=== PATIENT | female | born 1935 | race Caucasian/White ===

== ENCOUNTER 2019-01-31 14:47 | Inpatient (IN) ==
--- NOTE | 2019-01-31 15:14 | Diag Imaging Result Doc PS360 ---
EXAM: KNEE 1-2 VIEWS-RIGHT 01/31/2019 HISTORY: PAIN TECHNIQUE: Right knee two views portable COMMENT: There is joint space narrowing laterally with osteophyte formation. There is a small amount of fluid in the suprapatellar bursa. No evidence of acute fracture or dislocation is present. There is heterotopic ossification in the posterior calf. IMPRESSION: Osteoarthritis. No evidence of acute bony disease. Effusion. Electronically signed by Loyd Dallas 01/31/2019 3:12 PM
--- NOTE | 2019-01-31 16:48 | PROVIDER DOCUMENTATION ---
HPI-Musculoskeletal Pain/Inj - GENERAL Chief Complaint: Extremity Pain Stated Complaint: KNEE SWELLING Time Seen by Provider: 01/31/19 16:29 Source: patient - HX OF PRESENT ILLNESS-MUSKULOSKELTAL Nature of Presenting Problem: patient is a 83 yowf presenting to the ED today for right knee pain, swelling, and redness. she reports she fell on this knee 2 weeks ago, and it started swelling with the redness and warmth on Monday. she reports severe pain. she also reports chills. she denies any CP, SOB, dizziness, nausea, vomiting, diarrhea, fever. patient in no distress on assessment. Quality of Pain: reports: aching, throbbing Severity in ED: moderate Onset/Duration: 2 days ago Timing: still present, getting worse Modifying Factors: improves with: nothing. worse with: massage, movement, palpation Any recent injury?: Yes (fell on it 2 weeks ago ) Locality of Occurance: Home Similar Symptoms Previously?: No Recently seen or treated by another doctor?: No - LOWER EXTREMITY PAIN/INJURY Lower Extremities Pain: knee: right Context / Method of Injury: reports: fell (2 weeks ago) Associated Symptoms: reports: denies symptoms. denies: loss of bladder control, loss of bowel control, lower back pain, muscle spasms, numbness in legs/feet, sensory/motor loss, tingling in legs/feet, weakness in legs/feet Review of Systems - Adult - REVIEW OF SYSTEMS - ADULT Constitutional: reports: chills. denies: fever, night sweats Eyes: reports: no symptoms reported Ears, Nose, Mouth & Throat: reports: no symptoms reported Cardiovascular: reports: no symptoms reported. denies: chest pain, palpitations, syncope Respiratory: reports: no symptoms reported. denies: cough, shortness of breath, wheezing Gastrointestinal: reports: no symptoms reported. denies: abdominal pain, diarrhea, nausea, vomiting Genitourinary: reports: no symptoms reported Musculoskeletal: reports: joint pain (right knee) Integumentary: reports: no symptoms reported Neurological: reports: no symptoms reported. denies: dizziness/vertigo, headache/migraines Endocrine: reports: no symptoms reported Hematologic/Lymphatic: reports: no symptoms reported Allergic/Immunologic: reports: no symptoms reported All Other Systems: Reviewed and Negative Past History - Adult - PAST MEDICAL HISTORY-ADULT Review of Records: reports: Old Records Reviewed, Nursing Assessment Review, Medications Reviewed - SOCIAL HISTORY Smoking: denies Physical Exam-Injury Related - Physical Exam-Injury Related Initial Vital Signs Reviewed: Yes General Appearance: appears well, alert, no apparent distress Eyes: PERRL/EOMI Head, Ears, Nose, Mouth & Throat: normocephalic/atraumatic, moist mucous membranes, normal ENT inspection Neck: non-tender, full range of motion, supple Respiratory: chest non-tender, lungs clear, normal breath sounds, no pleuratic chest pain, no respiratory distress, no accessory muscle use Cardiovascular: normal peripheral pulses, regular rate, rhythm, no edema, no JVD Chest/Breast: deferred Peripheral Pulses: dorsalis-pedis (R): 2+, dorsalis-pedis (L): 2+ Abdominal Exam: normal bowel sounds, non tender, soft Female Genitalia/Pelvic Exam: deferred Rectal Exam: deferred Lymphatic: no adenopathy Back Exam: normal inspection, no CVA tenderness, no vertebral tenderness Extremity: normal range of motion, erythema (right knee), inflammation (right knee), joint effusion (right knee), swelling (right knee), tenderness (right knee) Integumentary: normal color, warm/dry Neurologic: grossly normal, no motor/sensory deficits Psych/Mental Status: normal mood/affect, normal thought content, normal thought process, oriented x 3 - Glascow Coma Score Best Eye Response ([place]): (4) open spontaneously Best Verbal Response ([place]): (5) oriented Best Motor Response ([place]): (6) obeys commands Progress - PLAN OF CARE/RESULTS Progress/Plan/Lab Results: Vital Signs - 8 hr 01/31/19 14:55 Temperature 98.6 F Pulse Rate 73 Respiratory Rate 18 Blood Pressure 162/63 O2 Sat by Pulse Oximetry 97 Laboratory Results - last 24 hr 01/31/19 01/31/19 01/31/19 17:25 17:25 17:25 WBC 12.14 H RBC 3.62 L Hgb 8.7 L Hct 29.4 L MCV 81.2 MCH 24.0 L MCHC 29.6 L RDW Std Deviation 17.4 H Plt Count 256 MPV 11.5 H Immature Gran % (Auto) 0.6 H Neut % (Auto) 56.6 Lymph % (Auto) 26.7 Whitfield % (Auto) 13.7 H Eos % (Auto) 2.1 Baso % (Auto) 0.3 Immature Gran # (Auto) 0.07 H Neut # (Auto) 6.88 H Lymph # (Auto) 3.24 Whitfield # (Auto) 1.66 H Eos # (Auto) 0.25 Baso # (Auto) 0.04 Sodium 141 Potassium 4.6 Chloride 101 Carbon Dioxide 29 Anion Gap 11 BUN 30 H Creatinine 1.4 H Estimated GFR/1.73 m2 36 BUN/Creatinine Ratio 21 Glucose 104 Calculated Osmolality 288 Uric Acid Calcium 9.1 Total Bilirubin 0.32 AST 12 ALT 11 Alkaline Phosphatase 52 Total Protein 5.7 L Albumin 3.8 Globulin 1.9 Albumin/Globulin Ratio 2.0 Plasma Lactate 1.2 01/31/19 17:25 WBC RBC Hgb Hct MCV MCH MCHC RDW Std Deviation Plt Count MPV Immature Gran % (Auto) Neut % (Auto) Lymph % (Auto) Whitfield % (Auto) Eos % (Auto) Baso % (Auto) Immature Gran # (Auto) Neut # (Auto) Lymph # (Auto) Whitfield # (Auto) Eos # (Auto) Baso # (Auto) Sodium Potassium Chloride Carbon Dioxide Anion Gap BUN Creatinine Estimated GFR/1.73 m2 BUN/Creatinine Ratio Glucose Calculated Osmolality Uric Acid 8.6 H Calcium Total Bilirubin AST ALT Alkaline Phosphatase Total Protein Albumin Globulin Albumin/Globulin Ratio Plasma Lactate Orders Category Date Time Status KNEE 1-2 VIEWS-RIGHT [RAD] Stat Exams 01/31/19 14:58 Completed BLOOD CULTURE [BLDCUL] Stat Lab 01/31/19 17:25 Ordered CBC WITH ELECTRONIC DIFF [HEME] Stat Lab 01/31/19 17:25 Completed COMPREHENSIVE METABOLIC PANEL [CHEM] Stat Lab 01/31/19 17:25 Completed LACTATE, PLASMA [CHEM] Stat Lab 01/31/19 17:25 Completed URIC ACID [CHEM] Stat Lab 01/31/19 17:25 Completed URINALYSIS W/POSS RFLX CULT [URINALYSIS] Stat Lab 01/31/19 16:55 Uncollected 0.9% Sodium Chloride Inj [Ns] 1,000 ml Med 01/31/19 16:57 Active IV 75 mls/hr Hydromorphone [Dilaudid] Med 01/31/19 18:43 Discontinued 0.5 mg IV NOW ONE Lidocaine 1% [Xylocaine 1%] Med 01/31/19 17:33 Discontinued 10 ml INJ NOW ONE Ondansetron [Zofran] Med 01/31/19 18:43 Discontinued 4 mg IV NOW ONE Piperacillin/Tazobactam [Zosyn] 3.375 gm Med 01/31/19 19:00 Discontinued 0.9% Sodium Chloride Inj [Ns] 50 ml IV NOW discussed plan of care with patient- she understands and agrees with plan of care and denies any questions at this time. discussed plan of care with Dr. Roque- he will assist in tapping right knee. 1830- Dr. Roque in to tap right knee. will call Dr. Patel. Result Diagrams: 01/31/19 17:25 01/31/19 17:25 - XRAY 1 XRAY: Right XRAY Study: Knee Impression: See EMR Report ( Signed EXAM: KNEE 1-2 VIEWS-RIGHT 01/31/2019 HISTORY: PAIN TECHNIQUE: Right knee two views portable COMMENT: There is joint space narrowing laterally with osteophyte formation. There is a small amount of fluid in the suprapatellar bursa. No evidence of acute fracture or dislocation is present. There is heterotopic ossification in the posterior calf. IMPRESSION: Osteoarthritis. No evidence of acute bony disease. Effusion. Electronically signed by Loyd Dallas 01/31/2019 3:12 PM 01/31/19 1512 Interpreting Physician: Loyd Dallas MD Dictated Date/Time: 01/31/19 1511 cc: Leonid Roque MD; Paola Crooks) - CONSULTS/PCP/HOSPITALIST Notification #1 *Consult/PCP/Hospitalist*: Dr. Patel Time Discussed: 18:40 Reason/Comments: admit for septic joint- will see patient tomorrow Consult Disposition: Admit #2 Consult: Dr. Canela Time Discussed: 19:30 Reason/Comments: admit for septic joint Consult Disposition: Will see in ED, Admit Procedures - ADDITIONAL PROCEDURES Additional Procedure: Injection of Bursa/Joint Time-Out Verification Completed?: Yes Site Prep: Betadine Anesthetic: 1%, Lidocaine/Xylocaine Volume of Anesthetic (ml's): 2 Description of Procedure (Other): Dr. Roque performed procedure to tap right knee. No aspirate obtained. unable to aspirate knee effusion. did under septic conditions, after cleaning thoroughly with Betadine. Departure - Departure Date of Disposition Decision: 01/31/19 Time of Disposition Decision: 18:42 DIAGNOSIS: Joint effusion Qualifiers: Effusion of joint location: knee Laterality: right Qualified Code(s): M25.461 - Effusion, right knee Disposition: ADMITTED INPATIENT 09 Certified Medical Emergency: Emergent Condition: Stable Referrals and Follow-Ups: Paola Crooks [Primary Care Provider] - - Critical Care Note This patient required my direct & personal management of CC.: No Attestation - Physician/ MAR Attestation Patient care was provided by Advanced Practice Provider:: Yes Advanced Practice Provider:: Delaney Brasher Advanced Practice Provider documentation review:: The Mid-level provider documentation, treatment plan and medical decision making was reviewed by the physician who agrees with all treatment and medical decision making by the MLP. The physician spent face to face time with patient:: Yes Advanced Practice Provider documentation review:: Supervising physician onsite and consulted in the evaluation and care of this patient. The physician did have a face to face encounter with the patient.
[2019-01-31] MEDS ORDERED: NS 1,000 ML IV ONE (16:57)
[2019-01-31] MEDS ORDERED: XYLOCAINE 1% INJ ONE (17:33)
[2019-01-31 17:45] LABS: BASO# 0.04 X1000 (0.0-0.2); BASO% 0.3 % (0.0-0.8); EOS# 0.25 X1000 (0.0-0.7); EOS% 2.1 % (0.0-10.0); HEMATOCRIT 29.4 % (37.0-47.0); HEMOGLOBIN 8.7 g/dL (12.0-16.0); IMM GRAN# 0.07 X1000 (0.0-0.04); IMM GRAN% 0.6 % (0.0-0.5); LYMPH# 3.24 X1000 (1.2-3.4); LYMPH% 26.7 % (20.5-51.1); MCHC 29.6 g/dL (33-37); MCV 81.2 FL (81-99); MONO# 1.66 X1000 (0.11-0.59); MONO% 13.7 % (1.7-9.3); MPV 11.5 FL (7.4-10.4); NEUT# 6.88 X1000 (1.4-6.5); NEUT% 56.6 % (42.2-75.2); PLT 256 X1000 (130-400); RBC 3.62 XMIL (4.2-5.4); RDW 17.4 % (11.5-14.5); WBC 12.14 X1000 (4.8-10.8)
[2019-01-31 18:23] LABS: ALBUMIN 3.8 g/dL (3.5-5.0); CALCIUM 9.1 mg/dL (8.8-10.2); CREATININE 1.4 mg/dL (0.5-0.9); POTASSIUM 4.6 mmol/L (3.5-5.1); TOTAL BILIRUBIN 0.32 mg/dL (0.20-1.00); TOTAL PROTEIN 5.7 g/dL (6.3-8.3)
[2019-01-31] MEDS ORDERED: DILAUDID IV ONE (18:43)
[2019-01-31] MEDS ORDERED: ZOFRAN IV ONE (18:43)
[2019-01-31] MEDS ORDERED: ZOSYN 3.375 GM in NS 50 ML IV ONE (19:00)
[2019-01-31] MEDS ORDERED: VANCOMYCIN 1 GM/NS 1 GM/250 ML IVPB IV ONE (20:13)
[2019-01-31 20:51] LABS: URINE SOURCE CATH
[2019-01-31 20:54] LABS: BILIRUBIN URINE NEGATIVE (NEGATIVE); BLOOD URINE NEGATIVE (NEGATIVE); COLOR YELLOW; GLUCOSE URINE NEGATIVE (NEGATIVE); KETONE URINE NEGATIVE (NEGATIVE); LEUKOCYTES URINE NEGATIVE (NEGATIVE); NITRITE URINE NEGATIVE (NEGATIVE); PH URINE 5.5; PROTEIN URINE 70 mg/dL (NEGATIVE); SP GRAVITY URINE 1.017; TURBIDITY URINE CLEAR (CLEAR); UROBILINOGEN URINE NORMAL (NORMAL)
[2019-01-31 20:56] LABS: UR EPITHELIAL CELLS <10 /HPF (<10); URINE BACTERIA NEGATIVE /HPF; URINE RBC <10 /HPF (<10); URINE WBC <10 /HPF (<10)
[2019-01-31] MEDS ORDERED: NORCO-7.5 PO PRN (20:56)
[2019-01-31] MEDS ORDERED: VANCOMYCIN IV PER PHARMACY MISC SCH (20:56)
[2019-01-31] MEDS ORDERED: TYLENOL PO PRN (20:56)
[2019-01-31] MEDS ORDERED: ZOFRAN IV PRN (20:56)
[2019-01-31] MEDS: SINGULAIR PO SCH (21:55)
[2019-01-31] MEDS: KLONOPIN PO SCH (21:55)
[2019-01-31] MEDS: LOVENOX SUBQ SCH (21:55)
[2019-01-31] MEDS: ROCEPHIN 2 GM in NS 50 ML IV SCH (21:55)
[2019-01-31] MEDS ORDERED: VANCOMYCIN 2,000 MG in NS 500 ML IV ONE (22:00)
--- NOTE | 2019-02-01 03:06 | HISTORY AND PHYSICAL ---
CHIEF COMPLAINT: Right knee swelling. HISTORY OF PRESENT ILLNESS: Patient is an 83-year-old very pleasant female who notes she fell approximately 2 weeks ago, started having pain almost immediately in her knee, but thought it would get better. Over the next 2 weeks began getting more red, swollen and irritated today. It was increased swelling, increased warmth. She was having difficulty walking. She is also having swelling in the lower extremity and therefore the family convinced her to come to the ER. REVIEW OF SYSTEMS: She denies any fevers, chills, cough, congestion. Denies any upper respiratory type symptoms. Denies any other joints or pains. Denies headaches, blurred vision. Denies any dysuria, urinary frequency, urgency, constipation, melena, hematochezia. Denies any skin rashes. Denies weight loss or weight gain. FAMILY HISTORY: Noncontributory. SOCIAL HISTORY: The patient lives at home. She is on oxygen. Does not smoke or drink. She lives alone. ALLERGIES: No known drug allergies. MEDICATIONS: Humira, albuterol, amlodipine/benazepril 10/40, clonazepam, Lexapro, Lasix 40. It appears as though she may be on losartan 100 as well, metoprolol 50, Singulair 10. PAST MEDICAL HISTORY: Significant for hypertension, depression, chronic anxiety, COPD. PHYSICAL EXAMINATION: VITAL SIGNS: Reviewed. Temperature 98 degrees, pulse 73, respiratory 18, BP 162/63, saturation 97% on room air. GENERAL: Patient is awake, alert, very pleasant. She is in no respiratory distress. HEENT: Normocephalic. NECK: Supple. CARDIOVASCULAR: Regular rate. No murmurs. CHEST: Clear and unlabored. ABDOMEN: Soft, obese, nondistended. EXTREMITIES: Moves all extremities although does have painful movement of right lower extremity with 1+ edema in her lower extremity. She does have good pulses. She has inflammation, erythema and swelling as well as joint effusion of the right knee with tenderness. NEUROLOGIC: She is awake, alert, oriented. She is in no respiratory distress. LABORATORIES: WBCs 12. Hemoglobin and hematocrit 8.7 and 29. CMP normal. ASSESSMENT: 1. Joint effusion right knee. 2. Probable septic joint, right knee. 3. Leukocytosis. 4. Gout. 5. Hypertension. 6. Chronic anxiety. 7. Chronic depression. PLAN: We will admit patient to hospital. IV antibiotics. We will follow. We will continue her home medications. We will consult Ortho for assistance. Further orders as needed. cc: Alex Canela MD
[2019-02-01 06:15] LABS: BASO# 0.01 X1000 (0.0-0.2); BASO% 0.1 % (0.0-0.8); EOS# 0.17 X1000 (0.0-0.7); EOS% 2.1 % (0.0-10.0); HEMATOCRIT 27.9 % (37.0-47.0); HEMOGLOBIN 8.1 g/dL (12.0-16.0); IMM GRAN# 0.04 X1000 (0.0-0.04); IMM GRAN% 0.5 % (0.0-0.5); LYMPH# 1.95 X1000 (1.2-3.4); LYMPH% 23.6 % (20.5-51.1); MCH 23.9 PG (27-31); MCV 82.3 FL (81-99); MONO# 1.07 X1000 (0.11-0.59); MONO% 12.9 % (1.7-9.3); MPV 11.5 FL (7.4-10.4); NEUT# 5.04 X1000 (1.4-6.5); NEUT% 60.8 % (42.2-75.2); PLT 246 X1000 (130-400); RBC 3.39 XMIL (4.2-5.4); RDW 17.4 % (11.5-14.5); WBC 8.28 X1000 (4.8-10.8)
[2019-02-01 06:42] LABS: CALCIUM 8.4 mg/dL (8.8-10.2); CREATININE 1.5 mg/dL (0.5-0.9); MAGNESIUM 1.9 mg/dL (1.5-2.7); POTASSIUM 3.9 mmol/L (3.5-5.1)
--- NOTE | 2019-02-01 07:49 | ORTHOPAEDICS CONSULTATION ---
DATE: 01/31/2019 CHIEF COMPLAINT: Right knee pain. CLINICAL HISTORY: Patient is a pleasant 83-year-old female who is approximately 2 weeks status post fall, landing on her right knee. She states that she has been doing relatively well on the knee until 2 days ago when she had developed redness and increased warmth 2 days ago. She reports that she has increased discomfort in the knee. Also has subjective chills. She denies any nausea, vomiting or dizziness. Given the patient's clinical findings, recommendation for admission to the hospital for IV antibiotics and further evaluation. Orthopedic consultation was requested. HOME MEDICATIONS: 1. Albuterol 2.5 mg inhaler q.4 hours p.r.n. 2. Symbicort 2 puffs inhaler p.o. daily. 3. Cefdinir 300 mg p.o. daily. 4. Lexapro 10 mg p.o. daily. 5. Lasix 20 mg p.o. daily. 6. Losartan/potassium 100 mg p.o. daily. 7. Metoprolol succinate 50 mg p.o. daily. 8. Prednisone 5 mg p.o. daily. 9. Potassium chloride 10 mg p.o. daily. 10. Amlodipine/benazepril 10/40 mg p.o. daily. 11. Clonazepam 0.25 mg p.o. at bedtime. 12. Singulair 10 mg p.o. daily. ALLERGIES: She has she has no known drug allergies. PHYSICAL EXAMINATION: The patient's right lower extremity has increased warmth along the anterior aspect of the knee along the prepatellar bursa. She has significant tenderness to palpation at this site. There is some firmness to the site and increased warmth. Remaining portion has some mild fullness. She has no obvious intra-articular effusion. She has good flexion and extension of the knee. She has no significant tenderness to palpation along the medial or lateral joint line. The calf is soft. IMAGING: X-rays were reviewed and revealed some degenerative arthritic changes. No evidence of acute abnormality. There appeared to be some fullness and fluid in the prepatellar bursa. IMPRESSION: Cellulitis of the right knee with prepatellar bursal infection. PLAN: At this point, given patient's findings, she has no clinical signs at this time of septic joint. She has been placed on IV antibiotics. We will monitor progress through the night to see how she responds through the night. All other questions are answered. cc: Byron Patel MD MTDD
[2019-02-01 10:09] LABS: URINE SOURCE CLEAN CATCH
[2019-02-01 10:17] LABS: BILIRUBIN URINE NEGATIVE (NEGATIVE); BLOOD URINE NEGATIVE (NEGATIVE); COLOR YELLOW; GLUCOSE URINE NEGATIVE (NEGATIVE); KETONE URINE NEGATIVE (NEGATIVE); LEUKOCYTES URINE SMALL (NEGATIVE); NITRITE URINE NEGATIVE (NEGATIVE); PH URINE 5.5; PROTEIN URINE 30 mg/dL (NEGATIVE); SP GRAVITY URINE 1.021; TURBIDITY URINE CLEAR (CLEAR); UR EPITHELIAL CELLS <10 /HPF (<10); URINE BACTERIA NEGATIVE /HPF; URINE RBC <10 /HPF (<10); URINE WBC <10 /HPF (<10); UROBILINOGEN URINE NORMAL (NORMAL)
[2019-02-01] MEDS: KLOR-CON PO SCH (10:18)
[2019-02-01] MEDS: LEXAPRO PO SCH (10:18)
[2019-02-01] MEDS: COZAAR PO SCH (10:19)
[2019-02-01] MEDS: LASIX PO SCH (10:19)
[2019-02-01] MEDS: PRILOSEC PO SCH (10:19)
[2019-02-01] MEDS: TOPROL XL PO SCH (10:19)
[2019-02-01] MEDS: PREDNISONE PO SCH (10:19)
[2019-02-01] MEDS: LOTREL 5/20 MG PO SCH (10:19)
[2019-02-01] MEDS: ALBUTEROL NEB INH PRN ×2 (11:43→19:41)
[2019-02-01] MEDS: SYMBICORT 160/4.5 MICROGM INHALER INH SCH (11:46)
[2019-02-01] MEDS: LOVENOX SUBQ SCH (23:04)
[2019-02-01] MEDS: SINGULAIR PO SCH (23:04)
[2019-02-01] MEDS: KLONOPIN PO SCH (23:04)
[2019-02-01] MEDS: ROCEPHIN 2 GM in NS 50 ML IV SCH (23:05)
--- NOTE | 2019-02-01 23:30 | ORTHOPAEDICS PROGRESS NOTE ---
DATE: 02/01/2019 SUBJECTIVE: The patient is a pleasant 83-year-old female who was admitted to the hospital yesterday with increased redness and warmth of her knee, consistent with cellulitis and suspicion for prepatellar bursal infection. The patient responded well through the night with IV antibiotics, and has less discomfort. OBJECTIVE: On physical exam, the patient's right lower extremity erythema is much improved. Still continues with tenderness to palpation anteriorly, likely due to her recent trauma from her fall 2 weeks ago. She has good range of motion of her knee. LABORATORY DATA: Her white count has improved to 8.8. She has decreased from 12.14 to 8.28 today. IMPRESSION: Right knee contusion with cellulitis. PLAN: At this point the patient seems to be responding well with IV antibiotics. We will continue. There are no signs or symptoms of a septic joint. The patient will be stable from an orthopedic standpoint, and we will be available if needed. cc: Byron Patel MD
--- NOTE | 2019-02-02 06:13 | Extremity Venous Study ---
PROCEDURE NAME: Venous U/S Right Leg - 01/31/2019 STUDY: Right lower extremity venous duplex, and color flow imaging study using the GE Vivid E9 Ultrasound System with a 9 L-D transducer. REFERRING PHYSICIAN: Dr. Canela. IDENTIFYING DATA: An 83-year-old female. SUPERVISOR DRAWING: Yvonne Enriquez RVT. INDICATIONS: Pain and edema right lower extremity. Rule out deep venous thrombosis. FINDINGS: Right common femoral vein and its branches, deep and superficial femoral veins were satisfactorily imaged. They had flow through them and were compressible. Right popliteal vein and the deep veins below the right knee were all compressible and had flow through them. The superficial veins of the right lower extremity were compressible throughout their length. INTERPRETATION: No evidence of acute deep or superficial venous thrombosis right lower extremity. cc: MD Victor M Rubio CRNP
[2019-02-02] MEDS: ALBUTEROL NEB INH PRN ×2 (07:21→19:27)
[2019-02-02] MEDS: SYMBICORT 160/4.5 MICROGM INHALER INH SCH (07:23)
[2019-02-02] MEDS: LEXAPRO PO SCH (09:06)
[2019-02-02] MEDS: TOPROL XL PO SCH (09:06)
[2019-02-02] MEDS: PRILOSEC PO SCH (09:06)
[2019-02-02] MEDS: KLOR-CON PO SCH (09:06)
[2019-02-02] MEDS: PREDNISONE PO SCH (09:06)
[2019-02-02] MEDS: LOTREL 5/20 MG PO SCH (09:07)
[2019-02-02] MEDS: LASIX PO SCH (09:07)
[2019-02-02] MEDS: COZAAR PO SCH (09:07)
--- NOTE | 2019-02-02 10:10 | PROGRESS NOTE ---
DATE: 02/02/2019 Ms. Quintero says she feels much better. Her right knee is much less tender and it appears less swollen as well. OBJECTIVE: Vital Signs: Temp, T-max was 97.5 degrees, pulse 80, respirations 18, blood pressure 122/50. HEENT: Pupils are equal and round. Lungs: Are clear in all lung warren. Cardiovascular: Regular rhythm and rate without murmur or S3. Abdomen: Is soft. Skin: Is warm and dry. Extremities: Right knee still with some warmth anterior knee but decreased swelling and decreased pain to bending the knee. ASSESSMENT AND PLAN: 1. Right knee contusion with cellulitis. This appears to be responding well to antibiotics. She had one of her blood cultures 1/2 grew out coagulase-negative Staphylococcus, so we will wait on ID. Clinically, she is doing much better. 2. Leukocytosis. 3. Gout. 4. Hypertension. 5. Anxiety. 6. Depression. Note she had a history of gout and this very well could be consistent with what is going on in the knee as well. I will check uric acid level. Actually, she had 1 drawn. It was 8.6. Electrolytes from yesterday: Sodium 141, potassium 4.39, chloride 104, BUN 28, creatinine 1.5. She is on vancomycin 1750 mg IV q.48 hours, getting ceftriaxone 2 g q.12 q.24 hours. I am going to put her on allopurinol 300 mg a day and start her on some colchicine twice a day. cc: Sudeep Villarreal MD
[2019-02-02] MEDS: COLBENEMID PO SCH ×2 (11:58→20:54)
[2019-02-02] MEDS: ZYLOPRIM PO SCH (11:58)
[2019-02-02] MEDS: KLONOPIN PO SCH (20:45)
[2019-02-02] MEDS: LOVENOX SUBQ SCH ×2 (20:45→22:28)
[2019-02-02] MEDS: SINGULAIR PO SCH (20:45)
[2019-02-02] MEDS: ROCEPHIN 2 GM in NS 50 ML IV SCH (20:48)
[2019-02-02] MEDS ORDERED: VANCOMYCIN 1,750 MG in NS 250 ML IV SCH (22:00)
[2019-02-03 06:28] LABS: BASO# 0.02 X1000 (0.0-0.2); BASO% 0.2 % (0.0-0.8); EOS# 0.46 X1000 (0.0-0.7); EOS% 5.2 % (0.0-10.0); HEMATOCRIT 28.6 % (37.0-47.0); HEMOGLOBIN 8.3 g/dL (12.0-16.0); IMM GRAN% 1.1 % (0.0-0.5); LYMPH# 1.91 X1000 (1.2-3.4); LYMPH% 21.5 % (20.5-51.1); MCV 82.7 FL (81-99); MONO# 0.94 X1000 (0.11-0.59); MONO% 10.6 % (1.7-9.3); MPV 11.4 FL (7.4-10.4); NEUT# 5.45 X1000 (1.4-6.5); NEUT% 61.4 % (42.2-75.2); PLT 331 X1000 (130-400); RBC 3.46 XMIL (4.2-5.4); RDW 17.5 % (11.5-14.5); WBC 8.88 X1000 (4.8-10.8)
[2019-02-03 06:47] LABS: ALB/GLOB RATIO 1.2; ALBUMIN 3.3 g/dL (3.5-5.0); CALCIUM 8.4 mg/dL (8.8-10.2); CREATININE 1.6 mg/dL (0.5-0.9); MAGNESIUM 2.2 mg/dL (1.5-2.7); POTASSIUM 4.8 mmol/L (3.5-5.1); TOTAL BILIRUBIN 0.21 mg/dL (0.20-1.00)
[2019-02-03] MEDS: SYMBICORT 160/4.5 MICROGM INHALER INH SCH (07:37)
[2019-02-03] MEDS ORDERED: LASIX IV ONE (07:59)
--- NOTE | 2019-02-03 08:10 | PROGRESS NOTE ---
DATE: 02/03/2019 SUBJECTIVE: She her knee feels much better. She says she is having no more trouble breathing this morning. She was sleeping when I came in. Had nasal cannula on. Easy to arouse. She did have some end expiratory wheezes appreciated. PHYSICAL EXAMINATION: Vital Signs: Temperature 97.9 degrees, pulse 74, respirations 18, blood pressure 141/67. HEENT: Pupils are equal round. Lungs: Clear in all lung warren but there is end expiratory wheezing and really no prolonged expiratory phase. Cardiovascular: Regular rhythm and rate without murmur or S3. Abdomen: Soft. Skin: Warm and dry. LABORATORY DATA: White count reviewed from yesterday 8880, hematocrit is 28, hemoglobin 8.3, platelet count 331,000. Sodium 141, potassium 4.8, chloride 105, BUN 26, creatinine 1.6. Yesterday, creatinine was 1.5. ASSESSMENT AND PLAN: 1. Right knee contusion with cellulitis. I suspect underlying acute gouty arthritis as well. I put her on colchicine and she is started on allopurinol. Her knee feels much better. We will continue her present antibiotics. 2. A bit of wheezing. She does have albuterol ordered. I am going to put her on a steroid inhaler. I will probably give her 1 dose of Lasix today 40 mg IV. She already takes Lasix 20 mg in the morning. Continue present regimen. She may be able to be discharged tomorrow. cc: Sudeep Villarreal MD
[2019-02-03] MEDS: ALBUTEROL NEB INH PRN ×4 (08:44→23:33)
[2019-02-03] MEDS: ADVAIR 250/50 DISKUS INH SCH ×2 (08:44→19:27)
[2019-02-03] MEDS: ZYLOPRIM PO SCH (09:47)
[2019-02-03] MEDS: KLOR-CON PO SCH (09:47)
[2019-02-03] MEDS: LEXAPRO PO SCH (09:47)
[2019-02-03] MEDS: PREDNISONE PO SCH (09:47)
[2019-02-03] MEDS: COZAAR PO SCH (09:47)
[2019-02-03] MEDS: LOTREL 5/20 MG PO SCH (09:47)
[2019-02-03] MEDS: COLBENEMID PO SCH ×2 (09:47→21:52)
[2019-02-03] MEDS: LASIX PO SCH (09:48)
[2019-02-03] MEDS: TOPROL XL PO SCH (09:48)
[2019-02-03] MEDS: PRILOSEC PO SCH (09:48)
[2019-02-03] MEDS: KLONOPIN PO SCH (21:51)
[2019-02-03] MEDS: LOVENOX SUBQ SCH (21:52)
[2019-02-03] MEDS: SINGULAIR PO SCH (21:52)
[2019-02-03] MEDS: ROCEPHIN 2 GM in NS 50 ML IV SCH (23:30)
[2019-02-04] MEDS ORDERED: LASIX IV ONE (08:09)
[2019-02-04] MEDS: SYMBICORT 160/4.5 MICROGM INHALER INH SCH (08:10)
[2019-02-04] MEDS: ALBUTEROL NEB INH PRN (08:10)
[2019-02-04] MEDS: LASIX PO SCH (08:12)
[2019-02-04] MEDS: LOVENOX SUBQ SCH ×2 (08:30→23:25)
[2019-02-04] MEDS: LEXAPRO PO SCH (08:31)
[2019-02-04] MEDS: PREDNISONE PO SCH (08:32)
[2019-02-04] MEDS: ZYLOPRIM PO SCH (08:32)
[2019-02-04] MEDS: TOPROL XL PO SCH (08:32)
[2019-02-04] MEDS: KLOR-CON PO SCH (08:32)
[2019-02-04] MEDS: PRILOSEC PO SCH (08:33)
[2019-02-04] MEDS: COLBENEMID PO SCH ×2 (08:33→23:25)
[2019-02-04] MEDS: LOTREL 5/20 MG PO SCH (08:33)
[2019-02-04] MEDS: COZAAR PO SCH (08:33)
[2019-02-04] MEDS ORDERED: NS 1,000 ML IV SCH (11:45)
--- NOTE | 2019-02-04 12:01 | Diag Imaging Result Doc PS360 ---
EXAM: CHEST-PORTABLE 02/04/2019 HISTORY: sob TECHNIQUE: AP portable at 1147 COMMENT: There is cardiomegaly. The pulmonary vascularity is increased and there is increased interstitial opacity in both bases. There are bilateral pleural effusions. There is atelectasis versus pneumonia in the left lower lobe. There are no previous studies. IMPRESSION: Cardiomegaly. Left pleural effusion greater than right pleural effusion. Mild interstitial pulmonary edema. Atelectasis versus pneumonia left lower lobe. Electronically signed by Loyd Dallas 02/04/2019 11:58 AM
--- NOTE | 2019-02-04 12:01 | PROGRESS NOTE ---
DATE: 02/04/2019 SUBJECTIVE: She is complaining of some shortness of breath this morning. Her right knee is better, but she reports that she has had shortness of breath at home like this as well. Apparently, she spent 2 weeks in [place]. She received some blood, and they treated her for pneumonia. Her primary care doctor is Dr. Komal Acosta. OBJECTIVE: Temperature 97.4 degrees, pulse 72, respirations 24 and blood pressure 145/92.HEENT: Pupils are equal and round. Lungs: Clear in all lung warren. Cardiovascular: Regular rhythm and rate without murmur or S3. Abdomen: Soft. Skin: Warm and dry. Extremities: Right knee with diminished swelling and no tenderness right now. Urine output by report looks like over 2 L. LABORATORY DATA: White count from yesterday 8880, down from 12,000 on admission, hematocrit 28, hemoglobin 8.3, and platelet count 331,000. Chemistries from yesterday show creatinine was 1.6. She came in with creatinine of 1.4. CURRENT ORDERS: She is on amlodipine and benazepril. She has a 5-10 combination. I think she is taking 2 tablets daily, Klonopin 0.25 mg at bedtime. I got her on colchicine 1 twice a day, Lexapro 10 mg a day, metoprolol 50 mg daily, Prilosec 40 mg a day, prednisone 5 mg a day, ceftriaxone 2 g IV q.24 hours, and vancomycin 1750 mg q.48 hours. I gave her 1 dose of Lasix yesterday and 1 dose today. We will repeat her chest x-ray now. I am going to get noninvasive venous studies of her legs. I went ahead and put her on high-dose Lovenox, and we will see if we can get a CT angiogram. Right now, I do want to do with her creatinine of 1.6 so we may need to get a V/Q scan instead. cc: Sudeep Villarreal MD
--- NOTE | 2019-02-04 14:50 | Diag Imaging Result Doc PS360 ---
EXAM: LUNG SCAN / VQ INDICATION: sob TECHNIQUE: 40.4 mCi of aerosolized technetium 99 DTPA was administered for the ventilation portion of the scan. 5.1 mCi of IV technetium 99 MAA was administered for the perfusion portion of the scan. COMPARISON: None. FINDINGS: No matched or unmatched perfusion defects are identified. The ventilation portion of the scan is unremarkable as well. IMPRESSION: Negative VQ scan. Electronically signed by Sohail Smith 02/04/2019 2:47 PM
[2019-02-04] MEDS: ADVAIR 250/50 DISKUS INH SCH (17:01)
[2019-02-04] MEDS: KLONOPIN PO SCH (23:25)
[2019-02-04] MEDS: SINGULAIR PO SCH (23:25)
[2019-02-05] MEDS: ALBUTEROL NEB INH PRN ×4 (04:35→19:33)
[2019-02-05 05:43] LABS: ALLEN TEST YES; BE 3.6 mmoll (-3.0-3.0); BLOOD TYPE ARTERIAL; HCO3-(ACT) 27.7 mmoll (20.0-26.0); METHB 0.5 % (0.0-1.5); MODALITY CANNULA; O2(CT) 10.7 mL/dL (15.0-23.0); O2HB 92.3 % (95.0-99.0); PCO2(98.6) 44 mmHg (35-45); PO2(98.6) 61 mmHg (60-100); SAMPLE BLOOD; SAO2 93.8 % (95.0-100.0); THB 8.2 g/dL (11.5-17.4); pH(98.6) 7.42 (7.35-7.45)
--- NOTE | 2019-02-05 07:12 | Diag Imaging Result Doc PS360 ---
EXAM: CHEST-PORTABLE 02/05/2019 HISTORY: pulmonary edema TECHNIQUE: AP portable at 0543 COMMENT: There is bibasilar atelectasis versus pneumonia and some opacity and volume loss in the inferior portion of the right upper lobe. The lower lobe opacity on the left has improved since 02/04/2019. The right upper lobe opacity is slightly worse. There continues to be cardiomegaly. There is increased pulmonary vascularity. The possibility of mild pulmonary edema cannot be excluded. IMPRESSION: Improved atelectasis versus pneumonia left lower lobe. Cardiomegaly and mild pulmonary edema. Electronically signed by Loyd Dallas 02/05/2019 7:10 AM
[2019-02-05 07:24] LABS: BASO# 0.06 X1000 (0.0-0.2); BASO% 0.7 % (0.0-0.8); EOS% 5.7 % (0.0-10.0); HEMATOCRIT 27.1 % (37.0-47.0); HEMOGLOBIN 7.9 g/dL (12.0-16.0); IMM GRAN# 0.19 X1000 (0.0-0.04); IMM GRAN% 2.2 % (0.0-0.5); LYMPH# 1.84 X1000 (1.2-3.4); LYMPH% 21.1 % (20.5-51.1); MCH 24.1 PG (27-31); MCHC 29.2 g/dL (33-37); MCV 82.6 FL (81-99); MONO# 1.03 X1000 (0.11-0.59); MONO% 11.8 % (1.7-9.3); NEUT% 58.5 % (42.2-75.2); PLT 355 X1000 (130-400); RBC 3.28 XMIL (4.2-5.4); RDW 17.8 % (11.5-14.5); WBC 8.72 X1000 (4.8-10.8)
[2019-02-05 07:46] LABS: ALB/GLOB RATIO 1.3; ALBUMIN 3.2 g/dL (3.5-5.0); CALCIUM 9.1 mg/dL (8.8-10.2); CREATININE 1.5 mg/dL (0.5-0.9); POTASSIUM 4.2 mmol/L (3.5-5.1); TOTAL BILIRUBIN 0.26 mg/dL (0.20-1.00); TOTAL PROTEIN 5.6 g/dL (6.3-8.3)
[2019-02-05] MEDS: SYMBICORT 160/4.5 MICROGM INHALER INH SCH (08:09)
[2019-02-05] MEDS: LASIX PO SCH (10:02)
[2019-02-05] MEDS: KLOR-CON PO SCH (10:04)
[2019-02-05] MEDS: TOPROL XL PO SCH (10:04)
[2019-02-05] MEDS: PREDNISONE PO SCH (10:04)
[2019-02-05] MEDS: PRILOSEC PO SCH (10:04)
[2019-02-05] MEDS: ZYLOPRIM PO SCH (10:04)
[2019-02-05] MEDS: COLBENEMID PO SCH ×2 (10:04→22:31)
[2019-02-05] MEDS: COZAAR PO SCH (10:04)
[2019-02-05] MEDS: LEXAPRO PO SCH (10:05)
[2019-02-05] MEDS: LOVENOX SUBQ SCH ×2 (10:05→22:34)
[2019-02-05] MEDS ORDERED: LASIX IV ONE (10:26)
[2019-02-05] MEDS: MAXIPIME 1 GM in NS 50 ML IV SCH (11:03)
[2019-02-05 11:06] LABS: IRON SATURATION 7 %; TIBC 291 ug/dL; TOTAL IRON 19 ug/dL (49-151); UNBOUND IRON 272 ug/dL (112-346)
[2019-02-05 11:19] LABS: FERRITIN 63 ng/mL (13-150)
[2019-02-05] MEDS ORDERED: VITAMIN D PO SCH (12:15)
--- NOTE | 2019-02-05 12:56 | Diag Imaging Result Doc PS360 ---
EXAM: CT THORAX W/O CONTRAST 02/05/2019 HISTORY: pneumonia TECHNIQUE: This exam was performed using automated exposure control, adjustment of mA or kV according to patient size, and/or use of iterative reconstruction technique. COMMENT: There are no previous studies available for comparison. There are bilateral pleural effusions. There are some nonspecific aorticopulmonary window and right paratracheal nodes. One of the latter measures up to 16 mm. There are calcifications in the aorta and coronary arteries. There is no evidence of acute bony abnormality. There are patchy groundglass opacities in the left upper lobe posteriorly and in the left lower lobe. There is compressive atelectasis in both lung bases. IMPRESSION: Bilateral pleural effusions. Bibasilar atelectasis. Left upper and lower lobe bronchopneumonia. Electronically signed by Loyd Dallas 02/05/2019 12:54 PM
[2019-02-05] MEDS: VENOFER 200 MG in NS 150 ML IV SCH (16:24)
[2019-02-05] MEDS: ZYVOX 600 MG/D5W 600 MG/300 ML IVPB IV SCH (18:24)
--- NOTE | 2019-02-05 19:05 | PROGRESS NOTE ---
DATE: 02/05/2019 SUBJECTIVE: The patient states that she still feels short of breath. OBJECTIVE: Vital Signs: Temperature 97.9 degrees, blood pressure 149/75, heart rate 88, respirations 22, O2 saturation is 96% on 3 L nasal cannula. General: This is a morbidly obese female, lying in bed in no acute distress. Heart: S1, S2 normal. Regular rate and rhythm. Lungs: Coarse breath sounds bilaterally. Diminished breath sounds at the bases. Abdomen: Positive bowel sounds. Soft, obese, nontender, nondistended. Extremities: Edema 1+ bilaterally. Neurologic: The patient is alert and oriented x3. LABORATORY DATA: White blood cell count 8.7, hemoglobin 7.9, hematocrit 27, platelets 355,000. Sodium 144, potassium 4.2, chloride 105, CO2 of 27, BUN 27, creatinine 1.5, glucose 97. ASSESSMENT AND PLAN: 1. Acute on chronic hypoxemic respiratory failure. The patient has bilateral pleural effusions and left-sided pneumonia. We will start the patient on antibiotics. We will also check a sputum culture. Initial blood cultures were noted to be negative. 2. Left lobe pneumonia. We will start the patient on cefepime and Zyvox, and check a sputum Gram stain and culture. 3. Bilateral pleural effusions. We will continue with diuretic therapy and monitor for improvement. 4. Morbid obesity. Aware. 5. Gout. Continue on allopurinol. 6. Chronic obstructive pulmonary disease. Continue on Symbicort and bronchodilator therapy. 7. Vitamin D deficiency. We will start the patient on vitamin D replacement. 8. Iron deficiency anemia. We will start the patient on Venofer infusions. 9. Anxiety disorder. Continue on Klonopin. 10. Right knee cellulitis. We will start the patient on antibiotic therapy. 11. Acute kidney injury on CKD. Improved. cc: Vesta Johnson MD MTDAdiel
[2019-02-05] MEDS: KLONOPIN PO SCH (22:31)
[2019-02-05] MEDS: SINGULAIR PO SCH (22:32)
[2019-02-06] MEDS: MAXIPIME 1 GM in NS 50 ML IV SCH ×2 (01:22→12:02)
[2019-02-06] MEDS: ZYVOX 600 MG/D5W 600 MG/300 ML IVPB IV SCH ×2 (04:52→16:17)
[2019-02-06 06:48] LABS: BASO# 0.11 X1000 (0.0-0.2); BASO% 1.1 % (0.0-0.8); EOS# 0.45 X1000 (0.0-0.7); EOS% 4.6 % (0.0-10.0); HEMATOCRIT 29.5 % (37.0-47.0); HEMOGLOBIN 8.6 g/dL (12.0-16.0); IMM GRAN# 0.51 X1000 (0.0-0.04); IMM GRAN% 5.2 % (0.0-0.5); LYMPH# 2.81 X1000 (1.2-3.4); LYMPH% 28.7 % (20.5-51.1); MCH 23.9 PG (27-31); MCHC 29.2 g/dL (33-37); MCV 81.9 FL (81-99); MONO# 1.06 X1000 (0.11-0.59); MONO% 10.8 % (1.7-9.3); MPV 10.8 FL (7.4-10.4); NEUT# 4.84 X1000 (1.4-6.5); NEUT% 49.6 % (42.2-75.2); PLT 430 X1000 (130-400); RDW 17.9 % (11.5-14.5); WBC 9.78 X1000 (4.8-10.8)
[2019-02-06 07:25] LABS: CALCIUM 8.9 mg/dL (8.8-10.2); CREATININE 1.3 mg/dL (0.5-0.9); POTASSIUM 3.3 mmol/L (3.5-5.1)
[2019-02-06] MEDS ORDERED: POTASSIUM CHLORIDE 20% LIQUID PO ONE (07:29)
[2019-02-06] MEDS: SYMBICORT 160/4.5 MICROGM INHALER INH SCH (07:45)
[2019-02-06] MEDS: ALBUTEROL NEB INH PRN ×2 (07:45→12:34)
[2019-02-06] MEDS: PREDNISONE PO SCH (09:30)
[2019-02-06] MEDS: KLOR-CON PO SCH (09:30)
[2019-02-06] MEDS: COLBENEMID PO SCH ×2 (09:30→21:25)
[2019-02-06] MEDS: ZYLOPRIM PO SCH (09:30)
[2019-02-06] MEDS: TOPROL XL PO SCH (09:30)
[2019-02-06] MEDS: LOVENOX SUBQ SCH (09:31)
[2019-02-06] MEDS: COZAAR PO SCH (09:31)
[2019-02-06] MEDS: PRILOSEC PO SCH (09:31)
[2019-02-06] MEDS: VENOFER 200 MG in NS 150 ML IV SCH (09:32)
[2019-02-06] MEDS ORDERED: LASIX IV ONE (09:47)
--- NOTE | 2019-02-06 18:50 | PROGRESS NOTE ---
DATE: 02/06/2019 SUBJECTIVE: The patient is resting comfortably in bed. She complains of shortness of breath and diarrhea. OBJECTIVE: Vital Signs: Temperature 98.2 degrees, blood pressure 146/60, heart rate 66, respirations 22, O2 saturation 95% on 3 L nasal cannula. Urine output 600, intake 1.1 L. General: This is a morbidly obese female lying in bed, in no acute distress. Heart: S1, S2 normal, bradycardic. Lungs: Coarse breath sounds bilaterally. Abdomen: Positive bowel sounds. Soft, nontender, nondistended. Extremities: Trace pedal edema. Neurologic: The patient is alert and oriented x3. LABORATORY DATA: White blood cell count 9.7, hemoglobin 8.6, hematocrit 29, platelets 430,000. Sodium 142, potassium 3.3, chloride 103, CO2 is 26, BUN 24, creatinine 1.3, glucose 111. ASSESSMENT AND PLAN: 1. Acute on chronic hypoxemic respiratory failure. Continue to treat the underlying pneumonia. 2. Left lobe pneumonia. Continue on cefepime and Zyvox. 3. Bilateral pleural effusions. Continue with diuretic therapy. 4. Morbid obesity. Aware. 5. Diarrhea. We will check the stool for Clostridium difficile and add lactobacillus. 6. Gout. Continue on allopurinol. 7. Vitamin D deficiency. Continue on vitamin D replacement. 8. Iron-deficiency anemia. Continue with iron supplementation. 9. Anxiety disorder. Continue on Klonopin. 10. Right knee cellulitis. Continue with antibiotic therapy. 11. Acute kidney injury on CKD. Improved. 12. Deep vein thrombosis prophylaxis. Continue on Lovenox. cc: MD KAYDEN Castro
[2019-02-06] MEDS: KLONOPIN PO SCH (21:25)
[2019-02-06] MEDS: CULTURELLE PO SCH (21:25)
[2019-02-06] MEDS: SINGULAIR PO SCH (21:26)
[2019-02-07] MEDS: MAXIPIME 1 GM in NS 50 ML IV SCH ×2 (01:38→13:25)
[2019-02-07] MEDS: ZYVOX 600 MG/D5W 600 MG/300 ML IVPB IV SCH ×2 (05:06→16:37)
[2019-02-07 07:33] LABS: HEMOGLOBIN 8.1 g/dL (12.0-16.0); MCH 24.6 PG (27-31); MCHC 28.9 g/dL (33-37); MCV 85.1 FL (81-99); MPV 10.3 FL (7.4-10.4); RBC 3.29 XMIL (4.2-5.4); RDW 17.9 % (11.5-14.5); WBC 8.19 X1000 (4.8-10.8)
[2019-02-07 07:43] LABS: MAGNESIUM 1.9 mg/dL (1.5-2.7); PHOSPHORUS 2.7 mg/dL (2.7-4.5)
[2019-02-07] MEDS: ALBUTEROL NEB INH PRN ×4 (07:43→23:21)
[2019-02-07] MEDS: SYMBICORT 160/4.5 MICROGM INHALER INH SCH (07:43)
[2019-02-07 07:50] LABS: CALCIUM 9.4 mg/dL (8.8-10.2); CREATININE 1.3 mg/dL (0.5-0.9)
[2019-02-07] MEDS: VENOFER 200 MG in NS 150 ML IV SCH (08:05)
[2019-02-07] MEDS: TOPROL XL PO SCH (08:06)
[2019-02-07] MEDS: COLBENEMID PO SCH ×2 (08:06→21:20)
[2019-02-07] MEDS: KLOR-CON PO SCH (08:06)
[2019-02-07] MEDS: LOVENOX SUBQ SCH (08:07)
[2019-02-07] MEDS: PRILOSEC PO SCH (08:07)
[2019-02-07] MEDS: CULTURELLE PO SCH ×2 (08:07→21:20)
[2019-02-07] MEDS: COZAAR PO SCH (08:07)
[2019-02-07] MEDS: PREDNISONE PO SCH (08:07)
[2019-02-07] MEDS: ZYLOPRIM PO SCH (08:07)
[2019-02-07] MEDS ORDERED: LASIX IV ONE (11:17)
[2019-02-07] MEDS ORDERED: IMODIUM PO ONE (15:09)
--- NOTE | 2019-02-07 16:35 | PROGRESS NOTE ---
DATE: 02/07/2019 SUBJECTIVE: The patient states that she did not sleep well last night. She states that she has been having liquid stools. OBJECTIVE: Vital Signs: Temperature 98.1 degrees, blood pressure 143/78, heart rate 62, respirations 20, O2 saturation 94% on 2 L nasal cannula. Intake 1 L; output 1.3 L. General: This is a chronically ill-appearing, elderly female lying in bed in no acute distress. Heart: S1, S2 normal. Regular rate and rhythm. Lungs: Coarse breath sounds bilaterally. Abdomen: Positive bowel sounds. Soft, nontender, nondistended. Extremities: No edema. No cyanosis. No calf tenderness. Neurologic: The patient is alert and oriented x3. LABS: White blood cell count 8, hemoglobin 8.1, hematocrit 28, platelets 388. Sodium 144, potassium 4, chloride 106, CO2 27. BUN 19, creatinine 1.3, glucose 110. ASSESSMENT AND PLAN: 1. Acute on chronic hypoxemic respiratory failure. 2. Left lower lobe pneumonia. Continue on cefepime, Zyvox and bronchodilator therapy. 3. Bilateral pleural effusions. Continue with diuretic therapy. Will repeat a chest x-ray tomorrow. 4. Morbid obesity. Aware. 5. Chronic kidney disease stage III. Stable. 6. Diarrhea. The stool for Clostridium difficile was negative. Will give the patient a dose of Imodium. 7. Vitamin D deficiency. Continue vitamin D replacement. 8. History of gout. Continue on allopurinol. 9. Anxiety disorder. Continue on Klonopin. 10. Iron deficiency anemia. The patient received 3 days of Venofer. We will continue to monitor the hemoglobin and hematocrit closely. 11. Deep vein thrombosis prophylaxis. Continue on Lovenox. 12. Continue with physical therapy. cc: Vesta Johnson MD
[2019-02-07] MEDS: SINGULAIR PO SCH (21:20)
[2019-02-07] MEDS: KLONOPIN PO SCH (21:20)
[2019-02-08] MEDS: ZYVOX 600 MG/D5W 600 MG/300 ML IVPB IV SCH ×2 (04:11→15:03)
[2019-02-08 07:22] LABS: HEMATOCRIT 26.9 % (37.0-47.0); HEMOGLOBIN 7.8 g/dL (12.0-16.0); MCH 24.8 PG (27-31); MCV 85.7 FL (81-99); MPV 10.5 FL (7.4-10.4); RBC 3.14 XMIL (4.2-5.4); RDW 17.9 % (11.5-14.5); WBC 7.55 X1000 (4.8-10.8)
[2019-02-08 07:31] LABS: CALCIUM 9.2 mg/dL (8.8-10.2); CREATININE 1.5 mg/dL (0.5-0.9); POTASSIUM 3.5 mmol/L (3.5-5.1)
[2019-02-08] MEDS: SYMBICORT 160/4.5 MICROGM INHALER INH SCH (08:08)
--- NOTE | 2019-02-08 08:09 | Diag Imaging Result Doc PS360 ---
EXAM: CHEST-2 VIEWS 02/08/2019 HISTORY: pneumonia TECHNIQUE: PA and lateral chest COMMENT: There are bilateral pleural effusions more so on the left than the right. This is worse than on 02/05/2019. There is apparent bibasilar atelectasis. IMPRESSION: Worsened pleural effusions. Electronically signed by Loyd Dallas 02/08/2019 8:06 AM
[2019-02-08] MEDS: ZYLOPRIM PO SCH (09:26)
[2019-02-08] MEDS: PRILOSEC PO SCH (09:26)
[2019-02-08] MEDS: COZAAR PO SCH (09:26)
[2019-02-08] MEDS: KLOR-CON PO SCH (09:26)
[2019-02-08] MEDS: PREDNISONE PO SCH (09:26)
[2019-02-08] MEDS: TOPROL XL PO SCH (09:26)
[2019-02-08] MEDS: CULTURELLE PO SCH ×2 (09:26→22:13)
[2019-02-08] MEDS: COLBENEMID PO SCH ×2 (09:26→22:27)
[2019-02-08] MEDS: LOVENOX SUBQ SCH (09:26)
[2019-02-08] MEDS ORDERED: LASIX IV ONE (11:15)
--- NOTE | 2019-02-08 12:07 | PROGRESS NOTE ---
DATE: 02/08/2019 SUBJECTIVE: Patient reports still short of breath. She did not sleep well last night. Denies any fever or chills. OBJECTIVE: Vital Signs: Temperature 98.5 degrees, heart rate 62, respiratory 14, blood pressure 149/50, O2 saturation 95% 3 L nasal cannula. General Examination: This is a chronically ill appearing and obese 83-year-old female lying in bed, in no acute distress. Cardiovascular: S1, S2 heard. No murmurs, gallops, or rubs. Regular rate and rhythm. Respiratory Exam: Coarse breath sounds noted in both pulmonary warren, mostly noted in both bases. Patient is not using any accessory muscles or having work of breathing. Abdomen: Soft, nontender to palpation. Nondistended. Bowel sounds present. No organomegaly. Extremities: No clubbing, cyanosis, or edema. Peripheral pulses present in both legs. Neurological: Patient is alert and oriented x3. Moves all 4 extremities. LABORATORY DATA: White cell count 7.55, hemoglobin 7.8, hematocrit 26.9, platelets 362,000. Normal BMP except creatinine 1.5. ASSESSMENT AND PLAN: 1. Acute on chronic hypoxemic respiratory failure. Patient is feeling short of breath. Hypoxemic respiratory failure secondary to left lower lobe pneumonia. The patient, even though she is on 3 L of oxygen by nasal cannula at home, she feels short of breath. She has left lower lobe pneumonia. She is receiving Zyvox and cefepime and also DuoNeb. The x-ray from today shows worsened pleural effusion, so in that regard, I decided to give to her 60 mg of Lasix IV. We will continue with current management. The patient is not developing any fever or there is no elevated white cell count. In any case, I prefer to consult Pulmonary and Infectious Disease and we will go from there. 2. Morbid obesity, aware. 3. Chronic kidney disease stage 2. Creatinine around baseline. 4. Diarrhea. Clostridium difficile workup was negative, so she is receiving Imodium. 5. Vitamin D deficiency. We will continue replenishing vitamin D. 6. History of gout. The patient is on allopurinol. 7. Anxiety disorder. Patient currently is on Klonopin. Will continue with same management. 8. Iron-deficiency anemia. Even though the patient has received 3 days of Venofer, her hemoglobin is still low in the range of 7.8. At this point, we will continue to monitor CBC daily. 9. Deep vein thrombosis prophylaxis, on Lovenox. 10. Physical deconditioning. We will continue with PT. cc: Tay Hwang MD
[2019-02-08] MEDS: MAXIPIME 1 GM in NS 50 ML IV SCH ×3 (14:14)
--- NOTE | 2019-02-08 19:27 | PULMONOLOGY CONSULTATION ---
DATE: 02/08/2019 REQUESTING PHYSICIAN: Tay Hwang MD REASON FOR CONSULTATION: Bronchopneumonia, bilateral pleural effusions. HISTORY OF PRESENT ILLNESS: Ms. Quintero is an 83-year-old white female with a greater than 40- pack-year history of tobacco, COPD and chronic hypoxemic respiratory failure, on continuous oxygen for the last several months but on chronic nocturnal oxygen for the last several years, who is chronically immunosuppressed while taking Humira for psoriasis. The patient injured her right knee which subsequently developed progressive swelling and pain, along with increasing lower extremity edema. She reported one chill and some sweats prior to coming to the emergency room. Her white blood count was elevated at 12.14. She was evaluated by Orthopedics, and attempt at aspiration of the right knee was negative. Her leukocytosis has resolved. The patient's family reports she does have snoring at night. She does have periods of witnessed apnea. She has been improving but has not yet returned to her baseline. PAST MEDICAL HISTORY: 1. Chronic obstructive pulmonary disease. 2. Psoriasis. 3. Hypoxemic respiratory failure. 4. Obesity. 5. Hypertension. 6. Anxiety/depression. 7. History of gout. SOCIAL HISTORY: The patient smoked from her late teens to early 20s until mid 60s. No alcohol use. FAMILY HISTORY: Noncontributory to current presentation. PHYSICAL EXAMINATION: Physical exam reveals an obese white female who is conversant and without increased work of breathing. Blood pressure 106/53, heart rate 69, respiratory rate 20, oxygen saturation 99% on nasal cannula. Maximum temperature during this hospital was 100.6 degrees on 02/01/2019, but she has been afebrile for the last 24 hours. HEENT: Pupils are equal and reactive. Oropharynx is clear. Neck is supple. Chest reveals diminished breath sounds in both lung bases with bilateral crackles. Cardiac exam: S1, S2. Abdomen is obese and soft. Extremities reveal some tenderness with erythema just lateral to the kneecap. The left leg is without edema or erythema. DIAGNOSTIC DATA: CT scan of the thorax revealed small bilateral pleural effusions, with minimal parenchymal infiltrates in the left upper and lower lobes. Chest x-ray today reveals bilateral effusions. IMPRESSION: An 83-year-old with: 1. Chronic obstructive pulmonary disease. 2. Hypoxemic respiratory failure. 3. Small effusions. 4. Minimal pneumonia/infiltrates on chest x-ray. 5. Witnessed obstructive sleep apnea events. 6. Chronic immunosuppression associated with Humira. 7. Cellulitis of the right knee. No fluid could be identified to suggest abscess. RECOMMENDATIONS: 1. Continue bronchial hygiene as you are doing. 2. Encourage ambulation. 3. Continue antibiotics. The patient is at risk for immunocompromised infections due to her immunocompromised state associated with continuous Humira use. 4. Recommend an outpatient sleep evaluation. cc: Edmond Norman MD
--- NOTE | 2019-02-08 19:57 | INFECTIOUS DISEASE CONSULT REP ---
DATE: 02/08/2019 CONCLUSION: The patient has cellulitis of her right leg, which occurred when she fell on her knee. She also has, as seen on CT scan, a left upper lobe pneumonia. RECOMMENDATIONS: I agree with treating the patient with Zyvox and cefepime. I have increased the dose of cefepime to 2 g IV every 12 hours. DISCUSSION: The patient tells me she fell on her knee and her leg became red. The patient tells me that now the erythema is much less than it was when she came in the hospital. She is not complaining of cough, but she did have increased shortness of breath. The patient's CBC shows a white count [place] 7550, hemoglobin 7.8, platelet count 362,000. Creatinine is 1.5, GFR is 33. Procalcitonin is 0.15, which translates into being unlikely to have pneumonia. Chest x-ray shows worsening pleural effusion. CT scan of the chest shows a left upper lobe pneumonia. PAST MEDICAL HISTORY/REVIEW OF SYSTEMS: Eyes and ears: She has decreased hearing and vision. Neck: No stiffness. Respiratory: See present illness. Cardiac: No chest pain or palpitations. Gastrointestinal: She does not have any nausea, vomiting, or diarrhea. Genitourinary: No dysuria or flank pain. Neurologic: No seizures. No loss of motor or sensory function. OBSTETRIC/GYNECOLOGIC HISTORY: She is a 10, para 10, AB 0. She has had a hysterectomy and bilateral salpingo-oophorectomy. She delivered one of her children by section. PREVIOUS HOSPITALIZATIONS/OPERATIONS: The patient has had 9 labor and deliveries and 1 section. She has had a hysterectomy and bilateral salpingo-oophorectomy. She has been in the hospital for anemia. MEDICAL DISEASES: Positive for borderline diabetes mellitus, congestive heart failure, chronic obstructive pulmonary disease. INFECTIOUS DISEASE HISTORY: Positive for pneumonia and UTI. FAMILY HISTORY: Positive for diabetes mellitus, stroke, myocardial infarction, and cancer. SOCIAL HISTORY: [place] She lives [place]. She is a . She stopped smoking cigarettes years ago. She does not drink alcoholic beverages or abuse drugs. ALLERGIES: Her chart lists no known drug allergies. HOME MEDICATIONS: Include Humira, albuterol, Symbicort, cefdinir, clonazepam, Lexapro, Lasix, losartan, metoprolol, Singulair, and prednisone. PHYSICAL EXAMINATION: Vital Signs: Temperature is 99 degrees, pulse 93, respirations 24, blood pressure 159/83. Patient weighs 164 pounds. General: This is an obese, elderly female. She is in no acute distress. Head/eyes/ears/nose/throat: She can hear my spoken words and see near objects. There are no white patches in her mouth. Neck: No meningismus. Lungs: Clear to auscultation. Cardiovascular: Heart rate is irregular. Abdomen: Soft and nontender. Neurologic: The patient is alert. She can move her extremities. There is no tremor. Her sensation is intact to touch. Her memory as regarding her medical history, seems intact. Extremities: The right leg shows some erythema around the right knee area. There is no definite fluid in the knee that I can palpate. The prepatellar bursa is not swollen or tender. Integument: No rash. Thank you for the consult. cc: Harsha Blake MD
[2019-02-08] MEDS: SINGULAIR PO SCH (22:13)
[2019-02-08] MEDS: KLONOPIN PO SCH (22:14)
[2019-02-08] MEDS: MAXIPIME 2 GM in NS 100 ML IV SCH (23:34)
[2019-02-09] MEDS: ZYVOX 600 MG/D5W 600 MG/300 ML IVPB IV SCH ×2 (04:12→15:12)
[2019-02-09 06:23] LABS: HEMATOCRIT 28.1 % (37.0-47.0); HEMOGLOBIN 8.3 g/dL (12.0-16.0); MCH 25.1 PG (27-31); MCHC 29.5 g/dL (33-37); MCV 84.9 FL (81-99); MPV 10.8 FL (7.4-10.4); RBC 3.31 XMIL (4.2-5.4); RDW 18.7 % (11.5-14.5); WBC 7.71 X1000 (4.8-10.8)
[2019-02-09] MEDS: SYMBICORT 160/4.5 MICROGM INHALER INH SCH (08:02)
[2019-02-09] MEDS: PREDNISONE PO SCH (08:48)
[2019-02-09] MEDS: LOVENOX SUBQ SCH (08:48)
[2019-02-09] MEDS: PRILOSEC PO SCH (08:50)
[2019-02-09] MEDS: COLBENEMID PO SCH ×2 (08:51→20:48)
[2019-02-09] MEDS: ZYLOPRIM PO SCH (08:51)
[2019-02-09] MEDS: KLOR-CON PO SCH (08:55)
[2019-02-09] MEDS: CULTURELLE PO SCH ×2 (08:58→20:47)
[2019-02-09] MEDS: ALBUTEROL NEB INH PRN ×3 (09:04→19:36)
[2019-02-09] MEDS: TOPROL XL PO SCH (09:16)
[2019-02-09] MEDS: COZAAR PO SCH (09:21)
[2019-02-09 10:03] LABS: BASO# 0.09 X1000 (0.0-0.2); BASO% 1.1 % (0.0-0.8); EOS# 0.48 X1000 (0.0-0.7); EOS% 5.7 % (0.0-10.0); HEMATOCRIT 31.1 % (37.0-47.0); HEMOGLOBIN 8.9 g/dL (12.0-16.0); IMM GRAN# 0.17 X1000 (0.0-0.04); LYMPH# 3.72 X1000 (1.2-3.4); LYMPH% 43.8 % (20.5-51.1); MCH 24.3 PG (27-31); MCHC 28.6 g/dL (33-37); MONO# 0.79 X1000 (0.11-0.59); MONO% 9.3 % (1.7-9.3); MPV 10.1 FL (7.4-10.4); NEUT# 3.24 X1000 (1.4-6.5); NEUT% 38.1 % (42.2-75.2); PLT 416 X1000 (130-400); RBC 3.66 XMIL (4.2-5.4); RDW 18.4 % (11.5-14.5); WBC 8.49 X1000 (4.8-10.8)
[2019-02-09 10:35] LABS: CALCIUM 9.6 mg/dL (8.8-10.2); CREATININE 1.6 mg/dL (0.5-0.9); POTASSIUM 3.9 mmol/L (3.5-5.1)
--- NOTE | 2019-02-09 12:00 | PROGRESS NOTE ---
DATE: 02/09/2019 SUBJECTIVE: I was called for event from the nurse that this patient was not feeling well and she was very short of breath. I came to her room and patient reports that she is more short of breath than yesterday. She was not able to sleep in a flat position but she denies any chest pain or fever. OBJECTIVE: Vital signs: Temperature 97.6 degrees, heart rate 61, respiratory rate 18, blood pressure 115/59, O2 saturation 95% on 3 L nasal cannula. General: This is a chronically ill appearing and obese 83-year-old female, lying in bed, in no acute distress. Cardiovascular: S1, S2 heard. No murmurs, gallops, or rubs. Regular rate and rhythm. Respiratory: Coarse breath sounds noted in both pulmonary warren, mostly noted in both bases. Actually, the same in comparing with yesterday. Patient is not using any accessory muscles or having work of breathing. Abdomen: Soft, nontender to palpation. Nondistended. Bowel sounds present. No organomegaly. Extremities: No clubbing, cyanosis, or edema. Peripheral pulses present in both legs. Neurological: The patient is alert and oriented x3. Moves 4 extremities. LABORATORY DATA: White cell count 8.49, hemoglobin 8.9, hematocrit 31.1 platelets 416,000. There is no BMP yet. ASSESSMENT AND PLAN: 1. Acute on chronic hypoxemic respiratory failure secondary to left lower lobe pneumonia. The patient continues to feel short of breath, actually is getting worse this morning. The patient has been evaluated by Infectious Disease doctor, in this case they decided to continue with Zyvox and cefepime, that the doses have increased to 2 every 12 hours. Regarding that change and being on DuoNeb every 4 hours as scheduled, the patient continues to complain or shortness of breath. So another concern from me is pulmonary embolism so in that regard, we are going to order a CT angiogram of the chest to rule out that condition. In the meantime, we will continue with current management. In this case, breathing treatments and intravenous steroids as well. 2. Chronic kidney disease stage 2. Creatinine around baseline. We will continue to monitor. 3. Diarrhea, resolved. 4. Vitamin D deficiency. We will continue with replenish vitamin D. 5. History of gout. We will continue with allopurinol. 6. Anxiety disorder. We will continue with Klonopin. 7. Iron deficiency anemia. The patient is going to receive Venofer and today the hemoglobin is 8.9. We will continue to monitor. 8. Deep vein thrombosis prophylaxis. On Lovenox. 9. Physical deconditioning. We will continue with physical therapy. DISPOSITION: Because this patient is getting more short of breath, I prefer to transfer her to [facility], do a CT angiogram of the chest and we will go from there. cc: Tay Hwang MD
[2019-02-09 12:43] LABS: HEMOGLOBIN A1C 5.8 % (4.8-6.0)
--- NOTE | 2019-02-09 13:05 | Diag Imaging Result Doc PS360 ---
EXAM: CT ANGIOGRM PULMONARY ARTERIES 02/09/2019 HISTORY: sob TECHNIQUE: This exam was performed using automated exposure control, adjustment of mA or kV according to patient size, and/or use of iterative reconstruction technique. COMMENT: 3-D MIPS were performed. There is no evidence of filling defects in the pulmonary arteries. There are bilateral pleural effusions. There is a hiatal hernia. There is some calcification in the left anterior descending coronary artery. The thoracic aorta is partially calcified and there is noncalcific atheromatous change. There is no evidence of dissection or aneurysm. There is compressive atelectasis in both lower lobes. There are old fractures of the third and fourth right anterior ribs, otherwise there is no evidence of acute bony abnormality. Compared to 02/05/2019, the pleural effusions and basilar atelectasis were present previously. Patchy groundglass opacities which were present previously in the lingula and left lower lobe have apparently resolved. IMPRESSION: No evidence of pulmonary emboli. Bilateral pleural effusions and atelectasis. Improved pneumonia in the left lower lobe and lingula. Electronically signed by Loyd Dallas 02/09/2019 1:03 PM
--- NOTE | 2019-02-09 13:39 | EKG Report ---
Test Performed on : 02/09/2019 1:02:00 PM Test Reason : Confirm Rhythm Blood Pressure : / mmHG Vent. Rate : 050 BPM Atrial Rate : 047 BPM P-R Int : 000 ms QRS Dur : 070 ms QT Int : 418 ms P-R-T Axes : 000 -01 200 degrees QTc Int : 381 ms Atrial fibrillation. with slow ventricular response. Moderate voltage criteria for LVH, may be normal variant ST & T wave abnormality, consider lateral ischemia Abnormal ECG No previous ECGs available Confirmed by Andrew Pimentel MD ([id number]) on 02/10/2019 9:33:12 PM
[2019-02-09] MEDS: MAXIPIME 2 GM in NS 100 ML IV SCH (15:12)
--- NOTE | 2019-02-09 17:39 | PULMONOLOGY PROGRESS NOTE ---
DATE: 02/09/2019 SUBJECTIVE: The patient reports some increased shortness of breath earlier today but this is apparently resolved. An EKG was performed which revealed atrial fibrillation with a slow ventricular response. She is being transferred to the [facility] and a CT pulmonary angiogram has been ordered by Dr. Butts. OBJECTIVE: Vital Signs: The patient has been afebrile for the last 24 hours, heart rate 67, respiratory rate 16, oxygen saturation 96% on nasal cannula. HEENT: Pupils are equal and reactive. Oropharynx is clear. Neck: Supple. Chest: Reveals prolonged expiratory phase with crackles in the lung bases. Cardiac: S1-S2. Abdomen: Obese and soft. Extremities: Reveal trace edema. LABORATORIES: CT angiogram is pending. White blood count 8.49, hemoglobin 8.9, platelet count 416,000. Sodium 141, potassium 3.9, chloride 100, bicarbonate 29, BUN 18, creatinine 1.6. IMPRESSION: An 83-year-old with 1. Chronic obstructive pulmonary disease. 2. Chronic hypoxemic respiratory failure. 3. Bilateral effusion. 4. Family witnessed obstructive sleep apnea events. 5. Chronic immunosuppression associated with Humira. 6. Cellulitis of the right knee. 7. New onset atrial fibrillation. 8. Increasing shortness of breath. The patient had negative V/Q scan earlier this admission. DISCUSSION: 83-year-old with problems outlined above. The patient does have some increased shortness of breath today. I suspect that this is multifactorial and due to atrial fibrillation with loss of atrial kick, COPD, and pleural effusions. PLAN: 1. Continue bronchial hygiene. 2. Will consider additional attempts at diuresis pending improvement in cardiac rate and output. 3. Continue current antibiotics. 4. Recommend outpatient sleep evaluation. 5. Follow up CT scan of the thorax after it has been completed. cc: Edmond Norman MD
[2019-02-09] MEDS: SINGULAIR PO SCH (20:47)
[2019-02-09] MEDS: KLONOPIN PO SCH (20:47)
[2019-02-10] MEDS: MAXIPIME 2 GM in NS 100 ML IV SCH ×2 (02:28→14:04)
[2019-02-10] MEDS: ZYVOX 600 MG/D5W 600 MG/300 ML IVPB IV SCH ×2 (02:28→14:04)
[2019-02-10 05:45] LABS: BASO# 0.07 X1000 (0.0-0.2); BASO% 0.9 % (0.0-0.8); EOS# 0.34 X1000 (0.0-0.7); EOS% 4.6 % (0.0-10.0); HEMATOCRIT 27.8 % (37.0-47.0); HEMOGLOBIN 8.1 g/dL (12.0-16.0); IMM GRAN# 0.12 X1000 (0.0-0.04); IMM GRAN% 1.6 % (0.0-0.5); LYMPH# 2.74 X1000 (1.2-3.4); LYMPH% 37.1 % (20.5-51.1); MCH 24.5 PG (27-31); MCHC 29.1 g/dL (33-37); MONO# 0.83 X1000 (0.11-0.59); MONO% 11.2 % (1.7-9.3); MPV 10.5 FL (7.4-10.4); NEUT# 3.28 X1000 (1.4-6.5); NEUT% 44.6 % (42.2-75.2); PLT 347 X1000 (130-400); RBC 3.31 XMIL (4.2-5.4); RDW 18.7 % (11.5-14.5); WBC 7.38 X1000 (4.8-10.8)
[2019-02-10 06:07] LABS: CREATININE 1.7 mg/dL (0.5-0.9); POTASSIUM 3.9 mmol/L (3.5-5.1)
[2019-02-10] MEDS: SYMBICORT 160/4.5 MICROGM INHALER INH SCH (08:12)
[2019-02-10] MEDS: ALBUTEROL NEB INH PRN ×4 (08:12→19:41)
--- NOTE | 2019-02-10 08:12 | PROGRESS NOTE ---
DATE: 02/10/2019 SUBJECTIVE: The patient reports feeling and breathing much better. Denies any chest pain or fever. OBJECTIVE: Vital Signs: Temperature 97.3 degrees, heart rate 93, respiratory rate 17, blood pressure 143/79, O2 saturation 94% on 3 L nasal cannula. General Examination: This is a chronically ill-appearing and obese, 83-year-old, female lying in bed, in no acute distress. Cardiovascular Examination: S1 and S2 heard. No murmurs, gallops, or rubs. Regular rate and rhythm. Respiratory Examination: Minimal coarse breath sounds noted in both pulmonary warren, mostly noted in bases. I do not hear any wheezing today. The patient is not using any accessory muscles or having work of breathing. Decreased breath sounds globally with minimal crackles noted in both pulmonary bases. I do not hear any wheezing. Patient is not using any accessory muscles or having work of breathing. Abdomen: Soft. A little bit distended but nontender to palpation. Bowel sounds present. No organomegaly. Extremities: No clubbing, cyanosis. Mild edema noted in both lower extremities. Peripheral pulses present in both legs. Neurological Examination: The patient is alert and oriented x3. Moves 4 extremities. Laboratory Data: White cell count 7.38, hemoglobin 8.1, hematocrit 27.8, platelets 347,000. BMP remarkable for creatinine of 1.6. ASSESSMENT AND PLAN: 1. Acute on chronic hypoxemic respiratory failure secondary to left lower lobe pneumonia. The patient reports feeling better today. She continues to require 2 L of oxygen by nasal cannula, that is the same that she used at home for her chronic obstructive pulmonary disease. Currently, she is receiving Zyvox. Today is day #5 of treatment. On cefepime, today is day #2 of this medication at 2 g intravenous every [address] Blake is also following this patient. She continues to receive DuoNeb every 4 hours as scheduled. We have ordered a CT angiogram of the chest for possible pulmonary embolism, considering her worsening shortness of breath, but it did not show any clot. It reveals bilateral pleural effusion, atelectasis. Considering that her renal function is elevated and bilateral pleural effusions are not big, and also the fact that this patient is feeling better, I do not think we need to use any Lasix at this time. Pulmonary is following this patient. We will follow recommendations. 2. Chronic kidney disease stage 2. Creatinine is a little bit elevated in comparing with baseline that is usually 1.4 to 1.5. We will continue to monitor. BMP daily. 3. Diarrhea, resolved. 4. Vitamin D deficiency. We will continue with repletion of vitamin D. 5. History of gout. The patient has been on colchicine and probenecid. Considering her renal function and the fact that she is not complaining of any pain, we will stop those medication now. 6. Anxiety disorder. We will continue with Klonopin. We are going to be cautious with this medication, considering that it can cause some respiratory depression. 7. Iron deficiency anemia. The patient here received Venofer three days. Hemoglobin is 8.1 today. We will continue to monitor. 8. Physical deconditioning. We will continue with physical therapy. 9. Disposition. At this point, we will continue to monitor here in the [facility] unit. We will follow recommendations from pulmonary and infectious disease. cc: Tay Hwang MD
--- NOTE | 2019-02-10 08:32 | INFECTIOUS DISEASE PROGRESS NO ---
DATE: 02/10/2019 PRESENT ILLNESS: The patient was admitted the hospital with cellulitis of her leg. This has improved quite a bit. She also was found on a CT scan to have a left upper lobe pneumonia. MEDICATIONS: The patient is on day 3 of a combination of Zyvox and cefepime. PHYSICAL EXAMINATION: Vital Signs: The patient's temperature is 97.7 degrees, pulse 93, respirations 17, blood pressure 143/79. General: This is an obese, elderly female. She seemed to be slightly dyspneic at rest. Head, Eyes, Ears, Nose, and Throat: She can hear my spoken words and see near objects. There is no drainage coming from her nose or ears. Neck: No meningismus. Lungs: There were bibasilar rales. Cardiovascular: Heart rate is regular. Abdomen: Soft and nontender. Neurologic: The patient is awake. She sitting in her bed. She is able to walk to the bathroom. LAB AND X-RAY: CBC today shows a white count of 7380, hemoglobin 8.1, and platelet count 347,000. The creatinine is 1.7. GFR is 29. The patient's pulmonary angiogram shows no evidence of pulmonary emboli. There are bilateral pleural effusions and atelectasis. There is improvement in the pneumonia in the left lower lobe and lingula. ASSESSMENT AND PLAN: The patient's cellulitis is almost completely cleared up. The patient still appears to have pneumonia. My plan would be to continue the current antibiotics. Also, a chest x- ray will be repeated. The patient has cellulitis of right leg which has healed and pneumonia in the left chest. My plan would be to continue the current antibiotics. COMORBIDITIES: The patient is elderly. She has borderline diabetes. She has congestive heart failure and chronic obstructive pulmonary disease. cc: Harsha Blake MD
[2019-02-10] MEDS: COZAAR PO SCH (08:40)
[2019-02-10] MEDS: CULTURELLE PO SCH ×2 (08:40→20:38)
[2019-02-10] MEDS: ZYLOPRIM PO SCH (08:40)
[2019-02-10] MEDS: LOVENOX SUBQ SCH (08:41)
[2019-02-10] MEDS: PRILOSEC PO SCH (08:41)
[2019-02-10] MEDS: KLOR-CON PO SCH (08:41)
[2019-02-10] MEDS: PREDNISONE PO SCH (08:41)
--- NOTE | 2019-02-10 15:26 | PULMONOLOGY PROGRESS NOTE ---
DATE: 02/10/2019 SUBJECTIVE: The patient is awake, alert, and conversant. She reports her breathing has improved. She is without specific complaints. OBJECTIVE: BP 122/53, heart rate 62, respiratory rate 17, oxygen saturation 98% on 3.5 L of nasal cannula. The patient has been afebrile for the last 24 hours.HEENT: Pupils are equal and reactive. Oropharynx appears clear. Neck: Supple. Chest: Reveals decreased breath sounds in the lung bases. Cardiac: S1, S2 with a regular rhythm. Abdomen: Obese and soft. Extremities: Reveal decreasing erythema over the right knee. LABORATORIES: Sodium 144, potassium 3.9, chloride 107, bicarbonate 28, BUN 20, creatinine 1.7. White blood count 7.38, hemoglobin 8.1, platelet count 347,000. IMPRESSION: An 83-year-old with 1. Chronic obstructive pulmonary disease. 2. Chronic hypoxemic respiratory failure. 3. Bilateral effusions. 4. Chronic immunosuppression associated with Humira use for psoriasis. 5. Cellulitis of the right knee, which continues to improve. 6. Atrial fibrillation. 7. Mild worsening of creatinine, possibly related to contrast use and chronic kidney disease. PLAN: 1. Continue current bronchial hygiene. 2. Continue oxygen for hypoxemic respiratory failure. 3. Antibiotics per Infectious Disease. 4. Recommend outpatient sleep evaluation. cc: Edmond Norman MD
[2019-02-10] MEDS: KLONOPIN PO SCH (20:37)
[2019-02-10] MEDS: SINGULAIR PO SCH (20:38)
[2019-02-11] MEDS: MAXIPIME 2 GM in NS 100 ML IV SCH ×2 (02:16→14:22)
[2019-02-11] MEDS: ZYVOX 600 MG/D5W 600 MG/300 ML IVPB IV SCH ×2 (02:16→14:22)
[2019-02-11 05:56] LABS: CREATININE 1.6 mg/dL (0.5-0.9); POTASSIUM 3.5 mmol/L (3.5-5.1)
--- NOTE | 2019-02-11 06:09 | Diag Imaging Result Doc PS360 ---
EXAM: CHEST-PORTABLE HISTORY: abnormal exam TECHNIQUE: Single view COMPARISON: 02/08/2019 FINDINGS: The heart remains enlarged. There is pulmonary edema and small pleural effusions. Atelectasis is found in the left base. IMPRESSION: Persistent cardiomegaly with pulmonary edema and pleural effusions consistent with congestive failure. Electronically signed by Jay Laura 02/11/2019 6:07 AM
[2019-02-11 06:21] LABS: BASO# 0.06 X1000 (0.0-0.2); BASO% 0.9 % (0.0-0.8); EOS# 0.31 X1000 (0.0-0.7); EOS% 4.6 % (0.0-10.0); HEMATOCRIT 27.2 % (37.0-47.0); HEMOGLOBIN 7.9 g/dL (12.0-16.0); IMM GRAN# 0.06 X1000 (0.0-0.04); IMM GRAN% 0.9 % (0.0-0.5); LYMPH# 2.39 X1000 (1.2-3.4); LYMPH% 35.7 % (20.5-51.1); MCH 24.7 PG (27-31); MONO# 0.62 X1000 (0.11-0.59); MONO% 9.3 % (1.7-9.3); MPV 10.6 FL (7.4-10.4); NEUT# 3.26 X1000 (1.4-6.5); NEUT% 48.6 % (42.2-75.2); PLT 298 X1000 (130-400); RDW 18.7 % (11.5-14.5)
--- NOTE | 2019-02-11 07:28 | INFECTIOUS DISEASE PROGRESS NO ---
DATE: 02/11/2019 PRESENT ILLNESS: The patient has cellulitis of her leg, and also left upper lobe pneumonia. MEDICATIONS: This is day 6 of treatment with Zyvox and cefepime. PHYSICAL EXAMINATION: Vital Signs: Temperature is 98.2 degrees, pulse 67, respirations 18, blood pressure 127/62. General: This is an obese, ill-appearing, elderly female. She is in no acute distress. HEENT: She can hear my spoken words and see near objects. I did not notice any white coating of her tongue. Neck: No pain with movement of the neck. Lungs: Clear to auscultation. Cardiovascular: Heart rate is regular. Abdomen: Soft and nontender. Neurologic: The patient is alert. She can move her extremities. She does not get up on her own. She has to call the nurses, and with their help, she can walk to the bathroom. Extremities: The patient has edema, but no erythema in either leg. IMAGING AND LABORATORY DATA: Chest x-ray shows pulmonary edema, atelectasis, and pleural effusions. The patient's creatinine is 1.6. GFR is 31. CBC shows a white count of 6700, hemoglobin 7.9, and platelet count 298,000. ASSESSMENT AND PLAN: The patient's cellulitis has cleared, and her pneumonia is much better. I have discussed with Dr. Butts, and since the patient lives in a trailer and is the only one living there, she may require going to rehabilitation. In any event, when the patient is discharged, I will give her oral antibiotics to complete treatment for her pneumonia. As mentioned above, the cellulitis has cleared. COMORBIDITIES: The patient is elderly. She has borderline diabetes. She also has congestive heart failure and chronic obstructive pulmonary disease. cc: Harsha Blake MD
[2019-02-11] MEDS: SYMBICORT 160/4.5 MICROGM INHALER INH SCH (08:10)
[2019-02-11] MEDS: PRILOSEC PO SCH (08:47)
[2019-02-11] MEDS: COZAAR PO SCH (08:47)
[2019-02-11] MEDS: LOVENOX SUBQ SCH (08:48)
[2019-02-11] MEDS: PREDNISONE PO SCH (08:48)
[2019-02-11] MEDS: KLOR-CON PO SCH (08:48)
[2019-02-11] MEDS: CULTURELLE PO SCH (08:48)
[2019-02-11] MEDS: ZYLOPRIM PO SCH (08:48)
--- NOTE | 2019-02-11 09:19 | PROGRESS NOTE ---
DATE: 02/11/2019 SUBJECTIVE: The patient continues to report feeling better. Denies any fever or chills. OBJECTIVE: Vital Signs: Temperature 97.4 degrees, heart rate 70, respiratory rate 18, blood pressure 103/57, O2 saturation 94% on 3 L nasal cannula. General: This is a chronically ill- appearing and obese, 83-year-old, female, lying in bed in no acute distress. Cardiovascular: S1, S2 heard. No murmurs, gallops, or rubs. Regular rate and rhythm. Respiratory: Minimal coarse breath sounds noted in both pulmonary warren, mostly noted in bases. The patient is not using any accessory muscles or having work of breathing. Abdomen: Soft, a little bit distended, but nontender to palpation. Bowel sounds present. No organomegaly. Extremities: No clubbing, cyanosis. Mild edema noted in both lower extremities, but better in comparing with previous days. Peripheral pulses present in both legs. Neurological: The patient is alert and oriented x3. Moves all 4 extremities. LABORATORY DATA: White cell count 6.7, hemoglobin 7.9, hematocrit 27.2, platelets 298,000. BMP normal, except creatinine 1.6. ASSESSMENT AND PLAN: 1. Acute on chronic hypoxemic respiratory failure secondary to left lower lobe pneumonia. Clinically, this patient continues to improve. For the last 2 days, she is reporting breathing better. Denies any fever or chills. Continues to require between 2 and 3 liters of oxygen by nasal cannula that is basically what she used at home. Currently, she is receiving Zyvox, day #6 of treatment, and cefepime, day #3 of treatment with 2 grams intravenously every 12 hours, but she was receiving 1 gram every 12 hours before. In any case, I have talked with Dr. Blake about her, and he thinks that pneumonia is almost resolved, as well as the knee infection, so I think at this point, she can be discharged on oral antibiotics. 2. Chronic kidney disease stage 2. Creatinine is still around baseline. Will continue to monitor BMP while she is here. 3. Diarrhea, resolved. 4. History of gout. We have stopped colchicine and probenecid because of renal function. She is not complaining of any pain at this point. Will continue with the same management. 5. Anxiety disorder. Will continue with Klonopin. 6. Iron-deficiency anemia. Hemoglobin is a little bit low today. If she reaches 7 or below, she may need to have 1 unit of blood transfused. 7. Physical deconditioning. At this point, the patient is doing better. We have consulted Physical Therapy and Occupational Therapy to see if this patient truly needs to go to rehab or if she can go home with home health. The patient agreed to go to rehab if needed. 8. Disposition. I think at this point, the patient is stable and she can be moved out of the CIC unit today. cc: Tay Hwang MD
[2019-02-11] MEDS: ALBUTEROL NEB INH PRN (10:59)
[2019-02-11 13:24] VITALS: BP 123/66
--- NOTE | 2019-02-12 14:34 | DISCHARGE SUMMARY ---
ADMISSION DATE: 01/31/2019 DISCHARGE DATE: 02/11/2019 ADMISSION DIAGNOSES: 1. Joint effusion, right knee. 2. Probable septic joint, right knee. 3. Leukocytosis. 4. Gout. 5. Hypertension. 6. Chronic anxiety. 7. Chronic depression. DISCHARGE DIAGNOSES: 1. Acute on chronic hypoxemic respiratory failure secondary to left lower lobe pneumonia. 2. Chronic kidney disease stage 2. 3. Diarrhea, resolved. 4. History of gout. 5. Anxiety disorder. 6. Iron deficiency anemia. 7. Physical deconditioning. 8. Right knee contusion with cellulitis and suspicion of prepatellar bursal infection but no clinical signs of septic joint, which resolved with antibiotics intravenously. CONSULTATIONS: 1. Byron Patel MD, for the right knee. 2. Harsha Blake MD, for the pneumonia. 3. Edmond Norman MD, for the respiratory failure. SURGERIES AND PROCEDURES: None. HOSPITAL COURSE: Santa Quintero is an 83-year-old female who presented to [facility] with complaints of right knee pain and swelling after a fall and difficulty walking. There was swelling. She had some leukocytosis with it. Orthopedic surgery was consulted, who diagnosed her right knee as a right knee contusion with cellulitis and suspicion of prepatellar bursal infection. She was initiated on antibiotics on admission. This improved the right knee. I guess at some point she was having diarrhea. C. difficile studies were sent and negative. At some point, she also developed pneumonia. By the , she was having trouble breathing. She was started on steroids, nebulizers, Lasix. A chest x-ray was performed. It showed some pneumonia of the left lower lobe in addition to pulmonary edema. She had a V/Q scan performed. It was negative. A CT showed left upper and lower lobe bronchopneumonia. She was changed to cefepime and Zyvox on the . At some point, she had iron deficiency anemia. Received 3 days of Venofer. She received Lasix for the pleural effusions. Pulmonary was consulted on the . She was seen by Dr. Norman and recommended her to have more ambulation and to continue her on the antibiotics due to her immunocompromised state secondary to continuous use of Humira, and for an outpatient sleep evaluation. Dr. Blake saw her on the . The only change he made was increasing the dose of the cefepime and he also continued with the Zyvox. Pulmonary arteriogram on the showed improving of the pneumonia. There was no PE. An EKG on the also showed atrial fibrillation with a slow ventricular response. She was discharged home with home health. She was breathing better. She went home with her 2 L of oxygen. She went home with oral antibiotics. DISCHARGE VITAL SIGNS: Temperature 99.0 degrees, heart rate 69, respiratory rate 18, blood pressure 123/66, O2 saturation 96% on 3 L nasal cannula. DISCHARGE LAB DATA: White blood cells 6000, hemoglobin 7, hematocrit 27, platelet count 298,000. Sodium 142, potassium 3.5, BUN is 18, creatinine is 1.6, glucose 116, calcium 9.0. PERTINENT IMAGING: On 01/31/2019, x-ray of the right knee, osteoarthritis and effusion. Lower extremity venous ultrasound of the right lower extremity, no DVT. On the 05 of February, chest x- ray, improved atelectasis versus pneumonia of the left lower lobe. Cardiomegaly and pulmonary edema. On the , V/Q scan, no pulmonary emboli. On the , chest x-ray, improved atelectasis and pneumonia. Still with cardiomegaly and pulmonary edema. On the , chest CT, bilateral pleural effusions, bibasilar atelectasis, left upper and lower lobe bronchopneumonia. On the , chest x-ray, worsening pleural effusions. On the , pulmonary arteriogram, no pulmonary emboli and it also showed improved pneumonia in the left lower lobe and lingula. It still showed bilateral pleural effusions and atelectasis. Then on the , had another chest x-ray, persistent cardiomegaly, pulmonary edema, pleural effusions consistent with congestive heart failure. EKG on the , atrial fibrillation with a slow ventricular response. Rate is 50. QTc was 381. DISCHARGE MEDICATIONS: 1. Singulair 10 mg p.o. nightly. 2. Albuterol inhaled every 4 hours p.r.n. 3. Clonazepam 0.25 mg p.o. nightly. 4. Humira. 5. Potassium chloride 10 mEq p.o. daily. 6. Lasix 20 mg p.o. daily. 7. Lexapro 10 mg p.o. daily. 8. Losartan potassium 100 mg p.o. daily. 9. Metoprolol succinate 50 mg p.o. daily. 10. Prednisone 5 mg p.o. daily. 11. Symbicort 160/4.5 two puffs inhaled daily. 12. Ceftin 500 mg p.o. every 12 hours. 13. Doxycycline 100 mg p.o. every 12 hours. 14. [place] 7.5 one tablet p.o. every 6 hours p.r.n. DISCHARGE ACTIVITY: As tolerated. DISCHARGE DIET: Regular. PHYSICIAN FOLLOWUP: Dr. Paola Crooks, Dr. Harsha Blake, Dr. Patricia Patel. DISCHARGE INSTRUCTIONS: Notify MD for fever of 101 or above, chest pain, shortness of breath, pain or swelling in your legs. You will need to follow with Dr. Blake in 1 week. [address] while taking pain medication. If your condition changes, contact physician and/or return to the emergency department. Changes may include, but are not limited to, shortness of breath, increased fatigue, excessive bleeding, unexplained weight loss or gain, unimaginable pain, signs or symptoms of infection. DISCHARGE DISPOSITION: Home with home health. Dictated by CLARICE Luu for Tay Hwang MD Addendum: Patient seen and examined by myself. Agree with CLARICE note. It reflects my assessment and plan. Patient is being discharged in stable condition. Will be seen by primary care doctor and Dr. Blake in 2 weeks. cc: CLARICE Luu MD [facility]
== END 2019-02-11 16:33 | disposition home health service (06) | DRG 602 ==
LOC: ED 14:47 → 4N 20:40 → SUATTDRO 20:40 → 3S 02-09 12:35 → 3N 02-11 14:39
PROVIDERS: ATTEND Internal Medicine

== ENCOUNTER 2019-02-16 19:42 | Inpatient (IN) ==
[2019-02-16] MEDS ORDERED: NS 1,000 ML IV PRN (19:58)
--- NOTE | 2019-02-16 20:35 | Diag Imaging Result Doc PS360 ---
EXAM: CT HEAD W/O CONTRAST HISTORY: stroke like symptoms TECHNIQUE: CT head without contrast COMPARISON: None. FINDINGS: No parenchymal hemorrhage. No epidural or subdural hematoma. No subarachnoid hemorrhage. Mild microvascular ischemic changes. No mass identified on this noncontrasted exam. No hydrocephalus. No sinus opacification. IMPRESSION: No hemorrhage. Mild microvascular ischemic changes. This exam was performed using automated exposure control, adjustment of mA or kV according to patient size, and/or use of iterative reconstruction technique. Electronically signed by Jay Laura 02/16/2019 8:32 PM
--- NOTE | 2019-02-16 20:39 | Diag Imaging Result Doc PS360 ---
EXAM: CHEST-PORTABLE HISTORY: stroke like symptoms TECHNIQUE: Portable chest COMPARISON: 02/11/2019 FINDINGS: The lungs are well expanded except for basilar atelectasis. The heart is mildly enlarged. The vessels are mildly distended. There are no infiltrates. Small effusions.. IMPRESSION: No significant interval change. Electronically signed by Jay Laura 02/16/2019 8:37 PM
[2019-02-16 20:46] LABS: BASO# 0.17 X1000 (0.0-0.2); BASO% 1.8 % (0.0-0.8); EOS# 0.38 X1000 (0.0-0.7); HEMATOCRIT 30.6 % (37.0-47.0); IMM GRAN# 0.27 X1000 (0.0-0.04); IMM GRAN% 2.8 % (0.0-0.5); LYMPH# 2.78 X1000 (1.2-3.4); LYMPH% 28.9 % (20.5-51.1); MCH 25.1 PG (27-31); MCHC 29.4 g/dL (33-37); MCV 85.2 FL (81-99); MONO% 12.5 % (1.7-9.3); MPV 10.7 FL (7.4-10.4); NEUT# 4.81 X1000 (1.4-6.5); PLT 277 X1000 (130-400); RBC 3.59 XMIL (4.2-5.4); RDW 19.6 % (11.5-14.5); WBC 9.61 X1000 (4.8-10.8)
[2019-02-16 20:53] LABS: INR 1.06; PROTIME 13.9 Seconds (11.0-16.0); PTT 25.4 Seconds (22.3-41.8)
[2019-02-16 21:03] LABS: ALB/GLOB RATIO 1.7; ALBUMIN 3.6 g/dL (3.5-5.0); CALCIUM 8.7 mg/dL (8.8-10.2); CREATININE 1.4 mg/dL (0.5-0.9); POTASSIUM 4.8 mmol/L (3.5-5.1); TOTAL BILIRUBIN 0.21 mg/dL (0.20-1.00); TOTAL PROTEIN 5.7 g/dL (6.3-8.3)
--- NOTE | 2019-02-16 21:48 | EKG Report ---
Test Performed on : 02/16/2019 7:55:57 PM Test Reason : AMS Blood Pressure : / mmHG Vent. Rate : 053 BPM Atrial Rate : 258 BPM P-R Int : 000 ms QRS Dur : 060 ms QT Int : 434 ms P-R-T Axes : 000 -03 203 degrees QTc Int : 407 ms Atrial fibrillation. with slow ventricular response. Moderate voltage criteria for LVH, may be normal variant Nonspecific ST and T wave abnormality Abnormal ECG When compared with ECG of 09-FEB-2019 13:02, No significant change was found Unconfirmed Result
[2019-02-16 21:59] LABS: BILIRUBIN URINE NEGATIVE (NEGATIVE); BLOOD URINE SMALL (NEGATIVE); COLOR YELLOW; GLUCOSE URINE NEGATIVE (NEGATIVE); KETONE URINE NEGATIVE (NEGATIVE); LEUKOCYTES URINE NEGATIVE (NEGATIVE); NITRITE URINE NEGATIVE (NEGATIVE); PROTEIN URINE 300 mg/dL (NEGATIVE); SP GRAVITY URINE 1.015; TURBIDITY URINE CLEAR (CLEAR); URINE SOURCE CLEAN CATCH; UROBILINOGEN URINE NORMAL (NORMAL)
[2019-02-16 22:00] LABS: UR EPITHELIAL CELLS <10 /HPF (<10); URINE BACTERIA NEGATIVE /HPF; URINE RBC <10 /HPF (<10); URINE WBC <10 /HPF (<10)
[2019-02-16 22:14] LABS: UR AMPHETAMINES QUAL NONE DETECTED (NONE DETECT); UR BARBITUATES QUAL NONE DETECTED (NONE DETECT); UR BENZODIAZEPIN QUAL NONE DETECTED (NONE DETECT); UR CANNABINOIDS QUAL NONE DETECTED (NONE DETECT); UR COCAINE QUAL NONE DETECTED (NONE DETECT); UR METHADONE QUAL NONE DETECTED (NONE DETECT); UR OPIATES QUAL NONE DETECTED (NONE DETECT); UR OXYCODONE QUAL NONE DETECTED (NONE DETECT); UR PCP QUAL NONE DETECTED (NONE DETECT)
--- NOTE | 2019-02-16 22:51 | PROVIDER DOCUMENTATION ---
This chart was entered by Leonie Johnson Scribe, acting as scribe for Ken Razo MD. HPI-Neurological Disorder - General Chief Complaint: Altered Mental Status Stated Complaint: ams Time Seen by Provider: 02/16/19 19:45 Source: patient Allergies/Adverse Reactions: Patient Allergies Allergy/AdvReac Type Severity Reaction Status Date / Time No Known Allergies Allergy Verified 01/31/19 18:42 Home Medications: Home Medication List Medication Instructions Recorded Confirmed Last Taken Type Adalimumab [Humira Pen] 1 dose SUBQ DIRECTED 01/31/19 02/16/19 Unknown History Albuterol [Albuterol Neb] 2.5 mg INH Q4HR PRN 01/31/19 02/16/19 Unknown History Budesonide/Formoterol Fumarate 2 puff INH DAILY 01/31/19 02/16/19 Unknown History [Symbicort 160-4.5 Mcg Inhaler] Clonazepam 0.25 mg PO HS 01/31/19 02/16/19 Unknown History Escitalopram Oxalate [Lexapro] 10 mg PO DAILY 01/31/19 02/16/19 Unknown History Furosemide [Lasix] 20 mg PO DAILY 01/31/19 02/16/19 Unknown History Losartan Potassium 100 mg PO DAILY 01/31/19 02/16/19 Unknown History Metoprolol Succinate 50 mg PO DAILY 01/31/19 02/16/19 Unknown History Montelukast [Singulair] 10 mg PO QHS 01/31/19 02/16/19 Unknown History Potassium Chloride [Klor-Con M10] 10 meq PO DAILY 01/31/19 02/16/19 Unknown History Prednisone 5 mg PO DAILY 01/31/19 02/16/19 Unknown History CefUROXIME [Ceftin] 500 mg PO Q12HR #28 tab 02/11/19 02/16/19 Unknown Rx Doxycycline 100 mg PO Q12H #14 tab 02/11/19 02/16/19 Unknown Rx Hydrocodone/APAP 7.5 mg/325 mg 1 tab PO Q6H PRN #15 tab 02/11/19 02/16/19 Unknown Rx [[place]-7.5] - History of Present Illness-Neuro Nature of Presenting Problem: Pt is 83/F presenting to ED after an episode of R sided facial drooping and what family described as "talking out of her head". SX started about 1 hr ago and lasted about 30 minutes. Pt arrived to ED via EMS. Hx of CHF and COPD. Pt denies any weaknesses or speech deficits. Onset/Duration: reports: 1 hour ago Timing: reports: gone now Context: reports: impaired speech, facial droop Any recent trauma/injury?: reports: none Cognitive Baseline: alert, oriented x3 Gait Baseline: walks without assistance Associated Symptoms: reports: denies symptoms Review of Systems - Adult - REVIEW OF SYSTEMS - ADULT Constitutional: reports: no symptoms reported. denies: chills, fever Eyes: reports: no symptoms reported Ears, Nose, Mouth & Throat: reports: no symptoms reported Cardiovascular: reports: no symptoms reported. denies: chest pain Respiratory: reports: no symptoms reported Gastrointestinal: reports: no symptoms reported. denies: abdominal pain, nausea, vomiting Genitourinary: reports: no symptoms reported Musculoskeletal: reports: no symptoms reported Integumentary: reports: no symptoms reported Neurological: reports: no symptoms reported. denies: dizziness/vertigo, headach e/migraines Psychiatric: reports: no symptoms reported Endocrine: reports: no symptoms reported Hematologic/Lymphatic: reports: no symptoms reported Allergic/Immunologic: reports: no symptoms reported All Other Systems: Reviewed and Negative Past History - Adult - PAST MEDICAL HISTORY-ADULT Review of Records: reports: Old Records Reviewed, Nursing Assessment Review, Me dications Reviewed, Social history reviewed & non-contributory. - SOCIAL HISTORY Substance Use: none/never Alcohol Use Frequency: never Living Situation: family Physical Exam- Neurological - Physical Exam-Neuro Initial Vital Signs Reviewed: Yes General Appearance: appears well, alert, no apparent distress Progress - PLAN OF CARE/RESULTS Progress/Plan/Lab Results: Vital Signs - 8 hr 02/16/19 20:02 Temperature 97.9 F Pulse Rate 55 L Respiratory Rate 18 O2 Sat by Pulse Oximetry 96 Laboratory Results - last 24 hr 02/16/19 02/16/19 02/16/19 19:49 20:34 20:34 WBC 9.61 RBC 3.59 L Hgb 9.0 L Hct 30.6 L MCV 85.2 MCH 25.1 L MCHC 29.4 L RDW Std Deviation 19.6 H Plt Count 277 MPV 10.7 H Immature Gran % (Auto) 2.8 H Neut % (Auto) 50.0 Lymph % (Auto) 28.9 [place] % (Auto) 12.5 H Eos % (Auto) 4.0 Baso % (Auto) 1.8 H Immature Gran # (Auto) 0.27 H Neut # (Auto) 4.81 Lymph # (Auto) 2.78 [place] # (Auto) 1.20 H Eos # (Auto) 0.38 Baso # (Auto) 0.17 Segmented Neutrophils Not Reportable PT INR PTT (Actin FS) Sodium 141 Potassium 4.8 Chloride 105 Carbon Dioxide 29 Anion Gap 7 BUN 27 H Creatinine 1.4 H Estimated GFR/1.73 m2 36 BUN/Creatinine Ratio 19 Glucose 105 H POC Glucose 113 H Calculated Osmolality 287 Calcium 8.7 L Total Bilirubin 0.21 AST 15 ALT 22 Alkaline Phosphatase 51 Troponin T Total Protein 5.7 L Albumin 3.6 Globulin 2.1 Albumin/Globulin Ratio 1.7 Urine Source Urine Color Urine Turbidity Urine pH Ur Specific [place] Urine Protein Ur Glucose (Stick) Ur Ketones (Stick) Urine Blood Urine Nitrite Urine Bilirubin Urobilinogen Dipstick Urine Leukocytes Urine WBC (Auto) Urine RBC (Auto) U Epithel Cells (Auto) Urine Bacteria (Auto) Urine Opiates Screen Ur Oxycodone Screen Ur Methadone, Qual Ur Barbiturates Screen Ur Phencyclidine Scrn Ur Amphetamines Screen U Benzodiazepines Scrn Urine Cocaine Screen U Cannabinoids Screen 02/16/19 02/16/19 02/16/19 20:34 20:34 21:50 WBC RBC Hgb Hct MCV MCH MCHC RDW Std Deviation Plt Count MPV Immature Gran % (Auto) Neut % (Auto) Lymph % (Auto) [place] % (Auto) Eos % (Auto) Baso % (Auto) Immature Gran # (Auto) Neut # (Auto) Lymph # (Auto) [place] # (Auto) Eos # (Auto) Baso # (Auto) Segmented Neutrophils PT 13.9 INR 1.06 PTT (Actin FS) 25.4 Sodium Potassium Chloride Carbon Dioxide Anion Gap BUN Creatinine Estimated GFR/1.73 m2 BUN/Creatinine Ratio Glucose POC Glucose Calculated Osmolality Calcium Total Bilirubin AST ALT Alkaline Phosphatase Troponin T < 0.010 Total Protein Albumin Globulin Albumin/Globulin Ratio Urine Source CLEAN CATCH Urine Color YELLOW Urine Turbidity CLEAR Urine pH 6.0 Ur Specific [place] 1.015 Urine Protein 300 A Ur Glucose (Stick) NEGATIVE Ur Ketones (Stick) NEGATIVE Urine Blood SMALL A Urine Nitrite NEGATIVE Urine Bilirubin NEGATIVE Urobilinogen Dipstick NORMAL Urine Leukocytes NEGATIVE Urine WBC (Auto) <10 Urine RBC (Auto) <10 U Epithel Cells (Auto) <10 Urine Bacteria (Auto) NEGATIVE Urine Opiates Screen Ur Oxycodone Screen Ur Methadone, Qual Ur Barbiturates Screen Ur Phencyclidine Scrn Ur Amphetamines Screen U Benzodiazepines Scrn Urine Cocaine Screen U Cannabinoids Screen 02/16/19 21:50 WBC RBC Hgb Hct MCV MCH MCHC RDW Std Deviation Plt Count MPV Immature Gran % (Auto) Neut % (Auto) Lymph % (Auto) [place] % (Auto) Eos % (Auto) Baso % (Auto) Immature Gran # (Auto) Neut # (Auto) Lymph # (Auto) [place] # (Auto) Eos # (Auto) Baso # (Auto) Segmented Neutrophils PT INR PTT (Actin FS) Sodium Potassium Chloride Carbon Dioxide Anion Gap BUN Creatinine Estimated GFR/1.73 m2 BUN/Creatinine Ratio Glucose POC Glucose Calculated Osmolality Calcium Total Bilirubin AST ALT Alkaline Phosphatase Troponin T Total Protein Albumin Globulin Albumin/Globulin Ratio Urine Source Urine Color Urine Turbidity Urine pH Ur Specific [place] Urine Protein Ur Glucose (Stick) Ur Ketones (Stick) Urine Blood Urine Nitrite Urine Bilirubin Urobilinogen Dipstick Urine Leukocytes Urine WBC (Auto) Urine RBC (Auto) U Epithel Cells (Auto) Urine Bacteria (Auto) Urine Opiates Screen NONE DETECTED Ur Oxycodone Screen NONE DETECTED Ur Methadone, Qual NONE DETECTED Ur Barbiturates Screen NONE DETECTED Ur Phencyclidine Scrn NONE DETECTED Ur Amphetamines Screen NONE DETECTED U Benzodiazepines Scrn NONE DETECTED Urine Cocaine Screen NONE DETECTED U Cannabinoids Screen NONE DETECTED Orders Category Date Time Status Cardiac Monitoring DIRECTED Care 02/16/19 19:59 Active Finger Stick Blood Sugar (ED) DIRECTED Care 02/16/19 19:59 Active Saline Loc NOW Care 02/16/19 19:59 Active CHEST-PORTABLE [RAD] Stat Exams 02/16/19 19:[address] HEAD W/O CONTRAST [CT] Stat Exams 02/16/19 19:59 Completed CBC WITH ELECTRONIC DIFF [HEME] Stat Lab 02/16/19 20:34 Completed COMPREHENSIVE METABOLIC PANEL [CHEM] Stat Lab 02/16/19 20:34 Completed PROTIME WITH INR [COAG] Stat Lab 02/16/19 20:34 Completed PTT [COAG] Stat Lab 08/17/19 20:34 Completed TROPONIN T Stat Lab 02/16/19 20:34 Completed URINALYSIS W/POSS RFLX CULT [URINALYSIS] Stat Lab 02/16/19 21:50 Completed URINE DRUG SCREEN Stat Lab 02/16/19 21:50 Completed 0.9% Sodium Chloride Inj [Ns] 1,000 ml Med 02/16/19 19:58 Active IV 125 mls/hr EKG [EKG] Stat Ther 02/16/19 19:59 Draft Result Diagrams: 02/16/19 20:34 02/16/19 20:34 Departure - Departure Date of Disposition Decision: 02/16/19 Time of Disposition Decision: 22:50 DIAGNOSIS: TIA (transient ischemic attack) Disposition: ADMITTED INPATIENT 09 Certified Medical Emergency: Emergent Condition: Stable Referrals and Follow-Ups: Paola Crooks [Primary Care Provider] - - Critical Care Note This patient required my direct & personal management of CC.: No Attestation - Physician/ MAR Attestation Patient care was provided by Advanced Practice Provider:: No The physician spent face to face time with patient:: Yes Advanced Practice Provider documentation review:: Supervising physician onsite and consulted in the evaluation and care of this patient. The physician did have a face to face encounter with the patient. - NIH Stroke Scale Level of Consciousness: 0-Alert This chart was documented by the indicated scribe, (Leonie Johnson, Scribe) and accurately reflects the services I performed and decisions made by me, Ken Razo MD, as attested by the provider's signature.
--- NOTE | 2019-02-17 00:41 | HISTORY AND PHYSICAL ---
PRIMARY CARE PHYSICIAN: Dr. Paola Crooks. CHIEF COMPLAINT: Left facial droop, weakness, slurred speech x1 day. HISTORY OF PRESENTING ILLNESS: This is an 83-year-old elderly female with a history of hypertension, depression, COPD, who had presented to emergency department with 1-day history of having left facial droop, weakness, and slurred speech. The patient states that she did not feel well and subsequently had come to the emergency department. In the ED, the patient was evaluated, and it was suspected possibly she had a TIA. Subsequently, she will require admission for further evaluation and management. At the time of my examination, patient denied any headache, fever, chills, chest pain, shortness of breath, hemoptysis, melena, weight changes. Just states that she feels weak. PAST MEDICAL HISTORY: Includes hypertension, depression, COPD. PAST SURGICAL HISTORY: Hysterectomy. ALLERGIES: No known drug allergies. CURRENT MEDICATIONS: She does not recall and nursing staff will reconcile. SOCIAL HISTORY: She is a former smoker. No history of alcohol or illicit drug use. FAMILY HISTORY: Positive for coronary disease in Mother and Father. REVIEW OF SYSTEMS: Fourteen-point review of system as listed in HPI. Other systems negative. PHYSICAL EXAMINATION: GENERAL: Cooperative, friendly female. She is resting more comfortably now. VITAL SIGNS: Temperature 97.9 degrees, pulse is 55, respiration 18, blood pressure 140/80. HEENT: Atraumatic, normocephalic. Extraocular movements intact. PERRLA. NECK: No masses. CHEST: Clear to auscultation. CARDIOVASCULAR: Regular rate and rhythm. ABDOMEN: Soft. Positive bowel sounds. EXTREMITIES: No edema. NEUROLOGIC: She is awake, alert, oriented x3. Strength 5/5 all extremities. Speech is intact. GENITOURINARY: No bladder distention. SKIN: Warm. LABORATORIES AND STUDIES: WBC 9.61, hemoglobin 9.1, hematocrit 30.6, platelets 227,000. Sodium 141, potassium 4.8, chloride 105, CO2 29, BUN 27, creatinine 1.4. Glucose 105. UA is nitrite negative. Her toxicology screen is negative. Head CT shows no hemorrhage. Chest x-ray no significant interval change. ASSESSMENT: An 83-year-old female with a history of hypertension, depression, chronic obstructive pulmonary disease, who presented to the emergency department with a 1-day history of having left facial droop, weakness, and slurred speech. She was evaluated in the emergency department and it was suspected possibly she had a transient ischemic attack. Subsequently, she will require admission for further management. 1. Transient ischemic attack. We will need to rule out cerebrovascular accident. 2. Chronic obstructive pulmonary disease. 3. Depression. PLAN: 1. We will admit patient to medical floor with telemetry. 2. Continue with stroke workup. Neurology will be consulted. 3. We will check an MRI of the brain with and without. 4. Check a carotid duplex. 5. Continue with DuoNebs p.r.n. 6. Restart all home medications. 7. Put patient on DVT prophylaxis with SCDs. 8. We will continue to follow and reassess, make further recommendation based on patient's clinical course. cc: Bird Pruitt MD
[2019-02-17] MEDS ORDERED: NORCO-7.5 PO PRN (01:46)
[2019-02-17] MEDS: DUONEB (A & A) INH PRN (07:55)
[2019-02-17 08:10] LABS: BASO# 0.13 X1000 (0.0-0.2); BASO% 1.4 % (0.0-0.8); EOS# 0.42 X1000 (0.0-0.7); EOS% 4.6 % (0.0-10.0); HEMATOCRIT 30.1 % (37.0-47.0); HEMOGLOBIN 8.8 g/dL (12.0-16.0); IMM GRAN# 0.34 X1000 (0.0-0.04); IMM GRAN% 3.7 % (0.0-0.5); LYMPH# 2.93 X1000 (1.2-3.4); LYMPH% 32.1 % (20.5-51.1); MCH 25.2 PG (27-31); MCHC 29.2 g/dL (33-37); MCV 86.2 FL (81-99); MONO# 0.97 X1000 (0.11-0.59); MONO% 10.6 % (1.7-9.3); MPV 10.9 FL (7.4-10.4); NEUT# 4.35 X1000 (1.4-6.5); NEUT% 47.6 % (42.2-75.2); PLT 255 X1000 (130-400); RBC 3.49 XMIL (4.2-5.4); RDW 19.9 % (11.5-14.5); WBC 9.14 X1000 (4.8-10.8)
[2019-02-17 08:23] LABS: CREATININE 1.3 mg/dL (0.5-0.9); POTASSIUM 4.3 mmol/L (3.5-5.1)
[2019-02-17] MEDS: PREDNISONE PO SCH (08:26)
[2019-02-17] MEDS: LASIX PO SCH (08:26)
[2019-02-17] MEDS: LEXAPRO PO SCH (08:26)
[2019-02-17] MEDS: DOXYCYCLINE PO SCH ×2 (08:26→20:47)
[2019-02-17] MEDS: TOPROL XL PO SCH (08:26)
[2019-02-17] MEDS: CEFTIN PO SCH ×2 (08:26→20:47)
[2019-02-17] MEDS: ASPIRIN PO SCH (08:27)
[2019-02-17] MEDS: COZAAR PO SCH (08:27)
[2019-02-17 08:35] LABS: CHOLESTEROL 162 mg/dL (0-200); HDL 50 mg/dL (45-65); LDL 94 mg/dL; TRIGLYCERIDES 91 mg/dL (35-135); VLDL 18 mg/dL
[2019-02-17] MEDS ORDERED: ZOFRAN IV PRN (11:53)
--- NOTE | 2019-02-17 12:57 | PROGRESS NOTE ---
DATE: 02/17/2019 SUBJECTIVE: Ms. Quintero was admitted early yesterday. She presented with left facial droop and weakness, slurred speech, she said for about [address] Paola Crooks is her doctor. An 83- year-old female with history of hypertension, depression, and COPD, presented to the emergency room with a 1-day history of left facial droop, weakness, and slurred speech. The patient states that she did not feel well, and subsequently came to the emergency room. In the emergency room, was evaluated and suspected possibly of having a TIA. Subsequently, she required admission for further evaluation and management. Today, she is sitting up on the side of the bed. No trouble with speech. No trouble swallowing. Requesting food. Says that she is hungry. She does wear oxygen at home. OBJECTIVE: Vital Signs: Temperature is afebrile at 98.2, pulse 82, respirations 16, blood pressure last two were 179/71 and 73/93. HEENT: Pupils are equal and round. Lungs: Clear in all lung warren. Cardiovascular: Regular rhythm and rate without murmur or S3. Abdomen: Soft. Skin: Warm and dry. Extremities: No pedal edema. IMAGING AND LABORATORY DATA: White count 9140, hematocrit 30, hemoglobin 8.8, with an MCV of 86. Sodium 143, potassium 4.3, chloride 103, BUN 25, creatinine 1.5. Urine drug screen is completely negative. Urinalysis unremarkable. Chest x-ray: No significant interval change. Lungs are well expanded, except for basilar atelectasis. Heart is mildly enlarged. Vessels are mildly distended. No infiltrates. CT scan without contrast: No acute pathology. ASSESSMENT AND PLAN: 1. It sounds like she had a transient ischemic attack, and it is resolved. She is swallowing well. Will advance her to a regular diet or a healthy heart diet. I think she has had carotid ultrasound done, but I do not know that she has had echocardiogram done yet, so we will make sure we get an echocardiogram. Follow her today, and possibly could be discharged tomorrow. She said she was recently taken off of her aspirin, so will probably start her back on her aspirin, and I think she is on 325 mg a day right now. 2. History of hypertension. Continue current medications. We are going to tolerate her blood pressures 150s, 160s, 170s at this point with a transient ischemic attack. cc: Sudeep Villarreal MD
[2019-02-17] MEDS ORDERED: KLONOPIN PO SCH (21:00)
[2019-02-17] MEDS ORDERED: SINGULAIR PO SCH (21:00)
[2019-02-18 07:24] VITALS: BP 130/52
[2019-02-18] MEDS: DUONEB (A & A) INH PRN ×2 (08:30→11:09)
--- NOTE | 2019-02-18 09:43 | Diag Imaging Result Doc PS360 ---
EXAM: MRI BRAIN W/WO CONTRAST 02/17/2019 HISTORY: stroke TECHNIQUE: T1 sagittal, axial and post gadolinium-enhanced axial with coronal reformation, T2, FLAIR, DWI axial and coronal gradient echo. COMMENT: There is an empty sella. No previous MRI studies are available for comparison. There is an air-fluid level in the left sphenoid sinus. There is some mucosal thickening in the frontal sinuses and the posterior right ethmoid sinus. There are scattered foci of increased T2-weighted signal intensity in the white matter of both hemispheres with some cortical hyperintensity present near the sylvian fissure in the anterior right parietal lobe. There is no evidence of bleed or abnormal extra-axial fluid collection. There is a small lacune in the external capsule posteriorly on the right. There is cortical restricted diffusion superior to the sylvian fissure on the right consistent with an acute or subacute infarction. No previous MRI studies are available for comparison. 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 Chronic ischemic changes. The findings were discussed with Dante Villarreal MD at 02/18/2019 9:40 AM. Electronically signed by Loyd Dallas 02/18/2019 9:41 AM
[2019-02-18] MEDS: COZAAR PO SCH (10:00)
[2019-02-18] MEDS: ASPIRIN PO SCH (10:00)
[2019-02-18] MEDS: CEFTIN PO SCH (10:00)
[2019-02-18] MEDS: LEXAPRO PO SCH (10:01)
[2019-02-18] MEDS: LASIX PO SCH (10:01)
[2019-02-18] MEDS: TOPROL XL PO SCH (10:01)
[2019-02-18] MEDS: DOXYCYCLINE PO SCH (10:01)
[2019-02-18] MEDS: PREDNISONE PO SCH (10:01)
--- NOTE | 2019-02-18 12:26 | CONSULTATION ---
DATE OF CONSULTATION: 02/18/2019 ADDENDUM: PRESENT ILLNESS: The patient has cellulitis in her leg. She also had a left upper lobe pneumonia. MEDICATIONS: The patient was sent home on a combination of doxycycline and Ceftin. PHYSICAL EXAMINATION: Vital Signs: Temperature is 98 degrees, pulse 54, respirations 17, blood pressure 130/52. General: This is an obese, ill-appearing, elderly female. She is in no acute distress. Head, Eyes, Ears, Nose, and Throat: She can hear my spoken words and see near objects. She does not have any white coating on her tongue. Neck: No meningismus. Lungs: Clear to auscultation. Cardiovascular: Heart rate was slow and it was irregular. Abdomen: Soft and nontender. Extremities: The patient has bilateral leg edema. The left leg which was erythematous now has a light pink color in small sizes on the leg. LABORATORY DATA: The patient's CBC shows a white count of 9140, hemoglobin 8.8, and platelet count 255,000. Creatinine is 1.3. GFR is 39. Urinalysis showed no white cells or bacteria. RADIOGRAPHIC STUDIES: The patient's chest x-ray shows a bibasilar atelectasis but no infiltrate. ASSESSMENT AND PLAN: The patient's pneumonia has resolved, as has her leg cellulitis. She will not need any more antibiotics. I told her that she should always elevate her legs any time that she is not standing or walking correction. She should elevate her legs. I do not think the patient needs any more antibiotics but I have encouraged her to always elevate her legs unless she is standing or walking. COMORBIDITIES: The patient is elderly. She is obese. She has congestive heart failure, chronic obstructive pulmonary disease, and chronic leg edema. cc: Harsha Blake MD
--- NOTE | 2019-02-18 13:15 | ECHO REPORT ---
ORDER DATE: 02/18/2019 INDICATION: TIA. FINDINGS: 1. Right atrium is mildly to moderately enlarged at 4.6 cm. 2. Mild tricuspid regurgitation. RV systolic pressure of 57. 3. Normal RV size and systolic function. 4. Trace pulmonic insufficiency. 5. Severe left atrial enlargement with a volume index of 56. 6. No mitral valve prolapse. Mild mitral regurgitation. There is moderate mitral annular calcification. 7. Normal LV size, end-diastolic dimension of 4.9. Normal wall thicknesses with a posterior and interventricular septal wall thickness of 1 cm each. Normal LV systolic function. Estimated EF is 65% to 70% with normal wall motion. 8. Aortic valve opens well. No evidence of stenosis or insufficiency. 9. Aorta appears normal in visualized segments. 10. No pericardial effusion seen. cc: MD Sudeep Fajardo MD
--- NOTE | 2019-02-18 13:52 | Carotid Study ---
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 COMPARISON STUDY: The comparison study is dated 03/12/2018. FINDINGS: There is mild scattered plaque in the right distal common carotid, carotid bulb, and internal carotid arteries without significant elevation of velocities or turbulent flow. On the left side, there is calcific irregular plaque of the distal common carotid, the bulb and the internal carotid artery. This does produce turbulent flow and elevated velocity. Percent stenosis 0 to 39% on the right, 60% to 79% on the left. This is unchanged compared to the prior study on 03/12/2010. The right side is not hemodynamically significant. The left side appears to be approaching hemodynamic significance. cc: MD Bird Balderas MD
--- NOTE | 2019-02-18 15:25 | CONSULTATION ---
DATE OF CONSULTATION: 02/18/2019 REASON FOR CONSULT: Stroke. HISTORY: This is an 83-year-old, right-handed female with history of hypertension who presented 2 days ago with stroke symptoms. History is from the patient's daughter at the bedside. The patient was in her usual state of health. They were sitting and talking that evening, when all of a sudden she began to have slurred speech as if her tongue were thick and twisted. She also had left-sided facial drooping. There was not extremity weakness or other neurologic symptoms. No headache. No loss of consciousness. No chest pain or shortness of breath. No dizziness. Symptoms lasted roughly 30 minutes to an hour before resolution. She has not had recurrent symptoms and is currently at baseline. There is no prior history of stroke. She was just discharged from the hospital about a week ago where she was here for some time after she fell onto her knee and suffered increasing pain and subsequent cellulitis with suspicion for prepatellar bursal infection. She also had pneumonia. At that time, she had EKGs consistent with atrial fibrillation. EKG this admission also showed atrial fibrillation. They report no knowledge of prior history of atrial fibrillation. The patient reports she was taking low-dose aspirin daily for approximately 3 years for uncertain reasons. This was recently discontinued by her mineral technologist. She also reports having difficulties with anemia. She reports having to have a blood transfusion within the last 2 months at another hospital. They say her primary care physician is considering EGD/colonoscopy. The patient does well without fall risk if she uses her walker. She has been staying with her daughter. PAST MEDICAL HISTORY: Includes hypertension, COPD, depression, atrial fibrillation on recent EKG. PAST SURGICAL HISTORY: Hysterectomy. SOCIAL HISTORY: She is a former smoker. No alcohol or illicits. Living with her daughter currently. She has 10 children. FAMILY HISTORY: Positive for coronary artery disease and hypertension. ALLERGIES: No known drug allergies listed. HOME MEDICATIONS: Reviewed in the chart. She had recently been taking prednisone, metoprolol, losartan, Lasix, escitalopram, clonazepam, Ceftin, doxycycline, and [place]. At some point, she may have been taking Humira. REVIEW OF SYSTEMS: Balance of 12 was conducted and is otherwise negative except that detailed in the HPI. PHYSICAL EXAMINATION: Vital Signs: Afebrile, blood pressure 180/64 on admission, currently 130/52, pulse 50s, respirations 17, 95% on 4 L nasal cannula. General: The patient is a supine in bed with eyes closed. Appears to be resting comfortably. She is on oxygen by nasal cannula. The daughter at bedside. She is easily waked, regards. She remains reasonably alert and attentive, fully oriented. Speech is fluent. No significant dysarthria. No language disturbance. Face symmetric with equal activation. Facial sensation reported intact. Pupils equal, round, and reactive. Gaze is conjugate. Extraocular movements are full. Visual warren intact to direct confrontational testing. She is a bit hard of hearing. Tongue is midline. Palate is difficult to visualize in its entirety. Full shoulder shrug. No pronator drift. Strength is preserved in the arms and legs as tested. Sensation reported symmetric to light touch and temperature in the arms and legs. [id number] intact. Rapid alternating movements intact. Reflexes 1+ at the biceps, trace at the wrists, absent ankle jerks. No clonus. Plantar response is silent bilaterally. I did not test her gait. DIAGNOSTIC STUDIES: Head CT noncontrast. Impression: No hemorrhage. Mild microvascular ischemic changes. MRI of the brain with and without contrast personally reviewed. There is a recent infarct in the anterior right parietal cortex. Normal white count, hemoglobin 8.8, hematocrit 31, normal platelets. Coagulation studies. Sodium of 143, BUN 25, creatinine 1.3. Triglycerides 91, cholesterol 162, LDL 94, HDL 50. ASSESSMENT AND PLAN: 1. 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 Transient dysarthria and left lower facial droop. 2. Hypertension. 3. Atrial fibrillation. 4. Anemia with report of recent blood transfusion. The patient has multiple risk factors and is at high risk for recurrent stroke. As such, she would benefit from anticoagulation in the setting of atrial fibrillation and other risk factors if there is no contraindication. Current stroke size is relatively small. Most recent blood pressure looked okay. As of the time of my consultation, the patient was already being discharged on a full-dose aspirin with the thought that anticoagulation could be considered in the future. She should have follow up scheduled with her mineral technologist. All questions were answered. cc: Cathi Howard MD [facility]
--- NOTE | 2019-02-18 16:19 | DISCHARGE SUMMARY ---
ADMISSION DATE: 02/16/2019 DISCHARGE DATE: 02/18/2019 HISTORY OF PRESENT ILLNESS: This is an 83-year-old patient of DR. Paola Xavier. She has a history of hypertension, depression, and COPD, presented to the emergency department with 30 minutes of I think duration left facial droop, weakness, slurred speech, did not feel well, and subsequently came to the emergency room. Evaluated. Suspected possible TIA and admitted. Her carotid ultrasound did not show any blockage. Symptoms resolved. She is able to swallow and requesting food. No trouble with speech difficulty. We obtained a brain MRI on 02/17/2019. Infarct to the anterior right parietal cortex appreciated; it was small. She had no neurologic residual or deficits. Echocardiogram with Doppler ordered. We did not see evidence of atrial fibrillation or mural thrombus. I put her back on aspirin. Apparently, her aspirin had been stopped about a month ago, so we put her back on aspirin. DISCHARGE MEDICATIONS: Aspirin 325 mg a day. Klonopin 0.25 mg at bedtime. She is on Ceftin 500 mg b.i.d. Lexapro 10 mg daily. Lasix 20 mg p.o. daily. She takes [place] 7.5 q.4-6 h. p.r.n. pain. Cozaar 100 mg a day. Toprol-XL 50 mg a day. Singulair 10 mg a day. She is on prednisone 5 mg a day. DIAGNOSTIC STUDIES: Her lab did show a normocytic anemia which is stable, hematocrit 30 and hemoglobin 9. Electrolytes unremarkable. She does have some mild chronic renal disease with creatinine about 1.3 to 1.4, which remains stable. SUMMARY: I will discharge her. Put her back on her aspirin. Follow up with her primary care. NOTE: DR. Harsha Blake was following up. She was on some doxocycline and ceftin and he followed up while she was in the hospital. cc: Sudeep Villarreal MD [facility]
--- NOTE | 2019-02-18 17:18 | DISCHARGE SUMMARY ---
ADMISSION DATE: 02/16/2019 DISCHARGE DATE: 02/18/2019 ADDENDUM REPORT NOTE: She did have more atrial fibrillation. It appears that she has chronic atrial fibrillation, and the question was whether to put her on full anticoagulation, but because she had a small CVA, we are going to put her back on the aspirin. She may need full coagulation later on. Her rate appears controlled, but in regards to whether she needs to be on Eliquis or Xarelto or Coumadin later on, we will postpone that for a while and keep her on the aspirin. She would benefit from anticoagulation in the setting of atrial fibrillation and other risk factors. The concern is that she has an anemia and recent blood transfusion outside of the facility, and so for now we will start her on aspirin and have her follow up with her primary care which is Dr. Paola Crooks. cc: Sudeep Villarreal MD
== END 2019-02-18 13:57 | disposition home or self-care (01) | DRG 64 ==
LOC: SUPCPDRO → ED 19:42 → SUATTDRO 23:50 → 3N 23:50
PROVIDERS: ATTEND Emergency Medicine

== ENCOUNTER 2019-04-08 20:46 | Inpatient (IN) ==
[2019-04-09 00:52] LABS: INR 1.02; PROTIME 13.6 Seconds (11.0-16.0)
[2019-04-09 00:53] LABS: BASO# 0.04 X1000 (0.0-0.2); BASO% 0.4 % (0.0-0.8); EOS# 0.24 X1000 (0.0-0.7); EOS% 2.3 % (0.0-10.0); HEMATOCRIT 35.4 % (37.0-47.0); HEMOGLOBIN 10.4 g/dL (12.0-16.0); IMM GRAN# 0.11 X1000 (0.0-0.04); IMM GRAN% 1.1 % (0.0-0.5); LYMPH# 2.28 X1000 (1.2-3.4); LYMPH% 22.1 % (20.5-51.1); MCH 26.1 PG (27-31); MCHC 29.4 g/dL (33-37); MCV 88.9 FL (81-99); MONO# 0.86 X1000 (0.11-0.59); MONO% 8.3 % (1.7-9.3); MPV 11.6 FL (7.4-10.4); NEUT# 6.81 X1000 (1.4-6.5); NEUT% 65.8 % (42.2-75.2); PLT 228 X1000 (130-400); RBC 3.98 XMIL (4.2-5.4); RDW 16.7 % (11.5-14.5); WBC 10.34 X1000 (4.8-10.8)
[2019-04-09 01:14] LABS: ALB/GLOB RATIO 1.2; ALBUMIN 2.9 g/dL (3.5-5.0); CALCIUM 8.7 mg/dL (8.8-10.2); CREATININE 1.1 mg/dL (0.5-0.9); POTASSIUM 3.7 mmol/L (3.5-5.1); TOTAL BILIRUBIN 0.31 mg/dL (0.20-1.00); TOTAL PROTEIN 5.3 g/dL (6.3-8.3)
[2019-04-09] MEDS ORDERED: NORCO-5 PO ONE (01:27)
[2019-04-09] MEDS ORDERED: APRESOLINE IV ONE (03:15)
--- NOTE | 2019-04-09 03:36 | EKG Report ---
Test Performed on : 04/09/2019 03:12:05 AM Test Reason : Bradycardia,Dyspnea Blood Pressure : / mmHG Vent. Rate : 047 BPM Atrial Rate : 060 BPM P-R Int : 000 ms QRS Dur : 072 ms QT Int : 444 ms P-R-T Axes : 000 017 223 degrees QTc Int : 392 ms Atrial fibrillation. with slow ventricular response. Moderate voltage criteria for LVH, may be normal variant ST & T wave abnormality, consider inferolateral ischemia Abnormal ECG When compared with ECG of 16-FEB-2019 19:55, (Unconfirmed) Inverted T waves have replaced nonspecific T wave abnormality in Inferior leads Confirmed by Ophelia HAMLIN, Chip Barreto ([id number]) on 04/09/2019 7:44:29 AM
[2019-04-09] MEDS ORDERED: ZOFRAN IV PRN (03:43)
[2019-04-09] MEDS ORDERED: TYLENOL PO PRN (03:46)
[2019-04-09] MEDS: MAXIPIME 2 GM in NS 100 ML IV SCH ×2 (04:03→15:41)
[2019-04-09] MEDS: ZYVOX 600 MG/D5W 600 MG/300 ML IVPB IV SCH ×2 (04:03→15:41)
[2019-04-09 04:10] LABS: HEMOGLOBIN A1C 5.3 % (4.8-6.0)
[2019-04-09] MEDS: KLONOPIN PO PRN (04:52)
[2019-04-09] MEDS: DUONEB (A & A) INH SCH ×4 (04:58→21:32)
[2019-04-09] MEDS: NORCO-5 PO PRN (05:40)
[2019-04-09] MEDS: LASIX IV SCH ×2 (05:41→18:01)
--- NOTE | 2019-04-09 06:27 | Diag Imaging Result Doc PS360 ---
CHEST-PORTABLE - 04/09/2019 INDICATION: Bilateral Crackles,Dyspnea COMPARISON: 02/16/2019 FINDINGS: Stable cardiomegaly and pulmonary vascular congestion. Stable mild interstitial pulmonary edema. Stable trace right pleural effusion. There is a moderate left pleural effusion, increased from prior. IMPRESSION: Cardiomegaly, pulmonary edema, pleural effusions. Electronically signed by Nishant Osborne 04/09/2019 6:25 AM
[2019-04-09] MEDS: ASPIRIN PO SCH (08:18)
[2019-04-09] MEDS: COZAAR PO SCH (08:18)
[2019-04-09] MEDS ORDERED: LASIX PO SCH (09:00)
[2019-04-09] MEDS ORDERED: XANAX PO ONE (09:37)
[2019-04-09 09:56] LABS: ALLEN TEST YES; BE 9.9 mmoll (-3.0-3.0); BLOOD TYPE ARTERIAL; HCO3-(ACT) 32.6 mmoll (20.0-26.0); METHB 0.7 % (0.0-1.5); MODALITY CANNULA; O2(CT) 14.8 mL/dL (15.0-23.0); O2HB 95.5 % (95.0-99.0); PCO2(98.6) 48 mmHg (35-45); PO2(98.6) 75 mmHg (60-100); SAMPLE BLOOD; SAO2 97.6 % (95.0-100.0); pH(98.6) 7.47 (7.35-7.45)
[2019-04-09] MEDS: LEXAPRO PO SCH (10:15)
[2019-04-09] MEDS: PREDNISONE PO SCH (10:15)
--- NOTE | 2019-04-09 10:39 | PROGRESS NOTE ---
DATE: 04/09/2019 SUBJECTIVE: This patient is resting in bed. She is complaining of generalized soreness. She is able to move all 4 extremities. She is alert and she is oriented. She is extremely anxious and I will try to give her a low dose of Xanax to see if she gets better. X-ray showed cardiomegaly, vascular congestion, pulmonary edema, and probably also some infiltrate on the right side. She has been placed on Lasix. She has been placed on antibiotics as well, which I will continue. She came in with an elevated blood pressure at 231, the highest, and the lowest 204. The most recent one 166/57. She has a recent echocardiogram on 02/18/2019 that showed an ejection fraction of 65 to 70 percent with a severe left atrial enlargement with a volume index of 56, normal right ventricular size and systolic function though. As per the patient, she came in because of shortness of breath and she has been having falls. OBJECTIVE: Vital signs: Temperature 98.8 degrees, pulse 67, respiratory rate 20, blood pressure 166/57, oxygen saturation 96 on 4 L of nasal cannula. HEENT: Head normocephalic. No trauma. PERRLA. Neck: Supple. She does have some JVD central trachea. Chest: Decreased breath sounds globally with coarse breath sounds at the bases. Some crackles and rhonchi at the bases as well. Abdomen: Soft, nontender, nondistended. No hepatosplenomegaly. Extremities: She does have some edema. No clubbing. No cyanosis. Some redness also at the level of the lower extremities. I believed she was treated for cellulitis on her previous admission. Neurological examination: The patient is alert. She is oriented. She is following commands. She is extremely anxious. She moves all 4 extremities. LABORATORY: WBC 10.3, hemoglobin 10.4, hematocrit 35.4, platelets 228. Sodium 146, potassium 3.7, chloride 102, bicarbonate 34. BUN 20, creatinine 1.1 glucose 145. Hemoglobin A1c 5.3. Calcium 8.7, magnesium 1.8, albumin 2.9. ASSESSMENT AND PLAN: 1. Pulmonary edema and possible right lower lobe pneumonia. We will continue with intravenous antibiotics and intravenous Lasix for now. She seems to be feeling a little bit better, but she is extremely anxious. I will give her a low dose of Xanax. She is on home oxygen due to her history of chronic obstructive pulmonary disease. 2. Chronic obstructive pulmonary disease with mild exacerbation. Continue breathing treatment and oxygen supplementation, antibiotics. 3. Right lower lobe pneumonia. Continue with antibiotics. 4. Chronic hypoxemic respiratory failure. Continue oxygen supplementation. Pulmonary Department has been consulted. 5. Anxiety and depression. I will give her a low dose of Xanax, and I will continue with her Lexapro as well. 6. 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 Continue with aspirin. She has not been on anticoagulation due to her history of multiple falls. 7. Atrial fibrillation, rate controlled. Continue to monitor. She has not been on anticoagulation probably because she has been having multiple falls. 8. Resuscitation status has been discussed. She decided to be do not resuscitate level 1. cc: David Preston MD
--- NOTE | 2019-04-09 12:57 | HISTORY AND PHYSICAL ---
PRIMARY CARE PROVIDER: Dr. Paola Crooks. DATE AND TIME: 04/08/2019 at 2330. CHIEF COMPLAINT: Fall from a standing position and dyspnea. HISTORY OF PRESENT ILLNESS: Ms. Quintero is an 83-year-old elderly female who was just recently admitted to our facility twice within the month of January. During these visits, she was evaluated for possible CVA. She was also noted to have pneumonia and small bilateral pleural effusions noted. The patient does have COPD with chronic hypoxic respiratory failure, and is on nasal cannula at 4 L at home. The patient states since being discharged, she has noticed some slightly worsening dyspnea. The patient states that yesterday prior to her arrival to the ER [facility] that she was walking into her house, and went to a step on the step with the wrong foot, and did fall backwards flat onto her back hitting her head. She also reports that she had a fall 2 days prior to that where she had fallen before hitting her face, and her left rib chest area. The patient denies feeling dizzy or lightheaded prior to the fall. She states that she lost her balance falling backwards. Upon evaluation in the ER at [facility] for her fall, they did perform chest x-ray, which did show bilateral pleural effusions. For further evaluation of this, they did perform a CT chest without contrast which did show large bilateral pleural effusions, increased in size since December of 2018 as well as a small to moderate volume consolidative process in both lungs with air bronchograms, nonspecific, but could be reflective of compressive atelectasis. The patient did have other x-ray studies of chest x-ray. Left rib detail CT chest without contrast. CT head without contrast and lumbar spine 3 views. There was noted to be some evidence of at least moderate congestive heart failure, bilateral pleural effusions, ill-defined opacities at both lung bases though there were no other acute abnormalities noted at this time. Upon questioning the patient, she is reporting a headache at this time. She is reporting being sore all over. She states she has been having some left-sided chest pain and left flank/rib pain, though she states this pain has been ongoing since her fall of 2 days ago, and that is mainly just sore from where she fell. She denies any chest pain. She is reporting a little dyspnea. She does report a cough with occasional clear sputum. She is denying any abdominal pain, nausea, vomiting, or diarrhea. She denies any dysuria. The patient does report some chronic swelling in her bilateral lower extremities, and is reporting generalized pain, body aches, and soreness since her fall yesterday, and today the initiation of pain, numbness or tingling in extremities. She is alert and oriented times 3. She has been transferred from [facility] to [facility] for further evaluation of her bilateral pleural effusions, possible pneumonia and CHF. I would like to add that unfortunately the patient was sent here without a copy of her radiology reports/ impressions or radiology images as well. We were able to get a copy of the radiologist study reports from [facility]. Though the patient's actual images unfortunately were not on her CD-ROM that was sent with her. These from what I understand can be pulled up from [facility] given that they are part of the [facility] system. I have been told these images are in the [facility]/ PACS System if needed so please contact the radiology department for assistance with this if needed. REVIEW OF SYSTEMS: A 14 point review of systems was conducted with the patient. All were negative except for pertinent positives as mentioned above in HPI. PAST MEDICAL HISTORY: 1. Hypertension. 2. COPD. 3. Chronic hypoxic respiratory failure on home oxygen at 4 L per nasal cannula. 4. Congestive heart failure. 5. Hypertension. 6. Chronic kidney disease. 7. History of atrial fibrillation. 8. Psoriasis. 9. Anxiety. 10. Depression. PAST SURGICAL HISTORY: Hysterectomy. SOCIAL HISTORY: The patient is a former smoker. She reports no alcohol or illicit drug use. She does live alone though her daughter has currently been staying with her since her recent discharge from the hospital. FAMILY HISTORY: Positive for coronary artery disease in her mother and father ALLERGIES: The patient has no known allergies. HOME MEDICATIONS: 1. Humira Pen 1 dose subcu as directed. 2. Albuterol nebulizer treatment 2.5 mg inhaled t.i.d. p.r.n. 3. Aspirin 325 mg p.o. daily. 4. Symbicort 160/4.5 mcg inhaler 2 puffs inhaled b.i.d. 5. Clonazepam 0.25 mg p.o. at bedtime. 6. Vitamin D2 81467 unit capsule 1 capsule p.o. as directed. 7. Lexapro 10 mg p.o. daily. 8. Lasix 40 mg p.o. daily. 9. Erie 7.5 mg 1 tablet p.o. q.6 hours p.r.n. 10. Losartan 100 mg p.o. daily. 11. Metoprolol succinate 50 mg p.o. daily. 12. Aleve 220 mg p.o. q.8 hours p.r.n. 13. Prednisone 2.5 mg p.o. daily. DIAGNOSTIC DATA: White blood cell count 27106, hemoglobin 10.4, hematocrit 35.4, and platelet count is 228,000. PT 13.6, INR 1.02, PTT is 26. Sodium 146, potassium 3.7, chloride 102, serum bicarb is 34, BUN 20, creatinine 1.1 with GFR 47, and glucose 145. Hemoglobin A1c is 5.3. Calcium 8.7. Magnesium 1.8. Liver function tests within normal limits. CK 28. Troponin [place] 0[place]02[place] [address]. TSH is 3.34. EKG shows atrial fibrillation with a slow ventricular response at a rate of 47, QTc of 392. Chest x-ray performed here this morning at our facility showed cardiomegaly, pulmonary edema and pleural effusions. This was per Radiology. The following studies were performed at [facility]. We do have the copy of the radiologist's report placed on the patient's chart, though unfortunately the CD- ROM that was sent did not have her radiology images loaded. If the images need to be reviewed from what I understand, this can be pulled up through the [facility]/ PACS system. Please contact Radiology for assistance with this. 1. PA and lateral chest, which did show at least moderate congestive heart failure, bilateral pleural effusions, ill-defined opacities at both lung bases are nonspecific but possibly reflective of compressive atelectasis induced by pleural effusions. Left rib detail showed [id number] pleural effusion with adjacent basilar lung consolidation/atelectasis. 2. Chest CT without contrast showed bilateral large pleural effusions, increased since December of 2018. There is small to moderate volume consolidative process at both lungs with air bronchograms, nonspecific, that could possibly be reflective of compressive atelectasis. 3. CT of the head without contrast showed no acute abnormalities. 4. Lumbar spine 3 views showed lower thoracic and lower lumbar disk degeneration changes. There was no fracture or spondylolisthesis. PHYSICAL EXAMINATION: VITAL SIGNS: Temperature 98.5 degrees, heart rate 67, respirations 20, blood pressure is elevated at 231/101, oxygen saturation is 95% on nasal cannula 4 L. The patient reports her pain is a 8/10 at this time. GENERAL: Ms. Cooper is a pleasant 83-year-old elderly female. She was resting on the ER stretcher. She is in no acute distress. She was awake, alert, and able to answer questions appropriately. HEENT: The patient does have ecchymosis noted to her forehead, the bridge of her nose and just under her left eye slightly. Pupils are equal, round, and reactive to light, were 3 mm bilaterally and brisk. Oral mucosa is moist. Oropharynx is clear. NECK: Supple. Trachea midline. The patient does report some generalized soreness, though she does not report any pain or tenderness upon palpation of C-spine. CARDIOVASCULAR: Patient has S1-S2 present. There are no murmurs, gallops, or rubs appreciated. She does have a bradycardic rate that is irregularly irregular. PULMONARY: Lung sounds were clear to auscultation in bilateral upper warren though in bilateral lower warren she did have some slight crackles noted. ABDOMEN: Soft and nontender. Does not appear to be distended though she does have a protuberant abdomen noted. Bowel sounds are present in all 4 quadrants, and were normoactive. EXTREMITIES: The patient does have swelling to bilateral lower extremities from just below her knee down. I would say this is at its worst 1+ pitting edema. Other than this, she does not have any other pain, numbness, tingling or swelling in extremities. Radial and pedal pulses are 2+ bilaterally. INTEGUMENTARY: The patient's skin is pink, warm, and dry. The patient does have ecchymosis noted to forehead, bridge of her nose, and left eye. On her arms, there is some ecchymoses/abrasions on her legs as well. NEUROLOGICAL: Patient is alert and oriented to person, place, time, and situation. She is able to move all extremities. There are no focal neurological deficits noted at this time. ASSESSMENT AND PLAN: 1. Bilateral pleural effusions. 2. Possible pneumonia. 3. Chronic hypoxic respiratory failure on continuous home O2 with nasal cannula at 4 L. 4. COPD. For numbers 1, 2, 3 and #4, we have placed the patient in the PVC unit for close monitoring. She will be on continuous cardiac telemetry and pulse oximetry. We will do frequent vital signs as well. We will continue with aggressive pulmonary toilet with scheduled nebulizer treatments, incentive spirometry, and encouragement of frequent turn cough, and deep breathing. We have placed a pulmonology consult as well. There was mention of possible consolidations on her imaging studies. Given this, we will go ahead and place her on antibiotics of Zyvox and cefepime as well. Blood cultures have been obtained. Sputum culture has been ordered. We will continue with her supplemental oxygen. We have placed a consult with pulmonology. We will await their evaluation and further recommendations for management. 5. History of congestive heart failure. The patient's chest x-ray did show pulmonary edema. It is possible that she may be in a slight exacerbation as well. We will go ahead and place her with Lasix 40 mg IV q.12 hours. We will do strict intake and output. We will closely monitor her cardiovascular status. We will do a series of cardiac enzymes. She had been on heart healthy diet. We will continue to monitor closely. 6. Hypertension. The patient's blood pressure was quite elevated upon arrival here at [facility] though the vital signs that were documented in the ER at [facility] were within normal limits. We did treat the patient's pain and do multiple manual blood pressures prior to treating her blood pressure here. We did give her IV hydralazine as well as she also got some Lasix. Also, since that time, her blood pressure has improved with the last reading of 166/57. 7. History of atrial fibrillation. The patient from what I can tell does take metoprolol for this. Though looking back at the patient's chart and at present, she has been bradycardic here. This is present on her vital signs and the EKGs that were done within the last few months. She has been maintaining pulse rate in the 50s dipping into the 40s at times. We will hold her metoprolol though this medication may need to be switched to something else or the dose may need to be adjusted given her persistent bradycardia. 8. Chronic kidney disease. This appears to be that the patient is at baseline. We will continue to monitor. We will avoid nephrotoxic medications and renally dose medicines as necessary. 9. Fall from standing position. As mentioned above, the patient states that she went to step up with the wrong foot, lost her balance and fell back, landing flat on her back, and reportedly hitting her head. She did have radiology studies as mentioned above. She had no acute abnormalities noted, though the patient states that she does fall a lot at home. She is at high risk for falls. For anticoagulation for history of atrial fibrillation, she is only on a full-dose aspirin at this time. There was mention in some of the notes during her last admission they were considering putting her on an anticoagulant, though the patient's reported history of increased recent falls would need to be considered prior to this. 10. Deep vein thrombosis prophylaxis will be provided with sequential compression devices. The patient has been placed on PVC. She will have strict intake and output, vital signs q.4 hours. She will be on a heart healthy diet. We will repeat a CBC and BMP in the morning. Further orders and recommendations pending hospital course, diagnostic studies, and physician evaluation. Dictated by CLARICE Montana for Bird Pruitt MD I have performed a face to face diagnostic evaluation. Labs/ Xrays- reviewed. Exam Chest- rhonchi, CV- regular. A/P- Pleural effusion, Pneumonia- Admit, check blood cultures, IV abx. Pulmonary consult. Dr. Edmond Hodge#: [id number] cc: Bird Pruitt MD MTD
[2019-04-09] MEDS ORDERED: SOLU-MEDROL IV ONE (15:52)
--- NOTE | 2019-04-09 16:09 | CONSULTATION ---
DATE OF CONSULTATION: 04/09/2019 REQUESTING PROVIDER: CLARICE Montana REASON FOR CONSULTATION: Bilateral pleural effusions, pneumonia. HISTORY OF PRESENT ILLNESS: This is an 83-year-old female with a medical history of COPD with chronic hypoxic respiratory failure, psoriasis, congestive heart failure, morbid obesity, hypertension, chronic kidney disease, atrial fibrillation, anxiety and depression. Her last admission to our facility was from 02/16/2019 to 02/18/2019 with possible transient ischemic attack, cellulitis and left upper lobe pneumonia. She presented to the [facility] yesterday after a fall on Monday night. CT chest without contrast from [facility] showed large bilateral pleural effusions, small to moderate volume consolidative process on the bilateral lung bases with a air bronchograms nonspecific but possibly reflective of compressive atelectasis. She also was found to have moderate congestive heart failure. She was transferred to our facility last night for further evaluation and management. The patient currently is lying on the bed with some anxiety, but no acute respiratory or cardiac distress noted. She is on a nasal cannula at 4 L which actually is her baseline oxygen requirement. Patient's son is at the bedside. The patient reported that she felt pretty well recently except she had 2 falls, one on Monday and one on Monday. On Monday she fell forward and hit her face on the ground and on Monday she fell backward hit her back and head on the ground. She reports some dizziness and every time when she changed her position she did feel like she lost her balance. She states she has severe left carotid stenosis. She has some chronic cough with clear sputum at times, occasional headache, chronic generalized weakness, chronic stable dyspnea on exertion and chronic bilateral lower extremity edema which is improved with foot elevation. She also has witnessed snoring and apnea. She received her CPAP last Monday, but hasn't used it yet. Recently she develops some generalized aching and chest pain, which per patient is likely secondary to fall. She has no fever, chills, nausea, vomiting, bowel habit change, or urination discomfort. PAST MEDICAL HISTORY: 1. Chronic obstructive pulmonary disease on Symbicort and DuoNeb. She uses DuoNeb 3 times a day. 2. Hypoxic respiratory failure. She is on oxygen at 4 L at home. 3. Psoriasis. On chronic Humira. 4. Congestive heart failure. 5. Morbid obesity. Current BMI 36.9. 6. Hypertension. 7. Chronic kidney disease. 8. Atrial fibrillation. 9. Anxiety and depression. 10. History of gout. 11. Severe left carotid stenosis. 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 13. Obstructive sleep apnea. Received CPAP last Monday, but haven't started using it yet. PAST SURGICAL HISTORY: Total abdominal hysterectomy with bilateral salpingo- oophorectomy, SOCIAL HISTORY: The patient is a former smoker. She had smoked over 40 years and quitted 25 years ago. She used to smoke less than 1 pack a day. She lives at home with her daughter currently. She has no alcohol or illicit drug use. FAMILY HISTORY: Positive for diabetes, heart attack and cancer. ALLERGIES: No known drug allergies. REVIEW OF SYSTEMS: A 10-point review of systems was conducted and the pertinent is listed within the HPI, otherwise noncontributory. PHYSICAL EXAMINATION: Vital Signs: Temperature 98.4, blood pressure 166/57, pulse 96, respiratory rate 15, oxygen saturation 96% on nasal cannula at 4 L. General: Morbidly obese, anxious, lying in bed with no acute respiratory or cardiac distress noted. HEENT: Normocephalic. Trachea midline. Mucosa pink and moist bruise around the forehead. Chest: Chest even and unlabored. Symmetrical excursion. Auscultation revealed diminished breathing sounds bibasilarly. Prolonged expiratory phase expiratory wheezing posteriorly bilaterally and only inspiratory crackles bilaterally. Cardiovascular: Regular rate and rhythm. Gastrointestinal: Obese, soft, nontender. Normoactive bowel sounds in all 4 quadrants. Extremities: Bilateral lower extremity pitting edema 1+. Some mild cyanosis on the right foot and cold on touch, no clubbing. Dorsalis pedis diminished bilaterally. Neurologic: Alert and oriented x3. Speech fluent. Follows commands. The patient did show some confusion with time and situation at times. LAB DATA: White blood cells 10.34, hemoglobin 10.4, hematocrit 35.4, platelet 228,000. Sodium 146, potassium 3.7, chloride 102, carbon dioxide 34, BUN 20, creatinine 1.1, and glucose 145. ProBNP 10,557. ABG, pH 7.47, pCO2 48, PO2 75, HC03 is 32.6, base excess 9.9, and oxyhemoglobin 95.5. IMAGING DATA: Chest x-ray this morning showed cardiomegaly, pulmonary vascular congestion, stable mild interstitial pulmonary edema. Stable chest. Right pleural effusion and worsened moderate left pleural effusion. ASSESSMENT: This is a 83-year-old female with a medical history of chronic obstructive pulmonary disease with chronic hypoxic respiratory failure, psoriasis, congestive heart failure, morbid obesity, hypertension, chronic kidney disease, atrial fibrillation, depression, anxiety, gout, severe left carotid stenosis and chronic immunosuppression secondary to Humira. She was transferred for from [facility] with large bilateral pleural effusion, moderate congestive heart failure and possible pneumonia. 1. Chronic obstructive pulmonary disease with mild exacerbation. The patient does have some mild wheezing bilaterally posteriorly. 2. Chronic hypoxic respiratory failure. The patient is currently on nasal cannula at 4 L which is her baseline oxygen requirement. 3. Possible pneumonia. 4. Acute on chronic congestive heart failure with bilateral pleural effusions and mild interstitial pulmonary edema. Chest CT from [facility] on 04/08/2019 showed large bilateral pleural effusions. She also had a Chest CT on 02/05/2019 in our facility showing bilateral pleural effusions, which apparently was not resolved when she was discharged on 02/11/2019. 5. Morbid obesity and obstructive sleep apnea. 6. Anxiety and depression. 7. Witnessed snoring and apnea. 8. DNR1. PLAN: 1. Continue supplemental oxygen. 2. Continue antibiotics, bronchodilators and diuretics. 3. Follow up with ABG, CBC, BMP, blood culture and sputum culture and chest x- ray. 4. Recommend patient to start using her CPAP during her hospital stay. 5. Encourage cough, deep breathing and incentive spirometer. 6. Further recommendations pending hospital course. Thank you for the courtesy of this consult. Dictated by CLARICE Lopez for Evans Perry MD cc: CLARICE Lopez MD [facility]
[2019-04-09 18:19] LABS: CALCIUM 8.6 mg/dL (8.8-10.2); CREATININE 1.4 mg/dL (0.5-0.9); POTASSIUM 3.3 mmol/L (3.5-5.1)
[2019-04-10] MEDS: DUONEB (A & A) INH SCH ×4 (03:31→21:17)
[2019-04-10] MEDS: MAXIPIME 2 GM in NS 100 ML IV SCH ×2 (04:17→16:50)
[2019-04-10] MEDS: ZYVOX 600 MG/D5W 600 MG/300 ML IVPB IV SCH ×2 (04:17→16:50)
[2019-04-10] MEDS: LASIX IV SCH ×2 (04:17→16:50)
[2019-04-10 04:44] LABS: ALLEN TEST YES; BLOOD TYPE ARTERIAL; HCO3-(ACT) 32.7 mmoll (20.0-26.0); METHB 0.5 % (0.0-1.5); O2(CT) 15.1 mL/dL (15.0-23.0); O2HB 96.6 % (95.0-99.0); PCO2(98.6) 44 mmHg (35-45); PO2(98.6) 90 mmHg (60-100); SAMPLE BLOOD; SAO2 98.3 % (95.0-100.0)
[2019-04-10 04:45] LABS: MODALITY CANNULA
[2019-04-10 05:58] LABS: BASO# 0.01 X1000 (0.0-0.2); BASO% 0.1 % (0.0-0.8); HEMATOCRIT 34.3 % (37.0-47.0); HEMOGLOBIN 10.4 g/dL (12.0-16.0); IMM GRAN# 0.08 X1000 (0.0-0.04); IMM GRAN% 0.8 % (0.0-0.5); LYMPH# 0.62 X1000 (1.2-3.4); LYMPH% 6.4 % (20.5-51.1); MCH 26.3 PG (27-31); MCHC 30.3 g/dL (33-37); MCV 86.8 FL (81-99); MONO# 0.29 X1000 (0.11-0.59); MPV 11.3 FL (7.4-10.4); NEUT# 8.67 X1000 (1.4-6.5); NEUT% 89.7 % (42.2-75.2); PLT 219 X1000 (130-400); RBC 3.95 XMIL (4.2-5.4); RDW 16.8 % (11.5-14.5); WBC 9.67 X1000 (4.8-10.8)
[2019-04-10 06:17] LABS: CALCIUM 8.6 mg/dL (8.8-10.2); CREATININE 1.4 mg/dL (0.5-0.9)
--- NOTE | 2019-04-10 06:51 | Diag Imaging Result Doc PS360 ---
CHEST-PORTABLE - 04/10/2019 INDICATION: dyspnea COMPARISON: 04/09/2019 FINDINGS: Stable cardiomegaly and significant pulmonary vascular congestion. Stable bibasilar opacifications most likely pleural effusions. No new infiltrates. IMPRESSION: No change from prior. Electronically signed by Nishant Osborne 04/10/2019 6:49 AM
[2019-04-10] MEDS: ASPIRIN PO SCH (08:19)
[2019-04-10] MEDS: LEXAPRO PO SCH (08:19)
[2019-04-10] MEDS: PREDNISONE PO SCH (08:19)
[2019-04-10] MEDS: COZAAR PO SCH (08:19)
--- NOTE | 2019-04-10 09:03 | PROGRESS NOTE ---
DATE: 04/10/2019 SUBJECTIVE: The patient is resting in bed. She feels a little bit better compared with yesterday. She is alert. She is oriented. She is still anxious. I will continue with Xanax, which seems to be helping this patient. X-ray did not show too much changes compared with yesterday. Will continue with the same management. OBJECTIVE: Vital Signs: Temperature 98.3 degrees, pulse 77, respiratory rate 19, blood pressure 154/70, oxygen saturation 96 on 4 L of nasal cannula. HEENT: Head normocephalic. No trauma. PERRLA. Neck: Supple. No JVD. No masses. Central trachea. Chest: Decreased breath sounds globally with coarse breath sounds. Some crackles and rhonchi mostly at the bases. Abdomen: Soft, nontender, nondistended. No hepatosplenomegaly. Extremities: She does have some edema. No clubbing. No cyanosis. Some redness also at the level of the lower extremities. I believe she was treated for cellulitis on her previous admission. Neurological: The patient is alert. She is oriented. She is following commands. She is anxious. She moves all 4 extremities. LABORATORY DATA: WBC 9.6, hemoglobin 10.4, hematocrit 34.3, platelets 219,000. Sodium 144, potassium 4, chloride 97, bicarbonate 33, BUN 20, creatinine 1.4, glucose 262, calcium 8.6. Magnesium 1.6. ASSESSMENT AND PLAN: 1. Possible pulmonary edema and right lower lobe pneumonia. Will continue with intravenous antibiotics and intravenous Lasix for now. She seems to be feeling a little bit better today. She is still extremely anxious. She will receive a low dose of Xanax, which helped yesterday. Continue with oxygen supplementation. She does have a history of chronic obstructive pulmonary disease as well. 2. Chronic obstructive pulmonary disease with mild exacerbation. She seems to be better. Continue with the same management. She is on oxygen and antibiotics. 3. Chronic hypoxemic respiratory failure, on home oxygen. Continue with the same management. Pulmonary Department on board. 4. Right lower lobe pneumonia. Continue with antibiotics. 5. Anxiety and depression. I will add a low dose of Xanax as needed on a daily basis. Continue with her Lexapro as well. 6. 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 Continue with aspirin. She has not been on anticoagulation, likely due her history of multiple falls. 7. Atrial fibrillation, rate controlled. Continue to monitor. She has not been on anticoagulation probably because she has been having multiple falls. Actually, she has some lesions on her face due to recent fall. 8. DO NOT RESUSCITATE status. This patient is DO NOT RESUSCITATE level 1. 9. Chronic kidney disease. Will continue to monitor. This is her baseline. cc: David Preston MD
[2019-04-11] MEDS: DUONEB (A & A) INH SCH ×3 (03:08→15:25)
[2019-04-11] MEDS: LASIX IV SCH ×2 (05:18→17:34)
[2019-04-11] MEDS: ZYVOX 600 MG/D5W 600 MG/300 ML IVPB IV SCH ×2 (05:18→17:34)
[2019-04-11] MEDS: MAXIPIME 2 GM in NS 100 ML IV SCH ×2 (05:19→17:34)
[2019-04-11 05:28] LABS: ALLEN TEST YES; BE 15.7 mmoll (-3.0-3.0); BLOOD TYPE ARTERIAL; HCO3-(ACT) 37.2 mmoll (20.0-26.0); METHB 1.1 % (0.0-1.5); O2(CT) 14.8 mL/dL (15.0-23.0); O2HB 96.8 % (95.0-99.0); PCO2(98.6) 34 mmHg (35-45); PO2(98.6) 130 mmHg (60-100); SAMPLE BLOOD; SAO2 99.1 % (95.0-100.0); THB 10.7 g/dL (11.5-17.4)
[2019-04-11 05:30] LABS: MODALITY BI PAP
[2019-04-11 05:32] LABS: pH(98.6) 7.65 (7.35-7.45)
[2019-04-11 06:36] LABS: BASO# 0.04 X1000 (0.0-0.2); BASO% 0.3 % (0.0-0.8); EOS# 0.23 X1000 (0.0-0.7); HEMATOCRIT 33.2 % (37.0-47.0); IMM GRAN# 0.05 X1000 (0.0-0.04); IMM GRAN% 0.4 % (0.0-0.5); LYMPH# 1.95 X1000 (1.2-3.4); LYMPH% 16.9 % (20.5-51.1); MCHC 30.1 g/dL (33-37); MCV 86.5 FL (81-99); MONO# 1.07 X1000 (0.11-0.59); MONO% 9.3 % (1.7-9.3); MPV 11.6 FL (7.4-10.4); NEUT# 8.19 X1000 (1.4-6.5); NEUT% 71.1 % (42.2-75.2); PLT 224 X1000 (130-400); RBC 3.84 XMIL (4.2-5.4); RDW 17.5 % (11.5-14.5); WBC 11.53 X1000 (4.8-10.8)
[2019-04-11 06:51] LABS: CALCIUM 8.9 mg/dL (8.8-10.2); CREATININE 1.5 mg/dL (0.5-0.9)
--- NOTE | 2019-04-11 07:32 | Diag Imaging Result Doc PS360 ---
EXAM: CHEST-PORTABLE INDICATION: dyspnea TECHNIQUE: One view COMPARISON: 04/10/2019 FINDINGS: Bilateral pleural effusions are noted. The left pleural effusion may be slightly smaller but this is more likely due to positioning. The right effusion is approximately stable. Pulmonary venous congestion is stable. No new consolidation is identified. Cardiac silhouette is stable. IMPRESSION: Possible slight decrease in left pleural effusion. Stable chest, otherwise. Electronically signed by Sohail Smith 04/11/2019 7:30 AM
[2019-04-11] MEDS ORDERED: KLOR-CON PO ONE (08:10)
[2019-04-11] MEDS: ASPIRIN PO SCH (08:27)
[2019-04-11] MEDS: COZAAR PO SCH ×2 (08:28→20:22)
[2019-04-11] MEDS: LEXAPRO PO SCH (08:28)
[2019-04-11] MEDS: PREDNISONE PO SCH (08:28)
--- NOTE | 2019-04-11 12:29 | EKG Report ---
Test Performed on : 04/11/2019 12:22:17 PM Test Reason : afib/CHF Blood Pressure : / mmHG Vent. Rate : 083 BPM Atrial Rate : 094 BPM P-R Int : 000 ms QRS Dur : 066 ms QT Int : 372 ms P-R-T Axes : 000 007 206 degrees QTc Int : 437 ms Atrial fibrillation. Voltage criteria for left ventricular hypertrophy ST & T wave abnormality, consider inferolateral ischemia Abnormal ECG When compared with ECG of 09-APR-2019 03:12, Vent. rate has increased BY 36 BPM Confirmed by Ophelia HAMLIN, Chip Barreto ([id number]) on 04/11/2019 7:43:46 PM
--- NOTE | 2019-04-11 15:57 | PROGRESS NOTE ---
DATE: 04/11/2019 SUBJECTIVE: The patient is sitting up in bed. She complains of shortness of breath with minimal exertion. She is currently on a Venturi mask. OBJECTIVE: Vital Signs: Temperature 98.4 degrees, blood pressure 110/60, heart rate 94, respirations 18, O2 saturation 96% on a Venturi mask. Intake 800; output 1.1 L. General: This is a chronically ill-appearing elderly female, sitting up in bed in no acute distress. Heart: S1, S2 normal. Tachycardic. Lungs: Coarse breath sounds bilaterally. Abdomen: Positive bowel sounds. Soft, nontender, nondistended. Extremities: 1+ edema bilaterally. Neurologic: The patient is alert and oriented x3. LABS: White blood cell count 11, hemoglobin 10, hematocrit 33, platelets 224. Sodium 144, potassium 3, chloride 97, CO2 33. BUN 21, creatinine 1.5 glucose 114. X-RAYS: Chest x-ray shows a slight decrease in the left pleural effusion. Pulmonary venous congestion. ASSESSMENT AND PLAN: 1. Acute on chronic hypoxemic respiratory failure. Multifactorial. The patient has pulmonary edema plus pneumonia and chronic obstructive pulmonary disease exacerbation. 2. Pneumonia. Continue with antibiotic therapy, bronchodilator therapy and supplemental oxygen. 3. Chronic obstructive pulmonary disease exacerbation. Continue with bronchodilator therapy. 4. Acute diastolic congestive heart failure exacerbation. The patient is currently on diuretic therapy. We will continue to monitor the patient's response. We will also consult with the pluck trimmer. 5. Atrial fibrillation. Will await further recs from the pluck trimmer. 6. Anxiety disorder. Continue on Xanax as needed. 7. History of ischemic stroke. Continue on aspirin. 8. Hypertension. Continue on the current antihypertensive regimen. 9. Chronic kidney disease stage III. Stable. 10. Hypokalemia. We will replace the patient's potassium. 11. Severe protein calorie malnutrition. We will add Boost to the patient's diet. 12. Deep vein thrombosis prophylaxis. I will start the patient on heparin. 13. Disposition: The patient is currently a do not resuscitate level 1. cc: Vesta Johnson MD [facility]
--- NOTE | 2019-04-11 18:27 | CARDIOLOGY CONSULTATION ---
DATE: 04/11/2019 COMPLAINT: Shortness of breath, irregular heartbeat. REQUESTING SERVICE: Hospitalist. PRIMARY LOFT WORKER HEAD: Josué Gallardo MD PRIMARY PHYSICIAN: Joes Crooks MD HISTORY: Ms. Moreno is an 83-year-old female who presented to the hospital for admission on 04/09/2019 after suffering a fall at home, falling backwards. She apparently was getting back into the house with a walker and her legs gave way and she just fell on her back. In the ER, they did a chest x-ray that shows cardiomegaly with pleural effusion and pulmonary edema. They noted on the EKG the presence of atrial fibrillation with diffuse repolarization abnormality. Blood work showed a proBNP level of 10,557 pg/mL and today it has risen up to 16,183. Her potassium level was initially 3.3, went up to 4.0, then down to 3.0. Creatinine has gone up from 1.1 to 1.5. The primary service was concerned about progressive respiratory failure. Her blood gases today showed a pH of 7.65, pO2 130, pCO2 34 on a BiPAP system. Hemoglobin 10 g. The patient has been feeling short of breath and somewhat worse lately. Patient has been admitted to the hospital recently from February 16 through February 18 and before that from January 31 through February 11. During February 11 admission, they described the presence of acute on chronic respiratory failure secondary to left lower lobe pneumonia, chronic kidney disease stage 2, diarrhea, gout, and physical deconditioning. Then on the most recent admission, the patient on February 16 suffered a stroke. Brain MRI revealed evidence of infarct in the anterior right parietal cortex. The patient has been very weak, shaky, and an increasing tendency to fall lately. PAST HISTORY: Positive for the recent finding of atrial fibrillation. She went to see Dr. Gallardo on January 24 at the office. They acknowledged atrial fibrillation is a new diagnosis. Prior to that I believe she had been admitted to [facility] with pneumonia, possibly multifocal. She has history of COPD and has been on oxygen. She has history of hypertension, diabetes mellitus type 2, chronic kidney disease, anemia, chronic back pain, anxiety and increasing physical deconditioning. Patient has history of Psoriasis and is getting Humira twice monthly. SURGICAL HISTORY: She had hysterectomy. SOCIAL HISTORY: She had a total of 10 children. She is a , retired. She lives by herself, however, her son is 5 minutes away from her. She lives in the [place] area. Not a smoker, currently not a drinker. HOME MEDICATIONS: According to the hospital records are as follows: She is on Humira Pen 1 dose as directed, albuterol 3 times a day, aspirin 325 daily, budesonide formoterol 2 puffs twice a day, clonazepam 0.25 mg at bedtime, vitamin D2 as directed, Lexapro 10 mg daily, furosemide 40 mg daily, hydrocodone APAP every 6 hours, losartan 100 mg daily, metoprolol 50 mg daily, prednisone 2.5 mg daily, Naprosyn 220 every 8 hours.Humira injection q 2 weeks. ALLERGIES: She does not have any allergies. REVIEW OF SYSTEMS: She has become increasingly weaker and with a great tendency to fall. FAMILY HISTORY: Mother had IN and father had also IN. PHYSICAL EXAMINATION: Vital signs: Blood pressure 110/60, pulse 94, temperature 98.4 degrees, respirations 18. General: Patient is elderly, frail, tremulous, hard of hearing. HEENT: Unremarkable. Chest: Diffusely diminished breath sounds at the bases with some prolonged expiratory phase. Heart: Sounds are irregularly irregular without gallop or murmur. Abdomen: Obese, nontender. Extremities: Showed palpable pulses. No peripheral edema. Neurological: Follows commands. Moves 4 extremities. BLOOD WORK: Hemoglobin 10 g, hematocrit 33.2. IMPRESSION: 1. Patient who presents after suffering a fall. She appears to be physically deconditioned. Very weak. 2. Dyspnea. This is multifactorial. She has bilateral pleural effusions. She has chronic diastolic heart failure, possibly recent bout of pneumonia. 3. Her inflammatory markers have been ordered today.D- dimer elevated 4. History of diabetes. 5. History of hypertension. 6. Obesity, body mass index is 36.1. 7. Hypokalemia. 8. Recent stroke right anterior parietal cortex.(January 2019). 9. History of Psoriasis on therapy with Humira. RECOMMENDATION: 1. At this time, I am going to add diltiazem to control her heart rate better. Her heart rate according to the table attendant has been running in the low 100s. I will add spironolactone to try to deal with her chronic diastolic heart failure. 2. We will also make her losartan twice a day. We will switch from albuterol to Xopenex and see if that helps to minimize her tremors. 3. Her overall prognosis is guarded because of her limited mobility. 4. We have requested an ultrasound of the lower extremities because of elevated D-dimer to exclude thrombus in the legs. 5. We will review a limited echocardiogram that we have ordered with contrast. 6. Further advice will be forthcoming. Thank you for the opportunity to participate in her evaluation. cc: John Moreira MD MTD
[2019-04-11] MEDS: ALDACTONE PO SCH (20:21)
[2019-04-11] MEDS: CARDIZEM PO SCH (20:22)
[2019-04-11] MEDS: HEPARIN SUBQ SCH (20:22)
[2019-04-11] MEDS: XOPENEX NEB INH SCH (21:21)
--- NOTE | 2019-04-11 21:47 | ECHO REPORT ---
ORDER DATE: 04/11/2019 SUMMARY: 1. Limited 2 dimensional study performed to assess left ventricular function and evaluate for pericardial effusion. Study is technically difficult due to limited acoustic window quality. Intravenous echo contrast agent Optison was utilized to enhance endocardial definition. 2. Aortic valve is trileaflet and opens normally on 2-dimensional images. Mild mitral annular calcification is demonstrated. Tricuspid valve was without evidence of structural abnormality while pulmonic valve is not well demonstrated. The aortic root is normal in size. 3. Mild to moderate concentric left hypertrophy is demonstrated. Estimated left ejection fraction appears to be at least 70%. No regional wall motion abnormalities are evident. Left atrium is moderately enlarged. Right atrium and right ventricle are grossly normal in size. 4. No pericardial effusion. 5. Appearance of inferior vena cava suggests normal central venous pressure. cc: MD Anahy Tompkins PA
[2019-04-12] MEDS: CARDIZEM PO SCH ×5 (01:49→22:07)
[2019-04-12] MEDS: XOPENEX NEB INH SCH ×4 (03:38→21:00)
[2019-04-12] MEDS: NS NEB INH SCH ×2 (03:39→21:00)
[2019-04-12] MEDS: MAXIPIME 2 GM in NS 100 ML IV SCH ×3 (04:13→16:56)
[2019-04-12] MEDS: HEPARIN SUBQ SCH ×3 (04:13→20:40)
[2019-04-12] MEDS: LASIX IV SCH ×3 (04:13→16:56)
[2019-04-12] MEDS: ZYVOX 600 MG/D5W 600 MG/300 ML IVPB IV SCH ×2 (04:14→16:56)
[2019-04-12 06:02] LABS: BASO# 0.07 X1000 (0.0-0.2); BASO% 0.6 % (0.0-0.8); EOS# 0.48 X1000 (0.0-0.7); EOS% 3.8 % (0.0-10.0); HEMATOCRIT 36.4 % (37.0-47.0); HEMOGLOBIN 10.8 g/dL (12.0-16.0); IMM GRAN# 0.08 X1000 (0.0-0.04); IMM GRAN% 0.6 % (0.0-0.5); LYMPH# 2.43 X1000 (1.2-3.4); LYMPH% 19.2 % (20.5-51.1); MCHC 29.7 g/dL (33-37); MCV 87.5 FL (81-99); MONO# 1.21 X1000 (0.11-0.59); MONO% 9.6 % (1.7-9.3); MPV 11.9 FL (7.4-10.4); NEUT# 8.36 X1000 (1.4-6.5); NEUT% 66.2 % (42.2-75.2); PLT 254 X1000 (130-400); RBC 4.16 XMIL (4.2-5.4); WBC 12.63 X1000 (4.8-10.8)
[2019-04-12 06:25] LABS: CALCIUM 8.9 mg/dL (8.8-10.2); CREATININE 1.6 mg/dL (0.5-0.9); POTASSIUM 3.8 mmol/L (3.5-5.1)
--- NOTE | 2019-04-12 06:30 | Diag Imaging Result Doc PS360 ---
EXAM: CHEST-PORTABLE HISTORY: pulmonary edema TECHNIQUE: Chest single view COMPARISON: 04/11/2019 FINDINGS: The lungs are well expanded. The heart remains enlarged. Mild pulmonary edema. There are small pleural effusions with basilar atelectasis. IMPRESSION: Stable chest Electronically signed by Jay Laura 04/12/2019 6:28 AM
[2019-04-12] MEDS: COZAAR PO SCH ×2 (09:01→20:40)
[2019-04-12] MEDS: ALDACTONE PO SCH ×2 (09:01→20:40)
[2019-04-12] MEDS: LEXAPRO PO SCH (09:01)
[2019-04-12] MEDS: ASPIRIN PO SCH (09:01)
[2019-04-12] MEDS: PREDNISONE PO SCH (09:02)
[2019-04-12] MEDS: XANAX PO PRN (09:09)
[2019-04-12] MEDS ORDERED: GAMUNEX-C 10% IV ONE (11:00)
[2019-04-12] MEDS ORDERED: BLISTEX MEDICATED BERRY LIP BALM TOP PRN (12:45)
--- NOTE | 2019-04-12 19:09 | Extremity Venous Study ---
PROCEDURE NAME: Venous U/S Bilateral Legs - 04/11/2019 REFERRING PHYSICIAN: John Moreira MD READING PHYSICIAN: Tapan Soria MD ELECTRONICS ENGINEERING TECHNICIAN: [place]. INDICATION: Leg swelling, possible PE with elevated D-dimer. FINDINGS: The deep and superficial veins of both lower extremities were imaged throughout their course. They are compressible, patent and without thrombus. There is a fluid collection in the right popliteal fossa. INTERPRETATION: No deep venous thrombosis or superficial venous thrombosis of the right lower extremity. There may be a right popliteal cyst. cc: MD John Balderas MD
--- NOTE | 2019-04-12 19:47 | PROGRESS NOTE ---
DATE: 04/12/2019 SUBJECTIVE: The patient was noted to be short of breath this morning, and she states that she did not sleep well because she had an anxiety attack. OBJECTIVE: Vital Signs: Temperature 98.6 degrees, blood pressure 199/57, heart rate 75, respirations 20, O2 saturation 97% on 4 L nasal cannula. Intake 960, output 1.5 L. General: This is a chronically ill-appearing elderly female lying in bed in no acute distress. Heart: S1, S2 normal. Regular rate and rhythm. Lungs: Coarse breath sounds bilaterally. Abdomen: Positive bowel sounds. Soft, nontender, nondistended. Extremities: No edema, no cyanosis. Neurologic: The patient is alert and oriented x3. LABORATORY DATA: White blood cell count 12, hemoglobin 10, hematocrit 36, platelets 254,000. Sodium 140, potassium 3.8, chloride 96, CO2 is 32, BUN 18, creatinine 1.6, glucose 143, magnesium 1.7. ASSESSMENT AND PLAN: 1. Juicw-nh-ugmjqxi hypoxemic and hypercapnic respiratory failure, multifactorial. Continue to treat the underlying issues. 2. Pneumonia. Continue with antibiotic therapy, bronchodilator therapy and supplemental oxygen. 3. Acute diastolic congestive heart failure exacerbation. Continue with diuretic therapy. Cardiology is following. 4. Atrial fibrillation. Continue on Cardizem. 5. Immunoglobulin deficiency. The patient received intravenous immune globulin today. 6. Anxiety disorder. Continue on Klonopin as needed. 7. Hypertension. Continue on the current antihypertensive regimen. 8. Chronic kidney disease stage 3. Stable. 9. Severe protein-calorie malnutrition. Continue with Boost with each meal. 10. Chronic obstructive pulmonary disease. Continue with the current treatment regimen. 11. Deep vein thrombosis prophylaxis. Continue on heparin. cc: Vesta Johnson MD
--- NOTE | 2019-04-12 20:39 | PULMONOLOGY PROGRESS NOTE ---
DATE: 04/12/2019 SUBJECTIVE: The patient is awake and alert. She denies shortness of breath at rest. She has a fair cough effort. Her CPAP machine has been brought in from home. OBJECTIVE: The patient has been afebrile for the last 24 hours. Blood pressure 189/57, heart rate 97, respiratory rate 16, oxygen saturation 96% on 4 L per nasal cannula. HEENT: Pupils are equal and reactive. Oropharynx appears clear. Neck is supple. Chest reveals good air entry bilaterally, with crackles in both lung bases. Cardiac exam: S1, S2. Abdomen is obese and soft. Extremities reveal 1+ peripheral edema. DIAGNOSTIC DATA: Echocardiogram reveals normal LV function with mild to moderate concentric left ventricular hypertrophy. LABORATORY DATA: Immunoglobulin levels are significantly reduced with an IgG level of 425. Sodium 140, potassium 3.8, chloride 96, bicarbonate 32, BUN 18, creatinine 1.6. White blood count 12.6, hemoglobin 10.8, platelet count 254,000. IMPRESSION: An 83-year-old with: 1. Hhmtx-rd-iljhwws hypoxemic respiratory failure. 2. Pulmonary edema with pleural effusions. 3. Atrial fibrillation. 4. Pneumonia. 5. Significant immunodeficiency. RECOMMENDATIONS: 1. Continue current antibiotic regimen. 2. Continue bronchial hygiene and mobilize patient as tolerated. 3. Diuresis as tolerated. 4. Agree with immunoglobulin replacement, given severe reduction. cc: Edmond Norman MD
[2019-04-13] MEDS: KLONOPIN PO PRN (01:35)
[2019-04-13] MEDS: XOPENEX NEB INH SCH ×4 (03:17→22:04)
[2019-04-13] MEDS: NS NEB INH SCH (03:17)
[2019-04-13] MEDS: CARDIZEM PO SCH ×4 (04:29→22:15)
[2019-04-13] MEDS: ZYVOX 600 MG/D5W 600 MG/300 ML IVPB IV SCH ×2 (04:42→18:06)
[2019-04-13] MEDS: HEPARIN SUBQ SCH ×3 (04:42→20:24)
[2019-04-13] MEDS: LASIX IV SCH ×2 (04:42→18:06)
[2019-04-13] MEDS: MAXIPIME 2 GM in NS 100 ML IV SCH ×2 (04:42→18:06)
[2019-04-13 04:50] LABS: ALLEN TEST YES; BE 14.2 mmoll (-3.0-3.0); METHB 0.7 % (0.0-1.5); O2(CT) 14.5 mL/dL (15.0-23.0); O2HB 96.1 % (95.0-99.0); PCO2(98.6) 41 mmHg (35-45); PO2(98.6) 80 mmHg (60-100); SAMPLE BLOOD; SAO2 98.6 % (95.0-100.0); THB 10.7 g/dL (11.5-17.4)
[2019-04-13 04:52] LABS: BLOOD TYPE ARTERIAL; MODALITY CANNULA; pH(98.6) 7.57 (7.35-7.45)
[2019-04-13] MEDS: XANAX PO PRN (04:52)
[2019-04-13 05:13] LABS: BASO# 0.04 X1000 (0.0-0.2); BASO% 0.6 % (0.0-0.8); EOS# 0.51 X1000 (0.0-0.7); EOS% 7.3 % (0.0-10.0); HEMATOCRIT 34.4 % (37.0-47.0); HEMOGLOBIN 10.3 g/dL (12.0-16.0); IMM GRAN# 0.04 X1000 (0.0-0.04); IMM GRAN% 0.6 % (0.0-0.5); LYMPH# 2.11 X1000 (1.2-3.4); MCH 26.3 PG (27-31); MCHC 29.9 g/dL (33-37); MONO# 0.72 X1000 (0.11-0.59); MONO% 10.2 % (1.7-9.3); MPV 11.7 FL (7.4-10.4); NEUT# 3.61 X1000 (1.4-6.5); NEUT% 51.3 % (42.2-75.2); PLT 215 X1000 (130-400); RBC 3.91 XMIL (4.2-5.4); RDW 17.6 % (11.5-14.5); WBC 7.03 X1000 (4.8-10.8)
[2019-04-13 05:40] LABS: CREATININE 1.6 mg/dL (0.5-0.9); POTASSIUM 3.9 mmol/L (3.5-5.1)
--- NOTE | 2019-04-13 07:51 | Diag Imaging Result Doc PS360 ---
EXAM: CHEST-PORTABLE INDICATION: pulmonary edema TECHNIQUE: One view COMPARISON: 04/12/2019 FINDINGS: Mild pulmonary venous congestion and interstitial edema are approximately stable. The right-sided effusion appears smaller, possibly due to positioning. The left effusion is approximately stable. No new consolidation is identified. Cardiac silhouette is stable. IMPRESSION: Apparent decrease in the prominence of the right pleural effusion. Electronically signed by Sohail Smith 04/13/2019 7:48 AM
[2019-04-13] MEDS: PREDNISONE PO SCH (08:49)
[2019-04-13] MEDS: LEXAPRO PO SCH (08:49)
[2019-04-13] MEDS: ASPIRIN PO SCH (08:49)
[2019-04-13] MEDS: ALDACTONE PO SCH ×2 (08:49→20:25)
[2019-04-13] MEDS: COZAAR PO SCH ×2 (08:49→20:25)
[2019-04-13 14:32] LABS: ALLEN TEST YES; BE 12.2 mmoll (-3.0-3.0); BLOOD TYPE ARTERIAL; HCO3-(ACT) 34.4 mmoll (20.0-26.0); METHB 0.9 % (0.0-1.5); MODALITY CANNULA; O2HB 95.5 % (95.0-99.0); PCO2(98.6) 42 mmHg (35-45); PO2(98.6) 76 mmHg (60-100); SAMPLE BLOOD; SAO2 97.7 % (95.0-100.0); THB 11.1 g/dL (11.5-17.4); pH(98.6) 7.54 (7.35-7.45)
--- NOTE | 2019-04-13 15:03 | Diag Imaging Result Doc PS360 ---
EXAM: CT HEAD W/O CONTRAST INDICATION: AMS TECHNIQUE: This exam was performed using automated exposure control, adjustment of mA or kV according to patient size, and/or use of iterative reconstruction technique. COMPARISON: CT dated 02/16/2019 and MRI dated 02/18/2019 FINDINGS: There is patchy low attenuation in the periventricular and subcortical white matter suggesting mild microangiopathy. There is a chronic lacunar infarct involving the right basal ganglion that is stable. There is subtle focal encephalomalacia involving the right frontal lobe related to an infarct that was acute on the previous studies. There is no definite acute infarct on the current study given the limited sensitivity of CT versus MRI. There is no discrete intracranial mass, mass effect, or intracranial hemorrhage. The surrounding soft tissues and bony structures are essentially unremarkable. IMPRESSION: Chronic appearing changes as described. No definite acute intracranial pathology by CT. Electronically signed by Sohail Smith 04/13/2019 3:00 PM
--- NOTE | 2019-04-13 18:15 | PROGRESS NOTE ---
DATE: 04/13/2019 SUBJECTIVE: The patient is sitting up in a chair. She states that she had an anxiety attack last night and did not sleep well. OBJECTIVE: Vital Signs: Temperature 98.4, blood pressure 120/96, heart rate 73, respirations 20, O2 saturation 94% on 4 L nasal cannula. General: She is a txqmlxxiaxd-xih-ziegvnolo elderly female lying in bed in no acute distress. Heart: S1, S2 normal. Regular rate and rhythm. Lungs: Equal air entry bilaterally. No wheezing. No rales. Abdomen: Positive bowel sounds. Soft, nontender, nondistended. Extremities: No edema no cyanosis. Neurologic: The patient is alert and oriented x3. LABS: White blood cell count 7, hemoglobin 10, hematocrit 34, platelets 215. Sodium 141, potassium 3.9, chloride 98. CO2 is 31, BUN 18, creatinine 1.6, glucose 114. ASSESSMENT AND PLAN: 1. Acute on chronic hypoxemic respiratory failure. Continue to treat the underlying issues. 2. Pneumonia. Continue with antibiotic therapy. 3. Acute diastolic congestive heart failure exacerbation. Continue to diurese the patient as tolerated. 4. Atrial fibrillation. Continue on Cardizem. 5. Immunoglobulin deficiency. The patient received IVIG yesterday. 6. Anxiety disorder. Continue on Klonopin as needed. 7. Chronic kidney disease stage 3. Stable. 8. Chronic obstructive pulmonary disease. Continue with bronchodilator therapy and supplemental oxygen. 9. Deep vein thrombosis prophylaxis. Continue on heparin. cc: Vesta Johnson MD MTDD
--- NOTE | 2019-04-13 19:15 | PULMONOLOGY PROGRESS NOTE ---
DATE: 04/13/2019 SUBJECTIVE: The patient is currently sleeping. The family members report she was awake this morning and she ate well before going back to sleep. She did not sleep well last evening and became anxious, and family members had come to the hospital. OBJECTIVE: The patient has been afebrile for the last 24 hours. Blood pressure 126/63, heart rate 71, respiratory rate 20, oxygen saturation 95% on 4 L per nasal cannula.HEENT: Pupils are equal and reactive. Oropharynx appears clear. Neck: Supple. Chest: Decreased breath sounds in the lung bases. Cardiac: S1-S2. Abdomen: Soft. Extremities: Peripheral edema 1+. LABORATORY AND DIAGNOSTIC DATA: Chest x-ray reveals decreasing effusion on the right with stable small effusion on the left. White blood count 7.03, hemoglobin 10.3, platelet 215,000. Arterial blood gas on 3 L per nasal cannula, pH 7.54, pCO2 of 42, PO2 of 76. Sodium 141, potassium 3.9, chloride 98, bicarbonate 31, BUN 18, creatinine 1.6. IMPRESSION: An 83-year-old with: 1. Pulmonary edema with bilateral effusions with marginal improvement. 2. Atrial fibrillation. 3. Acute on chronic hypoxemic respiratory failure. 4. Immunodeficiency. 5. Pneumonia. PLAN: 1. Continue current antibiotic regimen. 2. Continue diuresis as tolerated. 3. Continue to cycle oxygen and CPAP. 4. End-of-life discussions have been held. Agree with current resuscitation status. cc: Edmond Norman MD
[2019-04-13] MEDS: NORCO-5 PO PRN (20:32)
[2019-04-14] MEDS: XOPENEX NEB INH SCH ×4 (03:19→22:06)
[2019-04-14] MEDS: LASIX IV SCH ×2 (04:39→17:26)
[2019-04-14] MEDS: HEPARIN SUBQ SCH ×3 (04:39→20:37)
[2019-04-14] MEDS: CARDIZEM PO SCH ×4 (04:39→22:38)
[2019-04-14] MEDS: ZYVOX 600 MG/D5W 600 MG/300 ML IVPB IV SCH ×2 (04:39→17:27)
[2019-04-14] MEDS: MAXIPIME 2 GM in NS 100 ML IV SCH ×2 (04:39→17:27)
[2019-04-14 05:40] LABS: BASO# 0.08 X1000 (0.0-0.2); BASO% 1.5 % (0.0-0.8); EOS# 0.44 X1000 (0.0-0.7); EOS% 8.1 % (0.0-10.0); HEMATOCRIT 36.3 % (37.0-47.0); HEMOGLOBIN 10.7 g/dL (12.0-16.0); IMM GRAN# 0.02 X1000 (0.0-0.04); IMM GRAN% 0.4 % (0.0-0.5); LYMPH# 2.06 X1000 (1.2-3.4); LYMPH% 37.7 % (20.5-51.1); MCH 26.3 PG (27-31); MCHC 29.5 g/dL (33-37); MCV 89.2 FL (81-99); MONO# 0.53 X1000 (0.11-0.59); MONO% 9.7 % (1.7-9.3); MPV 11.2 FL (7.4-10.4); NEUT# 2.33 X1000 (1.4-6.5); NEUT% 42.6 % (42.2-75.2); PLT 195 X1000 (130-400); RBC 4.07 XMIL (4.2-5.4); RDW 17.5 % (11.5-14.5); WBC 5.46 X1000 (4.8-10.8)
[2019-04-14 06:14] LABS: CALCIUM 8.6 mg/dL (8.8-10.2); CREATININE 1.6 mg/dL (0.5-0.9); POTASSIUM 3.8 mmol/L (3.5-5.1)
[2019-04-14] MEDS: ASPIRIN PO SCH (08:25)
[2019-04-14] MEDS: LEXAPRO PO SCH (08:25)
[2019-04-14] MEDS: PREDNISONE PO SCH (08:27)
[2019-04-14] MEDS: COZAAR PO SCH ×2 (08:27→20:37)
[2019-04-14] MEDS: ALDACTONE PO SCH ×2 (08:27→20:37)
--- NOTE | 2019-04-14 14:11 | PROGRESS NOTE ---
DATE: 04/14/2019 SUBJECTIVE: The patient is confused. She is only oriented to herself. OBJECTIVE: Vital Signs: Temperature 98.2 degrees, blood pressure 123/65, heart rate 61, respirations 20, O2 saturation is 96% on 3 L nasal cannula. Intake 940, output 2.2 L. General: This is a chronically ill-appearing, elderly female, lying in bed in no acute distress. Heart: S1, S2 normal. Regular rate and rhythm. Lungs: Coarse breath sounds bilaterally. Abdomen: Positive bowel sounds. Soft, nontender, nondistended. Extremities: Trace pedal edema. No cyanosis. No calf tenderness. Neurologic: The patient is only oriented to self. She is able to move all 4 extremities. LABORATORY DATA: White blood cell count 5.4, hemoglobin 10, hematocrit 36, platelets 195,000. Sodium 137, potassium 3.8, chloride 94, CO2 of 31, BUN 20, creatinine 1.6, glucose 110, calcium 8.6. ASSESSMENT AND PLAN: 1. Encephalopathy. The patient's mental status remains altered. Her head CT from yesterday is unremarkable. Will continue to treat the underlying pneumonia. Will also consult with the neurologist for further recommendations. 2. Acute on chronic hypoxemic respiratory failure. Continue with treatment for pneumonia. 3. Pneumonia. Continue on intravenous antibiotic therapy and bronchodilator therapy. 4. Acute diastolic congestive heart failure exacerbation. Continue on diuretic therapy. 5. History of psoriasis. Aware. 6. Immunoglobulin deficiency. The patient received intravenous immunoglobulin on Monday. 7. History of a recent stroke. Continue on aspirin. 8. Anxiety disorder. Continue on Klonopin at bedtime. 9. Chronic kidney disease stage 3. Stable. 10. Deep vein thrombosis prophylaxis. Continue on heparin. cc: MD KAYDEN Castro
--- NOTE | 2019-04-14 17:24 | PULMONOLOGY PROGRESS NOTE ---
DATE: 04/14/2019 SUBJECTIVE: The patient is awake and alert. She can be oriented, but remains confused. OBJECTIVE: Vital Signs: The patient has been afebrile for the last 24 hours. Blood pressure 123/67, heart rate 61, respiratory rate 20, oxygen saturation 97% on 4 L per nasal. HEENT: Pupils are equal and reactive. Oropharynx appears clear. Neck: Is supple. Chest: Reveals good air entry bilaterally without wheezing or rhonchi. Cardiac exam: S1-S2. Abdomen: Is soft. Extremities: Reveal 1+ peripheral edema. LABORATORIES: White blood count 5.46, hemoglobin 10.7, platelet count a 195,000. Sodium 137, potassium 3.8, chloride 94, bicarbonate 31, BUN 20, creatinine 1.6. IMPRESSION: An 83-year-old with 1. Bilateral effusions and pulmonary edema. 2. Atrial fibrillation. 3. Acute on chronic hypoxemic respiratory failure. 4. Pneumonia. 5. Immunodeficiency. 6. Encephalopathy. PLAN: 1. Continue current antibiotic regimen. 2. Diuresis as tolerated. 3. Continue to cycle oxygen and CPAP. 4. Anticipate MRI tomorrow as outlined by the family. 5. Encourage ongoing end-of-life discussion. She is a do not resuscitate level 1, but there may be some unrealistic expectations by the daughter. cc: Edmond Norman MD
[2019-04-15] MEDS: XOPENEX NEB INH SCH ×4 (03:01→21:33)
[2019-04-15] MEDS: CARDIZEM PO SCH ×4 (05:40→23:01)
[2019-04-15] MEDS: XANAX PO PRN (05:41)
[2019-04-15] MEDS: ZYVOX 600 MG/D5W 600 MG/300 ML IVPB IV SCH (05:41)
[2019-04-15] MEDS: LASIX IV SCH (05:41)
[2019-04-15] MEDS: HEPARIN SUBQ SCH ×3 (05:41→20:18)
[2019-04-15] MEDS: MAXIPIME 2 GM in NS 100 ML IV SCH ×2 (05:41→17:53)
[2019-04-15 05:52] LABS: ALLEN TEST YES; BLOOD TYPE ARTERIAL; HCO3-(ACT) 32.7 mmoll (20.0-26.0); METHB 0.9 % (0.0-1.5); O2(CT) 14.7 mL/dL (15.0-23.0); O2HB 94.1 % (95.0-99.0); PCO2(98.6) 39 mmHg (35-45); PO2(98.6) 69 mmHg (60-100); SAMPLE BLOOD; SAO2 96.5 % (95.0-100.0); THB 11.1 g/dL (11.5-17.4); pH(98.6) 7.54 (7.35-7.45)
[2019-04-15 05:53] LABS: MODALITY CANNULA
--- NOTE | 2019-04-15 06:39 | Diag Imaging Result Doc PS360 ---
EXAM: CHEST-PORTABLE HISTORY: abnormal exam TECHNIQUE: Chest single view COMPARISON: 04/13/2019 FINDINGS: Poor inspiratory effort. The heart is enlarged. There is pulmonary edema. Small left effusion with basilar atelectasis. IMPRESSION: Cardiomegaly with pulmonary edema Electronically signed by Jay Laura 04/15/2019 6:37 AM
[2019-04-15 06:42] LABS: BASO# 0.05 X1000 (0.0-0.2); BASO% 0.7 % (0.0-0.8); EOS# 0.41 X1000 (0.0-0.7); EOS% 5.7 % (0.0-10.0); HEMATOCRIT 36.2 % (37.0-47.0); HEMOGLOBIN 10.8 g/dL (12.0-16.0); IMM GRAN# 0.02 X1000 (0.0-0.04); IMM GRAN% 0.3 % (0.0-0.5); LYMPH# 1.76 X1000 (1.2-3.4); LYMPH% 24.5 % (20.5-51.1); MCH 25.9 PG (27-31); MCHC 29.8 g/dL (33-37); MCV 86.8 FL (81-99); MONO# 0.67 X1000 (0.11-0.59); MONO% 9.3 % (1.7-9.3); MPV 11.4 FL (7.4-10.4); NEUT# 4.27 X1000 (1.4-6.5); NEUT% 59.5 % (42.2-75.2); PLT 241 X1000 (130-400); RBC 4.17 XMIL (4.2-5.4); RDW 17.3 % (11.5-14.5); WBC 7.18 X1000 (4.8-10.8)
[2019-04-15 07:18] LABS: PHOSPHORUS 3.4 mg/dL (2.7-4.5)
[2019-04-15 07:20] LABS: CALCIUM 9.2 mg/dL (8.8-10.2); POTASSIUM 3.7 mmol/L (3.5-5.1)
[2019-04-15] MEDS: ALDACTONE PO SCH ×2 (09:05→20:18)
[2019-04-15] MEDS: PREDNISONE PO SCH (09:05)
[2019-04-15] MEDS: ASPIRIN PO SCH (09:05)
[2019-04-15] MEDS: LEXAPRO PO SCH (09:06)
[2019-04-15] MEDS: COZAAR PO SCH ×2 (09:06→20:23)
[2019-04-15] MEDS: NS NEB INH SCH ×2 (09:45→15:21)
--- NOTE | 2019-04-15 10:00 | PROGRESS NOTE ---
DATE: 04/15/2019 SUBJECTIVE: This patient is sleepy, but arousable. She is oriented to person. She knows she is in the hospital. She is able to recognize her daughter, and say her name. She was confused for time. She was not able to say her location. I had a large conversation with daughter who is at the bedside. It has been requested an MRI without contrast. Her x-ray showed cardiomegaly with pulmonary edema, and for me, it looks just a little bit better compared with admission, but not a whole lot. Also, Palliative Care has been consulted. Her creatinine increased a little bit. I will decrease the furosemide from twice a day to once a day because this patient is not eating too much. She has a negative balance documented at 1 void, 8 L. Cardiology Department on board. I will wait for more recommendations. Also, Pulmonary Department is on board. This patient is DO NOT RESUSCITATE level 1. I had a louis conversation with the daughter about this patient's situation. She seems to be declining compared with admission. I will stop the Zyvox. She has a poor prognosis due to her age, generalized weakness, and current condition. OBJECTIVE: Vital Signs: Temperature 98.1 degrees, pulse 67, respiratory rate 15, blood pressure 120/70, oxygen saturation 96 on 4 L of nasal cannula. General: The patient looks chronically ill- appearing, elderly female. She is lying in bed. She does not seem to be in acute distress. HEENT: Head normocephalic. No trauma. PERRLA. Neck: Supple. No JVD. Central trachea. Chest: Coarse breath sounds bilaterally. Decreased at the bases, with some crepitus. Abdomen: Soft, nontender, nondistended. No hepatosplenomegaly. Extremities: Trace edema. No clubbing, no cyanosis. Neurological: The patient is sleepy, but arousable. She is oriented to person. She is able to recognize her daughter at the bedside. She is following commands, but she is extremely weak. She has not been eating too much. She is able to move all 4 extremities spontaneously. She is confused. LABORATORY DATA: WBC 7.1, hemoglobin 10.8, hematocrit 36.2, platelets 241,000. Sodium 133, potassium 3.7, chloride 92, bicarbonate 32, BUN 22, creatinine 2, glucose 101, calcium 9.2, magnesium 2. ASSESSMENT AND PLAN: 1. Encephalopathy. She is still confused. CT scan did not show any acute abnormality. We will continue treating this patient for pneumonia, but I will stop the Zyvox. Cultures have been negative so far. Continue with cefepime. It looks like Neurology has been consulted. We will wait for recommendations. 2. Acute on chronic hypoxemic respiratory failure. Continue treatment for pneumonia and pulmonary edema. Pulmonary Department on board. 3. Pneumonia. Continue with intravenous antibiotics and bronchodilator therapy. 4. Acute diastolic congestive heart failure. Cardiology on board. I will decrease the dose of the diuretics since her creatinine increased compared with yesterday. Also, she has not been eating too much. I will wait for more Cardiology recommendations. 5. History of psoriasis. Aware. 6. Immunoglobulin deficiency. This patient already received intravenous immunoglobulin on Monday. 7. History of recent stroke. Continue with aspirin. 8. Anxiety disorder. Continue with Klonopin that she has been taking at home chronically. 9. Chronic kidney disease stage 3. Creatinine increased a little bit compared with yesterday from 1.6 to 2. I will decrease the dose of the diuretics, especially Lasix from twice a day to once a day, and I will monitor. 10. Deep vein thrombosis prophylaxis. Continue with heparin. Overall, her prognosis seems to be poor due to her current condition, age, and inactivity/physical deconditioning. cc: David Preston MD
--- NOTE | 2019-04-15 13:11 | Diag Imaging Result Doc PS360 ---
MRI BRAIN W/O CONTRAST - 04/15/2019 INDICATION: confusion/recent stroke COMPARISON: 04/13/2019, 02/18/2019 FINDINGS: There is no area of restricted diffusion. There has been completion of the small right middle cerebral artery territory stroke, with some laminar cortical necrosis indicating recent scar tissue as well as some surrounding gliosis. No intracranial mass or hemorrhage. Stable mild atrophy and chronic microvascular disease. IMPRESSION: Chronic changes. No acute process. Electronically signed by Nishant Osborne 04/15/2019 1:09 PM
--- NOTE | 2019-04-15 19:21 | CONSULTATION ---
DATE OF CONSULTATION: 04/15/2019 REASON FOR CONSULT: Altered mental status. HISTORY OF PRESENT ILLNESS: This is an 83-year-old female with history of recent right hemisphere stroke, atrial fibrillation, and hypertension, who was admitted 04/09/2019 following a fall. History is from the patient's attentive family. Of note, the patient was recently hospitalized twice in January of this year with the 2nd hospitalization occurring due to right hemisphere stroke. I saw her during that hospitalization. This time, however, the patient was trying to get into the house using her walker. She tried to step up a single step, but lost her footing and fell backwards. While hospitalized, she has been treated for pulmonary edema and pneumonia, as well as mild COPD exacerbation. She was initially oriented for the first 3 or 4 days, but 2 days ago, after awakening from a nap in the evening, it was noted that she was confused. She has been that way ever since. Family does not feel like it has fluctuated a significant amount. She seems agitated and fidgety, jittery as well. There has not been overt seizure witnessed. No focal neurologic symptoms. Head CT 2 days ago did not show acute findings. MRI today also not showing acute findings. White count has improved to normal. Creatinine has increased from admission with normal BUN. Blood sugars have been mildly elevated. Ammonia normal. Review of home medications indicates that she takes clonazepam nightly for sleep. She also takes [place] only very rarely. She takes Lexapro daily, prednisone, and Humira. She also takes aspirin amongst others. Family reports that typically she is very "with it." They have not noticed any difficulty with forgetfulness or memory loss. PAST MEDICAL/SURGICAL HISTORY: Recent right hemisphere stroke, hypertension, COPD, depression, anxiety, atrial fibrillation. Hysterectomy. FAMILY HISTORY: Positive for coronary disease and hypertension. SOCIAL HISTORY: Former smoker. No alcohol or illicits. Her daughter is living with her currently. She has 10 children. ALLERGIES: No known drug allergies listed. REVIEW OF SYSTEMS: Review of systems unobtainable due to patient's altered mental status. PHYSICAL EXAMINATION: Vital Signs: Afebrile, blood pressure 129/54, pulse 60s to 70s, respirations 20, 97% on 4 L nasal cannula. Ms. Quintero is supine in bed. She is awake and alert. She follows some simple commands, not complex ones. Attention and concentration are diminished. She is a bit hyperactive, mostly jittery, a bit fidgety, and she is irritable. She is able to state her 1st name. She identifies some family members, but not others. She know she is in the hospital, but is not otherwise oriented. No obvious language disturbance on brief bedside testing. Pupils equal, round, and reactive. Gaze conjugate and forward. She has full lateral eye movements. Face appears symmetric with equal activation. Facial sensation reported intact. Tongue is midline. Could not visualize the palate. She is hard of hearing. Full shoulder shrug. I did not see pronator drift. She is tremulous on all the limbs, possibly worse when outstretched. She was not attentive enough to evaluate asterixis. Tone is equal in the limbs. Power is preserved in the limbs as tested. No obvious motor deficit. Rapid alternating movements are slowed, but equal bilaterally. She can perform [id number] with some assistance. Reflexes are diminished at the ankles. No clonus. Plantar response is downgoing. She reports intact sensation to light touch in the arms and legs, but is not attentive for further detailed sensory testing. DIAGNOSTICS: MRI noncontrast performed today: No acute findings. There is a completion of the small right MCA territory stroke from January that is visualized. Head CT: No acute findings. LABORATORY DATA: Reviewed in the chart. ASSESSMENT AND PLAN: Global encephalopathy, uncertain etiology, may be multifactorial. I would be certain that she is on medications that she typically takes at home and that she follows that schedule. I would eliminate any unnecessary medications. Continue treating the pneumonia and other medical issues per primary team. Frequent reorienting was discussed with the family. I am going to order a routine EEG. Thank you for the consultation. cc: Cathi Howard MD
[2019-04-15] MEDS: KLONOPIN PO PRN (20:17)
[2019-04-16] MEDS: XOPENEX NEB INH SCH ×4 (03:24→21:22)
[2019-04-16] MEDS: MAXIPIME 2 GM in NS 100 ML IV SCH ×2 (05:08→07:30)
[2019-04-16] MEDS: HEPARIN SUBQ SCH ×3 (05:08→22:01)
[2019-04-16] MEDS: CARDIZEM PO SCH ×4 (05:08→22:02)
[2019-04-16 06:51] LABS: CALCIUM 8.9 mg/dL (8.8-10.2); CREATININE 2.1 mg/dL (0.5-0.9); POTASSIUM 3.7 mmol/L (3.5-5.1)
--- NOTE | 2019-04-16 08:03 | Diag Imaging Result Doc PS360 ---
EXAM: CHEST-PORTABLE HISTORY: dyspnea TECHNIQUE: Single view COMPARISON: 04/15/2019 FINDINGS: The heart remains enlarged. Pulmonary edema persists. There are small pleural effusions. Inspiratory effort is similar to the prior exam. IMPRESSION: Persistent cardiomegaly and pulmonary edema with no interval improvement. Electronically signed by Jay Laura 04/16/2019 8:00 AM
--- NOTE | 2019-04-16 09:06 | PROGRESS NOTE ---
DATE: 04/16/2019 SUBJECTIVE: This patient is awake, but a little bit sleepy. She is oriented to person. She is able to recognize her family member at the bedside and say her name. She is following commands on and off. She is still confused. She has not been able to eat properly. As per the family yesterday she ate some bites only, and she is not drinking either. Her urine looks concentrated. I will start this patient on Clinimix, but because of her acute on chronic kidney disease I will hold for now the diuretics. I will also hold the losartan. I notified the nurse practitioner for Cardiology Department so they can readjust the medications. OBJECTIVE: Vital Signs: Temperature 98 degrees, pulse 62, respiratory rate 20, blood pressure 152/49, oxygen saturation 97% on 4 L of nasal cannula. X-ray: Showed cardiomegaly and pulmonary edema with no improvement. HEENT: Head normocephalic, no trauma. PERRLA. Neck: Supple. No JVD. No masses. Central trachea. Chest: Coarse breath sounds bilaterally, decreased at the bases with some crepitus. Abdomen: Soft, nontender, nondistended. No hepatosplenomegaly. Extremities: No edema, no clubbing, no cyanosis. Neurological examination: The patient is alert. She is or oriented to person. She is a little bit sleepy. She is able to recognize family members at the bedside and say her name. She is following commands on and off. LABORATORY: Sodium 136, potassium 3.7, chloride 97, bicarbonate 24. BUN 26, creatinine 2.1, glucose 96, calcium 8.9. ASSESSMENT AND PLAN: 1. Encephalopathy. This could be multifactorial. She is still confused. CT scan and MRI did not show any abnormality. Neurology Department on board. We will continue treating her pneumonia. Cultures are negative so far. 2. Acute on chronic hypoxemic respiratory failure. Continue treatment for pneumonia and pulmonary edema. Pulmonary Department on board, as well as Cardiology. 3. Pneumonia. Continue with intravenous antibiotics and bronchodilator therapy. 4. Acute diastolic congestive heart failure. Cardiology on board. I decreased the dose of the diuretics yesterday, but given her acute kidney injury on chronic kidney disease, I will hold for now her diuretics completely and losartan. I notified the Cardiology Department nurse practitioner. 5. History of psoriasis. Aware. 6. Immunoglobulin deficiency. She received already IVIG. 7. History of recent stroke. Continue with aspirin. 8. Anxiety disorder. Aware. 9. Chronic kidney disease stage III. Creatinine increased a little bit compared with yesterday, as well as BUN. I have been holding for now diuretics and losartan. I will wait for Cardiology recommendations. 10. Deep vein thrombosis prophylaxis. Continue with heparin, renally dosed. Overall her prognosis seems to be poor due to her current condition, age, inactivity/physical deconditioning, but we will continue with the same management to see if she improves. cc: David Preston MD
[2019-04-16] MEDS: ASPIRIN PO SCH (10:17)
[2019-04-16] MEDS: CLINIMIX E 4.25%-5% SOLUTION 1,000 ML IV SCH ×2 (10:18→22:02)
[2019-04-16] MEDS: PREDNISONE PO SCH (10:18)
[2019-04-16] MEDS: LEXAPRO PO SCH (10:18)
--- NOTE | 2019-04-16 12:24 | EKG Report ---
Test Performed on : 04/16/2019 11:47:28 AM Test Reason : afib Blood Pressure : / mmHG Vent. Rate : 052 BPM Atrial Rate : 326 BPM P-R Int : 000 ms QRS Dur : 074 ms QT Int : 474 ms P-R-T Axes : 000 004 214 degrees QTc Int : 440 ms Atrial fibrillation. with slow ventricular response. Voltage criteria for left ventricular hypertrophy ST & T wave abnormality, consider inferior ischemia ST & T wave abnormality, consider anterolateral ischemia Abnormal ECG When compared with ECG of 11-APR-2019 12:22, Vent. rate has decreased BY 31 BPM T wave inversion more evident in Anterior leads Confirmed by Ophelia HAMLIN, Chip Barreto ([id number]) on 04/16/2019 11:09:42 PM
[2019-04-16] MEDS: NORCO-5 PO PRN (13:24)
--- NOTE | 2019-04-16 15:12 | EEG REPORT ---
DATE: 04/15/2019 REFERRING PHYSICIAN: Dr. Cathi Howard. TELECOMMUNICATIONS SALES REPRESENTATIVE: Barb Sauceda. BACKGROUND INFORMATION/TECHNIQUE: This is a digitally recorded portable routine EEG with video. HISTORY: An 83-year-old female patient with altered mental status, recent right hemisphere stroke, atrial fibrillation, hypertension. EEG is ordered to detect evidence of seizures. Medications include clonazepam, [place], Xanax p.r.n., Lexapro. Cefepime. EEG FINDINGS: A posterior dominant alpha rhythm is not seen. The background consists of relatively high amplitude theta-delta slowing with intermixed faster frequencies. Occasional-to- intermittent diffuse triphasic waves and triphasic-like waves are seen throughout the study, at times with sharply contoured features. No definite persistent focal slowing. No definite epileptiform discharges. No seizures. Hyperventilation is not performed. Photic stimulation does not alter the record. No definite drowsiness patterns. Stage II sleep is not seen. EKG demonstrates irregular intervals. IMPRESSION AND CLINICAL CORRELATION: Abnormal routine EEG due to: Moderate generalized slowing with triphasic waves and sharply contoured waveforms as detailed above indicative of a moderate nonspecific encephalopathy. Cefepime toxicity should be considered. No definite epileptiform discharges or seizures seen on the current study. This does not rule out an underlying seizure disorder. Generalized slowing is a nonspecific finding that can be seen in processes that diffusely affect the cerebrum, including toxic, metabolic, pharmacologic, post hypoxic, and infectious etiologies. Triphasic waves are also nonspecific, but can be seen with metabolic encephalopathies, in particular with hepatic or renal derangements. Clinical correlation is recommended. cc: Cathi Howard MD [facility]
--- NOTE | 2019-04-16 16:29 | PROGRESS NOTE ---
DATE: 04/16/2019 SUBJECTIVE: No major overnight events. The patient has remained confused. She has actually been sleeping now for the last couple of hours, which is the first time that she has had some extended sleep for a little while now. OBJECTIVE: Vital Signs: She is afebrile. Blood pressure 188/64, pulse 50s, respirations 20, and oxygen saturation 99% on nasal cannula 4 L. General: Ms. Quintero is supine in bed. She appears to be sleeping with eyes closed. She is easily waked, sighs , but does not speak to me today. Looks to her family often. HEENT/Neurologic: Pupils are equal, round, and reactive. Gaze is conjugate. There is horizontal eye movement spontaneously. Face is symmetric with equal activation. She is seen to spontaneously move her limbs. No obvious focal deficit. DIAGNOSTICS: Routine EEG was personally reviewed showing moderate relatively high amplitude theta delta slowing with intermixed faster frequency, as well as diffuse triphasic waves and triphasic- like waves at times with sharply contoured components. No definite epileptiform discharges. No seizures. Labs reviewed in the chart. Normal white count. Her BUN has crept up today 26. Creatinine also has crept up today 2.1. Ammonia was normal. AST and ALT were normal this admission. ASSESSMENT AND PLAN: Global encephalopathy, likely multifactorial. Based on the presentation and EEG findings, I think we should consider the possibility of cefepime toxicity. I would recommend discontinuing this medication in favor of another antibiotic. Continue treating her acute kidney injury, pneumonia and any other metabolic derangement. Continue close monitoring and let us see how she does. cc: MD KAYDEN Lincoln
[2019-04-17] MEDS: XANAX PO PRN (03:40)
[2019-04-17] MEDS: XOPENEX NEB INH SCH ×4 (03:50→21:47)
[2019-04-17] MEDS: CARDIZEM PO SCH ×4 (04:18→20:20)
[2019-04-17 06:17] LABS: BASO# 0.04 X1000 (0.0-0.2); BASO% 0.5 % (0.0-0.8); EOS# 0.46 X1000 (0.0-0.7); EOS% 6.2 % (0.0-10.0); HEMATOCRIT 32.6 % (37.0-47.0); HEMOGLOBIN 9.8 g/dL (12.0-16.0); IMM GRAN# 0.02 X1000 (0.0-0.04); IMM GRAN% 0.3 % (0.0-0.5); LYMPH# 2.29 X1000 (1.2-3.4); LYMPH% 30.7 % (20.5-51.1); MCH 26.3 PG (27-31); MCHC 30.1 g/dL (33-37); MCV 87.6 FL (81-99); MONO# 0.83 X1000 (0.11-0.59); MONO% 11.1 % (1.7-9.3); MPV 11.3 FL (7.4-10.4); NEUT# 3.82 X1000 (1.4-6.5); NEUT% 51.2 % (42.2-75.2); PLT 193 X1000 (130-400); RBC 3.72 XMIL (4.2-5.4); RDW 16.8 % (11.5-14.5); WBC 7.46 X1000 (4.8-10.8)
[2019-04-17 06:43] LABS: CALCIUM 9.6 mg/dL (8.8-10.2); CREATININE 1.8 mg/dL (0.5-0.9); MAGNESIUM 2.5 mg/dL (1.5-2.7); POTASSIUM 4.2 mmol/L (3.5-5.1)
--- NOTE | 2019-04-17 07:27 | Diag Imaging Result Doc PS360 ---
EXAM: CHEST-PORTABLE INDICATION: dyspnea TECHNIQUE: One view COMPARISON: 04/16/2019 FINDINGS: Mild interstitial edema and pulmonary venous congestion is approximately stable. There are stable tiny effusions, at least on the left. No new consolidation is identified. Cardiac silhouette is stable. IMPRESSION: Stable chest. Electronically signed by Sohail Smith 04/17/2019 7:25 AM
--- NOTE | 2019-04-17 08:36 | CARDIOLOGY PROGRESS NOTE ---
DATE: 04/17/2019 CHIEF COMPLAINT: Shortness of breath. SUBJECTIVE: The patient is very lethargic this morning. According to her daughter, who spent the night with her, she did not sleep last night until just about 4:30 in the morning. She does not feel comfortable, however, she does not specify whether or not she is having pain anywhere. Chest x-ray done today shows "stable chest" with mild interstitial edema, pulmonary venous congestion approximately stable. The patient has been eating very poorly. OBJECTIVE: Vital signs: Temperature 97.6, pulse 68, respirations 16, blood pressure 173/53. General: The patient wakes up, however, she tends to drift to sleep. She is shaky. HEENT: No obvious abnormality. Chest: Diminished breath sounds at bases. Heart: Sounds are irregular, somewhat bradycardic. Abdomen: Obese, nontender. Extremities: Showed no significant edema. Neurologic exam: She has a tremor. She drifts in to sleep. She appears to be inattentive. Generally weak. Her 12-lead EKG yesterday showed atrial fibrillation with a rate of 52 beats per minute, diffuse repolarization abnormality. BLOOD WORK: Today, hemoglobin 9.8, hematocrit 32.6. Sodium 138, potassium 4.2, BUN 35, creatinine 1.8. IMPRESSION: 1. Patient who basically appears to have a downhill course as far as her mentation. She remains lying in bed. Not willing to do much. She has had a stroke recently. She is being followed by Neurology. They believe that she has some sort of a global/toxic encephalopathy. 2. Chronic heart failure. This appears to be mostly diastolic type with pleural effusions and permanent atrial fibrillation. 3. Obesity. 4. History of hypertension. RECOMMENDATIONS: At this time, I will suggest to continue current therapy. This patient really would benefit from comfort measures as goal of care. I do not believe that she will be able to withstand intensive rehabilitation therapy to make her walk again and function independently. My personal advice would be to discuss with the family and discharge her home with hospice care. I will be glad to discuss this with family and Dr. Norman from Pulmonary, who seems to share my opinion. cc: John Moreira MD
--- NOTE | 2019-04-17 08:37 | PROVIDER PROGRESS NOTE ---
Progress Note Pulmonary: Case evaluated. Full progress note to follow.
--- NOTE | 2019-04-17 08:56 | PROGRESS NOTE ---
DATE: 04/17/2019 SUBJECTIVE: At the moment of my physical exam, this patient was sleepy, but arousable. She was able to say her name, and she was able to recognize a family member at the bedside and say her name also. As per the family member, who spent the night with her, she was more oriented during the night, but she spent basically the whole night awake. She got confused around 3:30 a.m., and she fell asleep finally at 5 a.m. I did an x-ray today that seems to be stable with mild interstitial edema and pulmonary venous congestion, tiny pleural effusions. No new consolidation identified. Yesterday, I discussed the case with the neurologist. She has been on cefepime, which has been stopped already. We were thinking about cefepime toxicity due to her mental status changes, but it could be related to other problems as well. OBJECTIVE: Vital Signs: Temperature 97.9 degrees, pulse 54, respiratory rate 15, blood pressure 156/124, oxygen saturation 96 on 4 L of nasal cannula. HEENT: Head normocephalic. No trauma. PERRLA. Neck: Supple. No JVD. No masses. Central trachea. Chest: Coarse breath sounds bilaterally. Decreased at the bases with some crepitus. Abdomen: Soft, nontender, nondistended. No hepatosplenomegaly. Extremities: No edema, no clubbing, no cyanosis. Neurological: At the moment of my physical exam, this patient was sleepy, but arousable. She was able to say her name, and she was able to recognize her family members at the bedside. She is following commands on and off, but she is not consistent. Apparently, she ate 3 ice creams during the night, and her urine output is about 700 mL in the past 24 hours. LABORATORY DATA: WBC 7.4, hemoglobin 9.8, hematocrit 32.6, platelets 193,000. Sodium 138, potassium 4.2, chloride 99, bicarbonate 31, BUN 35, creatinine 1.8, glucose 137, calcium 9.6. Magnesium 2.5. ASSESSMENT AND PLAN: 1. Encephalopathy. This could be multifactorial. We have stopped the cefepime yesterday for the possibility of toxicity, but this could be also delirium due to hospitalization and age. CT scan of the head and MRI of the head did not show any abnormality. Neurology Department on board. 2. Acute on chronic hypoxemic respiratory failure. She was treated with antibiotics for a few days, which have been stopped. I do not see any consolidation now on the x-ray. Since this patient is not having leukocytosis of fever, I will continue treating her without antibiotics to see how she does. I have restarted her Lasix today. 3. Pneumonia. As above. 4. Acute diastolic congestive heart failure. Cardiology on board. I will restart the dose of the diuretics today, and I will hold for now also the losartan. I will restart this medication later during this hospitalization if I am able to do that. 5. History of psoriasis. Aware. 6. Immunoglobulin deficiency. She already received intravenous immunoglobulin. 7. History of recent stroke. Continue with aspirin. 8. Anxiety disorder. Aware. 9. Chronic kidney disease stage 3. Creatinine looks a little bit better compared with yesterday. BUN increased a little bit. She had urine output of 700 mL in the past 24 hours. I will restart her diuretics to see how she does. 10. Deep vein thrombosis prophylaxis with heparin, renally dosed. Overall, her prognosis seems to be poor due to her current condition, age, multiple comorbidities, inactivity, physical deconditioning. Cardiology Department feels that this patient needs to be probably in hospice, and Pulmonary Department wants to encourage ongoing end-of-life discussion. cc: David Preston MD
[2019-04-17] MEDS: LASIX IV SCH (09:20)
[2019-04-17] MEDS: HEPARIN SUBQ SCH ×2 (09:20→20:27)
[2019-04-17] MEDS: PREDNISONE PO SCH (09:20)
[2019-04-17] MEDS: LEXAPRO PO SCH (09:20)
[2019-04-17] MEDS: ASPIRIN PO SCH (09:20)
--- NOTE | 2019-04-17 11:42 | PROGRESS NOTE ---
DATE: 04/17/2019 Dr. Howard saw Ms. Quintero over the last few days. She has a global encephalopathy with likely multiple factors. Cefepime has been discontinued. She may be a little bit brighter today. On my exam, she initially appeared to be sleeping. She was very easy to wake and was alert during my time at the bedside. She followed simple commands consistently. Speech was minimal but understandable. Limb tone is symmetric. 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 There is good lateral eye movement spontaneously and with passive head turning. Neck is supple. Brain MRI showed an old right-sided lesion consistent with prior infarct but there was nothing acute. EEG showed generalized slowing with some triphasic waves. Chemistry shows BUN up a little bit at 35. Medicines include alprazolam 0.5 mg with a dose every few days, clonazepam 0.25 mg with a dose every few days, hydrocodone 5 mg with a dose every few days. I do not have any new thoughts or new suggestions. Nothing to add to Dr. Howard's earlier recommendations. I hope she will continue to improve. Thanks for asking neurology to see Ms. Quintero. cc: Lindsay Kauffman III, MD [facility]
[2019-04-17] MEDS: CLINIMIX E 4.25%-5% SOLUTION 1,000 ML IV SCH (12:00)
[2019-04-17] MEDS: NORCO-5 PO PRN (20:26)
[2019-04-18] MEDS: CLINIMIX E 4.25%-5% SOLUTION 1,000 ML IV SCH ×2 (01:09→08:31)
[2019-04-18] MEDS: XOPENEX NEB INH SCH ×4 (03:26→21:18)
[2019-04-18] MEDS: CARDIZEM PO SCH ×5 (05:49→22:07)
[2019-04-18 06:26] LABS: BASO# 0.09 X1000 (0.0-0.2); BASO% 1.3 % (0.0-0.8); EOS# 0.44 X1000 (0.0-0.7); EOS% 6.6 % (0.0-10.0); HEMATOCRIT 35.9 % (37.0-47.0); HEMOGLOBIN 10.8 g/dL (12.0-16.0); IMM GRAN# 0.04 X1000 (0.0-0.04); IMM GRAN% 0.6 % (0.0-0.5); LYMPH# 2.14 X1000 (1.2-3.4); LYMPH% 31.9 % (20.5-51.1); MCH 27.1 PG (27-31); MCHC 30.1 g/dL (33-37); MCV 90.2 FL (81-99); MONO# 0.94 X1000 (0.11-0.59); MPV 10.5 FL (7.4-10.4); NEUT# 3.05 X1000 (1.4-6.5); NEUT% 45.6 % (42.2-75.2); PLT 163 X1000 (130-400); RBC 3.98 XMIL (4.2-5.4); RDW 17.2 % (11.5-14.5)
[2019-04-18 06:34] LABS: CALCIUM 8.8 mg/dL (8.8-10.2); CREATININE 1.5 mg/dL (0.5-0.9); POTASSIUM 4.9 mmol/L (3.5-5.1)
--- NOTE | 2019-04-18 08:21 | PROGRESS NOTE ---
DATE: 04/18/2019 SUBJECTIVE: This patient seems to be better today. She is sleepy, but arousable. She is following simple commands consistently. She is able to stand and surprisingly this patient is oriented x3, but she is extremely weak. As per the nurse, she started eating some yesterday night, so I will decrease the rate of the Clinimix from 75 to 50. I will continue with the same management. Her kidney function seems to be improving a little bit. Creatinine decreased from 1.8 to 1.5, but the BUN increased from 35 to 40. No family members at the bedside at this moment. I have suggested to the nurse to start feeding this patient more, and also to try to see this patient at the bedside. Physical therapy on board already. OBJECTIVE: Vital Signs: Temperature 98.1 degrees, pulse 65, respiratory rate 20, blood pressure 153/72, oxygen saturation 96 on 3 L of nasal cannula. HEENT: Head normocephalic, no trauma. PERRLA. Neck: Supple. No JVD. No masses. Central trachea. Chest: Coarse breath sounds bilaterally, decreased at the bases with some crepitus. Abdomen: Soft, nontender, nondistended. No hepatosplenomegaly. Extremities: No edema, no clubbing, no cyanosis. Neurological examination: At the moment of her physical exam, she was sleepy, but arousable. She was following commands. She was answering my questions. She was able to say her name, where she is located and the year. Her tonicity is the same in 4 extremities, but she does have generalized weakness. LABORATORY: WBC 6.7, hemoglobin 10.8, hematocrit 35.9, platelets 163. Sodium 136, potassium 4.9, chloride 100, bicarbonate 26. BUN 40, creatinine 1.5, glucose 118, calcium 8.8. ASSESSMENT AND PLAN: 1. Encephalopathy. This could be multifactorial. We stopped the cefepime 2 days ago because of the possibility of toxicity. She he is getting better. I will continue with the same management for now. 2. Acute on chronic hypoxemic respiratory failure. She is still on nasal cannula, but she seems to be in no distress. We will continue with the same management, and I will get an x-ray tomorrow. Continue with diuretics. That seems to be working for her. 3. Pneumonia. She already received treatment for pneumonia; last x-ray did not show infiltrates. I will get a new x-ray in the morning. Her temperature has been normal and her white blood cell count has been normal as well. 4. Acute diastolic congestive heart failure. Cardiology on board. I restarted diuretics yesterday. I will continue with same management for now, and I will restart her medications slowly. 5. History of psoriasis. Aware. 6. 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 7. History of recent stroke. Continue with aspirin. 8. Anxiety disorder. Aware. 9. Chronic kidney disease stage III. Creatinine looks better. BUN is higher. She received Lasix yesterday and the urine output is around 1050 with a negative balance of 56. 10. Deep vein thrombosis prophylaxis with heparin, renally dosed. cc: David Preston MD
[2019-04-18] MEDS: HEPARIN SUBQ SCH ×2 (08:32→20:57)
[2019-04-18] MEDS: PREDNISONE PO SCH (08:32)
[2019-04-18] MEDS: ASPIRIN PO SCH (08:32)
[2019-04-18] MEDS: LASIX IV SCH (08:32)
[2019-04-18] MEDS: LEXAPRO PO SCH (08:32)
[2019-04-18] MEDS: COZAAR PO SCH ×2 (08:42→20:57)
[2019-04-19] MEDS: CLINIMIX E 4.25%-5% SOLUTION 1,000 ML IV SCH ×2 (01:29→03:04)
[2019-04-19] MEDS: CARDIZEM PO SCH ×3 (04:48→17:32)
[2019-04-19] MEDS: XOPENEX NEB INH SCH ×4 (04:54→21:10)
--- NOTE | 2019-04-19 07:12 | Diag Imaging Result Doc PS360 ---
EXAM: CHEST-PORTABLE 04/19/2019 HISTORY: dyspnea TECHNIQUE: AP portable at 0556 COMMENT: The heart size is slightly smaller than on 04/17/2019. The lungs are slightly better expanded and there is less interstitial pulmonary edema. There is still obscuration of left hemidiaphragm which may be due to atelectasis or pneumonia. IMPRESSION: Improved pulmonary edema. Left lower lobe atelectasis versus pneumonia. Electronically signed by Loyd Dallas 04/19/2019 7:10 AM
--- NOTE | 2019-04-19 09:13 | PROGRESS NOTE ---
DATE: 04/19/2019 SUBJECTIVE: The patient seems to be getting better. She is oriented. She is tolerating p.o., so I will stop the Clinimix since she is not having problems eating. I have restarted her losartan. Let us see how she does with this. She seems to be stable. She is having good urine output with her Lasix. Vital signs are stable. OBJECTIVE: Vital Signs: Temperature 98.5 degrees, pulse 57, respiratory rate 21, blood pressure 145/115, oxygen saturation 96 on 3.5 L nasal cannula. HEENT: Head normocephalic. No trauma. PERRLA. Neck: Supple. No JVD. No masses. Central trachea. Chest: Coarse breath sounds bilaterally with some crepitus at the bases. Abdomen: Soft, nontender, nondistended. No hepatosplenomegaly. Extremities: No edema, no clubbing, no cyanosis. Neurological: This patient is alert. She is oriented. She is following commands. Generalized weakness. LABORATORY: WBC 6.7, hemoglobin 10.8, hematocrit 35.9, platelets 163,000. Sodium 136, potassium 4.9, chloride 100, bicarbonate 26, BUN 40, creatinine 1.5, glucose 118, calcium 8.8. These laboratories are from yesterday. The lab work from today is pending. I ordered a BMP. ASSESSMENT AND PLAN: 1. Encephalopathy, resolved. Likely multifactorial, probably related to cefepime toxicity. 2. Acute on chronic hypoxemic respiratory failure. She seems to be more stable. Continue with oxygen supplementation. 3. Pneumonia, she received treatment with antibiotics for a few days. I stopped the antibiotics. Her white blood cell count has been normal and no fever. Last x-ray did not show infiltrates, so I will monitor for now. 4. Acute diastolic congestive heart failure. Cardiology on board. I restarted Lasix and today I will put her on losartan. Will monitor for now. 5. History of psoriasis, aware. 6. 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 7. History of recent stroke. Continue with aspirin. 8. Anxiety disorder, aware. 9. Chronic kidney disease stage 3. Creatinine yesterday was better. She is having good urine output. I will continue with same management for now. 10. Deep vein thrombosis prophylaxis with heparin renally dosed. DISPOSITION: It looks like hospice has been on board and probably I will discharge this patient during the weekend to home with hospice. cc: David Preston MD
[2019-04-19] MEDS: LEXAPRO PO SCH (09:14)
[2019-04-19] MEDS: LASIX IV SCH (09:14)
[2019-04-19] MEDS: HEPARIN SUBQ SCH ×2 (09:15→20:41)
[2019-04-19] MEDS: ASPIRIN PO SCH (09:15)
[2019-04-19] MEDS: COZAAR PO SCH ×2 (09:15→20:40)
[2019-04-19] MEDS: PREDNISONE PO SCH (09:15)
[2019-04-19 09:24] LABS: CALCIUM 9.6 mg/dL (8.8-10.2); CREATININE 1.3 mg/dL (0.5-0.9); POTASSIUM 5.1 mmol/L (3.5-5.1)
[2019-04-19] MEDS: ALDACTONE PO SCH ×2 (09:29→20:41)
[2019-04-19] MEDS: KLONOPIN PO PRN (20:40)
[2019-04-19 23:38] VITALS: BP 173/39
[2019-04-20] MEDS: CARDIZEM PO SCH ×2 (00:46→04:23)
[2019-04-20] MEDS: XOPENEX NEB INH SCH ×3 (04:57→09:08)
[2019-04-20 06:48] LABS: CALCIUM 9.4 mg/dL (8.8-10.2); CREATININE 1.4 mg/dL (0.5-0.9); POTASSIUM 5.3 mmol/L (3.5-5.1)
[2019-04-20] MEDS: LEXAPRO PO SCH (08:42)
[2019-04-20] MEDS: COZAAR PO SCH (08:42)
[2019-04-20] MEDS: ASPIRIN PO SCH (08:43)
[2019-04-20] MEDS: PREDNISONE PO SCH (08:43)
[2019-04-20] MEDS ORDERED: LASIX PO SCH (09:00)
[2019-04-20] MEDS ORDERED: CARDIZEM CD PO SCH (09:00)
--- NOTE | 2019-04-20 12:06 | DISCHARGE SUMMARY ---
ADMISSION DATE: 04/08/2019 DISCHARGE DATE: 04/20/2019 CONSULTATION: 1. Evans Perry MD of Pulmonology. 2. John Moreira MD, with Cardiology. PERTINENT PROCEDURES: 1. Chest x-ray: Cardiomegaly, pulmonary edema, pleural effusion. 2. Venous Doppler: No DVT or superficial venous thrombosis of the right lower extremity. 3. Echocardiogram limited view shows an EF of 70%. 4. Head CT: Chronic-appearing changes. 5. Brain MRI: Chronic changes, no acute process. 6. EEG: Generalized slowing indicative of moderate nonspecific encephalopathy. No definite epileptiform discharges or seizures seen on the study. DISCHARGE DIAGNOSIS: 1. Encephalopathy resolved likely multifactorial probably related to cefepime toxicity. 2. Saoic-rj-nsqfzur hypoxemic respiratory failure. Continue with oxygen supplementation. Stable. 3. Pneumonia. The patient received treatment with antibiotics. Latest chest x-rays did not show any infiltrates. She was taken off intravenous antibiotics. 4. Acute diastolic congestive heart failure followed by Cardiology. Lasix has been reinitiated as well as her losartan. Improved. 5. History of psoriasis. Aware. 6. Immunoglobulin deficiency. She has received IVIG. 7. History of recent stroke. Continue aspirin. 8. Anxiety disorder. Aware. 9. Chronic kidney disease stage 3. Creatinine has improved. Good urine output. HOSPITAL COURSE: Briefly, Ms. Quintero is an 83-year-old female with a history of a recent right hemisphere stroke, atrial fibrillation, hypertension, who was admitted on 04/09/2019 following a fall. She was hospitalized twice in January, one of those was secondary to the stroke. She was treated for pulmonary edema as well as pneumonia and acute hypoxemic respiratory failure. Initially, she was alert and oriented upon admission, however, a few days in to her admission she became confused as well as agitated. Head CT did not show any acute findings. Her MRI did not show any acute findings. Her pneumonia improved. They did an EEG. They felt it could be related to her antibiotic toxicity, she was taken off that. Her ammonia level was normal. Her encephalopathy slowly resolved as well as her respiratory failure. She was taken off her antibiotics for her pneumonia and overall has somewhat improved. Palliative Care spoke with the family and [facility] came in and spoke with the family. They are agreeable to go home initially with home health and then transition to hospice care. VITAL SIGNS AT THE TIME OF HER DISCHARGE: Temperature is 97.5, heart rate 60, respiratory rate is 18, blood pressure 179/39, O2 is 98% on 3 L nasal cannula. FOLLOWUP: Ms. Quintero is being discharged home with family and home health to transition to [facility]. She can return to the ED or call 911 for any worsening of symptoms. Dictated by CLARICE Llamas for David Preston MD cc: David Preston MD
== END 2019-04-20 09:52 | disposition home health service (06) | DRG 291 ==
LOC: SUATTDRO 20:46 → DIRADM 20:46 → 2N 22:22
PROVIDERS: ATTEND Internal Medicine

== ENCOUNTER 2019-07-20 07:21 | Inpatient (IN) ==
[2019-07-20] MEDS ORDERED: DUONEB (A & A) INH ONE (07:31)
[2019-07-20] MEDS ORDERED: NS 1,000 ML IV ONE (07:31)
--- NOTE | 2019-07-20 07:45 | PROVIDER DOCUMENTATION ---
HPI-Respiratory General - General Chief Complaint: Shortness of Breath Stated Complaint: Respiratory Distress Time Seen by Provider: 07/20/19 07:27 Allergies/Adverse Reactions: Patient Allergies Allergy/AdvReac Type Severity Reaction Status Date / Time No Known Allergies Allergy Verified 07/20/19 07:37 Home Medications: Home Medication List Medication Instructions Recorded Confirmed Last Taken Type Adalimumab [Humira Pen] 1 dose SUBQ Q14D 01/31/19 07/20/19 07/11/19 History Albuterol [Albuterol Neb] 2.5 mg INH TID PRN 01/31/19 07/20/19 07/18/19 History Budesonide/Formoterol Fumarate 2 puff INH BID 01/31/19 07/20/19 07/18/19 History [Symbicort 160-4.5 Mcg Inhaler] Escitalopram Oxalate [Lexapro] 10 mg PO DAILY 01/31/19 07/20/19 07/18/19 History Furosemide [Lasix] 40 mg PO DAILY 01/31/19 07/20/19 07/18/19 History Prednisone 5 mg PO DAILY 01/31/19 07/20/19 07/18/19 History Aspirin 325 mg PO DAILY tab 02/18/19 07/20/19 07/18/19 Rx Ergocalciferol (Vitamin D2) 1 cap PO Q7D 04/08/19 07/20/19 07/14/19 History [Vitamin D] Diltiazem HCl [Cardizem Cd] 120 mg PO DAILY #90 cap.er.24h 04/20/19 07/20/19 07/18/19 Rx Hydrocodone/APAP 7.5 mg/325 mg 1 tab PO Q6H PRN #15 tab 04/20/19 07/20/19 Unknown Rx [Cavour-7.5] Losartan [Cozaar] 25 mg PO BID #120 tab 04/20/19 07/20/19 07/18/19 Rx Temazepam [Restoril] 15 mg PO HS PRN PRN 07/20/19 07/20/19 07/18/19 History Trazodone [Desyrel] 150 mg PO QHS 07/20/19 07/20/19 07/18/19 History - History of Present Illness-Resp Nature of Presenting Problem: Patient presents via ems with sob for several hours. She states she didn't feel good yesterday but had no sob. It began a few hours ago. She has had some chest discomfort with the sob. She has a history of COPD, CHF and heart disease. Quality of Pain: reports: fullness, tightness Severity in ED: reports: moderate Onset/Duration: reports: 1-3 hours ago Timing: reports: still present Context: denies: recent foreign travel, insect bite (possible tick), recent chemotherapy, multiple patients with similar complaints, recent URI, out of meds, sports/exercise, aspiration/choking, other Exposure: reports: unknown cause Cough Quality/Degree: reports: no cough Episode Frequency: occasional episodes Current Respiratory Medication Therapy: Initiated A/A nebulizer Modifying Factors: improves with: nothing Associated Symptoms: reports: denies symptoms Similar Symptoms Previously?: Yes Recently seen or treated by another doctor?: No Review of Systems - Adult - REVIEW OF SYSTEMS - ADULT Constitutional: reports: no symptoms reported Eyes: reports: no symptoms reported Ears, Nose, Mouth & Throat: reports: no symptoms reported Cardiovascular: reports: see HPI Respiratory: reports: see HPI Gastrointestinal: reports: no symptoms reported Genitourinary: reports: no symptoms reported Musculoskeletal: reports: no symptoms reported Integumentary: reports: no symptoms reported Neurological: reports: no symptoms reported Psychiatric: reports: no symptoms reported Endocrine: reports: no symptoms reported Past History - Adult - PAST MEDICAL HISTORY-ADULT Review of Records: reports: Old Records Reviewed, Nursing Assessment Review Physical Exam-General - PHYSICAL EXAM-ADULT Initial Vital Signs Reviewed: Yes - CONSTITUTIONAL General Appearance: severe distress - EYES Eyes: PERRL/EOMI, pink conjunctivae - HEAD, EARS, NOSE, MOUTH & THROAT HENMT: normocephalic/atraumatic, TMs normal, pharynx normal - NECK Neck: non-tender, full range of motion, supple - RESPIRATORY Respiratory: respiratory distress, accessory muscle use, crackles - CARDIOVASCULAR Cardiovascular: no murmur. negative: regular rate, rhythm - GASTROINTESTINAL (ABDOMEN) Abdominal Exam: normal bowel sounds, non tender, soft - LYMPHATIC Lymphatic: no adenopathy - MUSCULOSKELETAL Back Exam: normal inspection, no CVA tenderness Extremity: pedal edema (2+) - HEART Score HEART Score: History: Highly Suspicious HEART Score: ECG: Non-Specific Repolarization Disturbance/LBBB/PM HEART Score: Age: > or = 65 Years HEART Score: Risk Factors for Atherosclerotic Disease: > or = 3 Risk Factors or History of Atherosclerotic Disease HEART Score: Troponin: > or = 3x Normal Limit Total HEART Score:: 9 Progress - PLAN OF CARE/RESULTS Progress/Plan/Lab Results: Vital Signs - 8 hr 07/20/19 07:15 07/20/19 07:25 07/20/19 07:29 Temperature 98.1 F Pulse Rate 100 H 95 H Respiratory Rate 28 H 23 Blood Pressure 196/120 196/120 O2 Sat by Pulse Oximetry 98 99 99 07/20/19 08:04 07/20/19 08:27 07/20/19 08:32 Temperature Pulse Rate 83 78 76 Respiratory Rate 29 H 27 H 20 Blood Pressure 157/83 157/90 157/56 O2 Sat by Pulse Oximetry 100 95 100 07/20/19 08:58 07/20/19 09:03 Temperature Pulse Rate 82 93 H Respiratory Rate 26 H 33 H Blood Pressure 153/112 O2 Sat by Pulse Oximetry 100 07/20/19 07:34 Influenza Screen - Final Nasopharyngeal Laboratory Results - last 24 hr 07/20/19 07/20/19 07/20/19 07:38 09:15 09:49 WBC RBC Hgb Hct MCV MCH MCHC RDW Std Deviation Plt Count MPV Immature Gran % (Auto) Neut % (Auto) Lymph % (Auto) Chase % (Auto) Eos % (Auto) Baso % (Auto) Immature Gran # (Auto) Neut # (Auto) Lymph # (Auto) Chase # (Auto) Eos # (Auto) Baso # (Auto) PT INR PTT (Actin FS) Specimen Type ARTERIAL Sample Site R RADIAL pH 7.33 L pCO2 61 H* pO2 104 H HCO3 28.9 H Base Excess 5.1 H Oxyhemoglobin 95.4 ABG O2 Sat (Calculated) 13.3 L ABG O2 Saturation 98.0 ABG Carboxyhemoglobin 1.70 ABG Methemoglobin 1.0 Sudeep Test YES A-a O2 Difference 533.0 Total Hemoglobin 9.8 L Lactate 0.90 Liter Flow 15.0 Blood Gas Modality NRB FiO2 % 100.0 Sodium 141 Potassium 4.1 Chloride 107 Carbon Dioxide 27 Anion Gap 7 BUN 23 H Creatinine 1.2 H Estimated GFR/1.73 m2 43 BUN/Creatinine Ratio 19 Glucose 127 H Calculated Osmolality 287 Calcium 7.1 L Magnesium Total Bilirubin 0.30 AST 14 ALT 10 Alkaline Phosphatase 46 Creatine Kinase 37 Troponin T High Sens Kzl-F-Yfxmxvxjrfd Pept Total Protein 4.7 L Albumin 2.4 L Globulin 2.3 Albumin/Globulin Ratio 1.0 Plasma Lactate TSH Urine Source CLEAN CATCH Urine Color YELLOW Urine Turbidity CLEAR Urine pH 6.5 Ur Specific [place] 1.012 Urine Protein 300 A Ur Glucose (Stick) TRACE Ur Ketones (Stick) NEGATIVE Urine Blood NEGATIVE Urine Nitrite NEGATIVE Urine Bilirubin NEGATIVE Urobilinogen Dipstick NORMAL Urine Leukocytes NEGATIVE Urine WBC (Auto) <10 Urine RBC (Auto) <10 U Epithel Cells (Auto) <10 Urine Bacteria (Auto) NEGATIVE 07/20/19 07/20/19 07/20/19 09:49 09:49 09:49 WBC 7.86 RBC 3.09 L Hgb 7.6 L Hct 26.9 L MCV 87.1 MCH 24.6 L MCHC 28.3 L RDW Std Deviation 15.1 H Plt Count 299 MPV 10.3 Immature Gran % (Auto) 0.6 H Neut % (Auto) 69.2 Lymph % (Auto) 19.1 L Chase % (Auto) 8.5 Eos % (Auto) 1.7 Baso % (Auto) 0.9 H Immature Gran # (Auto) 0.05 H Neut # (Auto) 5.44 Lymph # (Auto) 1.50 Chase # (Auto) 0.67 H Eos # (Auto) 0.13 Baso # (Auto) 0.07 PT INR PTT (Actin FS) Specimen Type Sample Site pH pCO2 pO2 HCO3 Base Excess Oxyhemoglobin ABG O2 Sat (Calculated) ABG O2 Saturation ABG Carboxyhemoglobin ABG Methemoglobin Sudeep Test A-a O2 Difference Total Hemoglobin Lactate Liter Flow Blood Gas Modality FiO2 % Sodium Potassium Chloride Carbon Dioxide Anion Gap BUN Creatinine Estimated GFR/1.73 m2 BUN/Creatinine Ratio Glucose Calculated Osmolality Calcium Magnesium Total Bilirubin AST ALT Alkaline Phosphatase Creatine Kinase Troponin T High Sens Cwy-O-Tnhcpcfbbyp Pept 7643 H Total Protein Albumin Globulin Albumin/Globulin Ratio Plasma Lactate 0.7 TSH Urine Source Urine Color Urine Turbidity Urine pH Ur Specific [place] Urine Protein Ur Glucose (Stick) Ur Ketones (Stick) Urine Blood Urine Nitrite Urine Bilirubin Urobilinogen Dipstick Urine Leukocytes Urine WBC (Auto) Urine RBC (Auto) U Epithel Cells (Auto) Urine Bacteria (Auto) 07/20/19 07/20/1907/20/20 09:49 09:49 09:49 WBC RBC Hgb Hct MCV MCH MCHC RDW Std Deviation Plt Count MPV Immature Gran % (Auto) Neut % (Auto) Lymph % (Auto) Chase % (Auto) Eos % (Auto) Baso % (Auto) Immature Gran # (Auto) Neut # (Auto) Lymph # (Auto) Chase # (Auto) Eos # (Auto) Baso # (Auto) PT 13.3 INR 1.00 PTT (Actin FS) 26.5 Specimen Type Sample Site pH pCO2 pO2 HCO3 Base Excess Oxyhemoglobin ABG O2 Sat (Calculated) ABG O2 Saturation ABG Carboxyhemoglobin ABG Methemoglobin Sudeep Test A-a O2 Difference Total Hemoglobin Lactate Liter Flow Blood Gas Modality FiO2 % Sodium Potassium Chloride Carbon Dioxide Anion Gap BUN Creatinine Estimated GFR/1.73 m2 BUN/Creatinine Ratio Glucose Calculated Osmolality Calcium Magnesium 1.8 Total Bilirubin AST ALT Alkaline Phosphatase Creatine Kinase Troponin T High Sens 99 H Ojw-O-Ugmknofjtan Pept Total Protein Albumin Globulin Albumin/Globulin Ratio Plasma Lactate TSH Urine Source Urine Color Urine Turbidity Urine pH Ur Specific [place] Urine Protein Ur Glucose (Stick) Ur Ketones (Stick) Urine Blood Urine Nitrite Urine Bilirubin Urobilinogen Dipstick Urine Leukocytes Urine WBC (Auto) Urine RBC (Auto) U Epithel Cells (Auto) Urine Bacteria (Auto) 07/20/19 09:49 WBC RBC Hgb Hct MCV MCH MCHC RDW Std Deviation Plt Count MPV Immature Gran % (Auto) Neut % (Auto) Lymph % (Auto) [place] % (Auto) Eos % (Auto) Baso % (Auto) Immature Gran # (Auto) Neut # (Auto) Lymph # (Auto) Chase # (Auto) Eos # (Auto) Baso # (Auto) PT INR PTT (Actin FS) Specimen Type Sample Site pH pCO2 pO2 HCO3 Base Excess Oxyhemoglobin ABG O2 Sat (Calculated) ABG O2 Saturation ABG Carboxyhemoglobin ABG Methemoglobin Sudeep Test A-a O2 Difference Total Hemoglobin Lactate Liter Flow Blood Gas Modality FiO2 % Sodium Potassium Chloride Carbon Dioxide Anion Gap BUN Creatinine Estimated GFR/1.73 m2 BUN/Creatinine Ratio Glucose Calculated Osmolality Calcium Magnesium Total Bilirubin AST ALT Alkaline Phosphatase Creatine Kinase Troponin T High Sens Qeo-K-Jwkuvvxjooq Pept Total Protein Albumin Globulin Albumin/Globulin Ratio Plasma Lactate TSH 2.43 Urine Source Urine Color Urine Turbidity Urine pH Ur Specific [place] Urine Protein Ur Glucose (Stick) Ur Ketones (Stick) Urine Blood Urine Nitrite Urine Bilirubin Urobilinogen Dipstick Urine Leukocytes Urine WBC (Auto) Urine RBC (Auto) U Epithel Cells (Auto) Urine Bacteria (Auto) Orders Category Date Time Status Cardiac Monitoring DIRECTED Care 07/20/19 07:44 Active IV Insertion ORDERED Care 07/20/19 07:44 Active Notify MD of + Sepsis Screen NOW Care 07/20/19 07:44 Active Notify Physician As Ordered Care 07/20/19 07:44 Active CHEST-PORTABLE [RAD] Stat Exams 07/20/19 07:27 Completed ABG [RESP] Routine Lab 07/20/19 07:38 Completed BLOOD CULTURE [BLDCUL] Stat Lab 07/20/19 07:39 Received CBC WITH ELECTRONIC DIFF [HEME] Stat Lab 07/20/19 09:49 Completed CK PROFILE [SP CHEM] Stat Lab 07/20/19 09:49 Completed COMPREHENSIVE METABOLIC PANEL [CHEM] Stat Lab 07/20/19 09:49 Completed INFLUENZA SCREEN A/B Stat Lab 07/20/19 07:34 Completed LACTATE, PLASMA [CHEM] Lab 07/20/19 10:45 Uncollected LACTATE, PLASMA [CHEM] Lab 07/20/19 13:45 Uncollected LACTATE, PLASMA [CHEM] Q3H Lab 07/20/19 09:49 Completed MAGNESIUM [CHEM] Stat Lab 07/20/19 09:49 Completed PRO B-NATRIURETIC PEPTIDE Stat Lab 07/20/19 09:49 Completed PROTIME WITH INR [COAG] Stat Lab 07/20/19 09:49 Completed PTT [COAG] Stat Lab 07/20/19 09:49 Completed TROPONIN T HIGH SENSITIVITY Stat Lab 07/20/19 09:49 Completed TSH Stat Lab 07/20/19 09:49 Completed URINALYSIS W/POSS RFLX CULT [URINALYSIS] Stat Lab 07/20/19 09:15 Completed 0.9% Sodium Chloride Inj [Ns] 1,000 ml Med 07/20/19 07:31 Active IV 85 mls/hr Albuterol 2.5MG/Ipratrop 0.5MG [Duoneb (A & A)] Med 07/20/19 07:31 Discontinued 3 ml INH NOW ONE Furosemide [Lasix] Med 07/20/19 08:14 Discontinued 40 mg IV NOW ONE Aerosol Treatments Routine Oth 07/20/19 07:32 Completed Aerosol Treatments Stat Oth 07/20/19 07:32 Completed BIPAP Stat Oth 07/20/19 07:40 Active Oxygen Device Stat Oth 07/20/19 07:44 Completed EKG [EKG] Stat Ther 07/20/19 07:43 Draft Result Diagrams: 07/20/19 09:49 07/20/19 09:49 - EKG 1 Time of EKG reading by physician:: 07:35 EKG Read and Signed by:: Sundeep Thomas EKG Interpretation (*Must complete 3 of following elements*): Abnormal Rate: 96 Rhythm: atrial fibrilation [place]: normal QRS: normal ST Wave: normal (no prior) - CONSULTS/PCP/HOSPITALIST Notification #1 *Consult/PCP/Hospitalist*: Amira ONEIL Time Discussed: 11:46 Consult Disposition: Will see in ED Departure - Departure Date of Disposition Decision: 07/20/19 Time of Disposition Decision: 11:47 DIAGNOSIS: CHF (congestive heart failure), Respiratory failure Disposition: ADMITTED INPATIENT 09 Certified Medical Emergency: Emergent Condition: Serious Referrals and Follow-Ups: Paola Crooks [Primary Care Provider] - - Critical Care Note This patient required my direct & personal management of CC.: Yes Total Time (mins): 63 Critical Care Statement: This patient required my direct personal management to treat or rule out processes, the absence of which, could potentiallly result in sudden, clinically significant life or limb threatening deterioration. Attestation - Physician/ MAR Attestation Patient care was provided by Advanced Practice Provider:: No The physician spent face to face time with patient:: Yes Advanced Practice Provider documentation review:: Supervising physician onsite and consulted in the evaluation and care of this patient. The physician did have a face to face encounter with the patient.
[2019-07-20 07:48] LABS: ALLEN TEST YES; BE 5.1 mmoll (-3.0-3.0); BLOOD TYPE ARTERIAL; HCO3-(ACT) 28.9 mmoll (20.0-26.0); O2(CT) 13.3 mL/dL (15.0-23.0); O2HB 95.4 % (95.0-99.0); PCO2(98.6) 61 mmHg (35-45); PO2(98.6) 104 mmHg (60-100); SAMPLE BLOOD; THB 9.8 g/dL (11.5-17.4); pH(98.6) 7.33 (7.35-7.45)
[2019-07-20 07:49] LABS: MODALITY NRB
--- NOTE | 2019-07-20 08:00 | Diag Imaging Result Doc PS360 ---
EXAM: CHEST-PORTABLE 07/20/2019 HISTORY: sob TECHNIQUE: AP portable upright at 0743 COMMENT: There is increased pleural fluid bilaterally particularly on the left compared to 04/19/2019. There is increased pulmonary vascularity. There is interstitial pulmonary edema and enlargement of the cardiomediastinal silhouette. IMPRESSION: Pulmonary edema and pleural effusions. Cardiomegaly. Electronically signed by Loyd Dallas 07/20/2019 7:58 AM
[2019-07-20] MEDS ORDERED: LASIX IV ONE (08:14)
--- NOTE | 2019-07-20 08:56 | EKG Report ---
Test Performed on : 07/20/2019 07:31:24 AM Test Reason : SOB Blood Pressure : / mmHG Vent. Rate : 096 BPM Atrial Rate : 105 BPM P-R Int : 000 ms QRS Dur : 058 ms QT Int : 288 ms P-R-T Axes : 000 000 194 degrees QTc Int : 363 ms Atrial fibrillation. Moderate voltage criteria for LVH, may be normal variant ST & T wave abnormality, consider inferolateral ischemia Abnormal ECG When compared with ECG of 16-APR-2019 11:47, Vent. rate has increased BY 44 BPM T wave inversion no longer evident in Anterior leads QT has shortened Unconfirmed Result
[2019-07-20 09:25] LABS: URINE SOURCE CLEAN CATCH
[2019-07-20 09:29] LABS: BILIRUBIN URINE NEGATIVE (NEGATIVE); BLOOD URINE NEGATIVE (NEGATIVE); COLOR YELLOW; GLUCOSE URINE TRACE mg/dL (NEGATIVE); KETONE URINE NEGATIVE (NEGATIVE); LEUKOCYTES URINE NEGATIVE (NEGATIVE); NITRITE URINE NEGATIVE (NEGATIVE); PH URINE 6.5; PROTEIN URINE 300 mg/dL (NEGATIVE); SP GRAVITY URINE 1.012; TURBIDITY URINE CLEAR (CLEAR); UROBILINOGEN URINE NORMAL (NORMAL)
[2019-07-20 09:30] LABS: UR EPITHELIAL CELLS <10 /HPF (<10); URINE BACTERIA NEGATIVE /HPF; URINE RBC <10 /HPF (<10); URINE WBC <10 /HPF (<10)
[2019-07-20 10:12] LABS: PROTIME 13.3 Seconds (11.0-16.0)
[2019-07-20 10:13] LABS: PTT 26.5 Seconds (22.3-41.8)
[2019-07-20 10:14] LABS: BASO# 0.07 X1000 (0.0-0.2); BASO% 0.9 % (0.0-0.8); EOS# 0.13 X1000 (0.0-0.7); EOS% 1.7 % (0.0-10.0); HEMATOCRIT 26.9 % (37.0-47.0); HEMOGLOBIN 7.6 g/dL (12.0-16.0); IMM GRAN# 0.05 X1000 (0.0-0.04); IMM GRAN% 0.6 % (0.0-0.5); LYMPH% 19.1 % (20.5-51.1); MCH 24.6 PG (27-31); MCHC 28.3 g/dL (33-37); MCV 87.1 FL (81-99); MONO# 0.67 X1000 (0.11-0.59); MONO% 8.5 % (1.7-9.3); MPV 10.3 FL (7.4-10.4); NEUT# 5.44 X1000 (1.4-6.5); NEUT% 69.2 % (42.2-75.2); PLT 299 X1000 (130-400); RBC 3.09 XMIL (4.2-5.4); RDW 15.1 % (11.5-14.5); WBC 7.86 X1000 (4.8-10.8)
[2019-07-20 10:20] LABS: ALBUMIN 2.4 g/dL (3.5-5.0); CALCIUM 7.1 mg/dL (8.8-10.2); CREATININE 1.2 mg/dL (0.5-0.9); POTASSIUM 4.1 mmol/L (3.5-5.1); TOTAL BILIRUBIN 0.3 mg/dL (0.20-1.00); TOTAL PROTEIN 4.7 g/dL (6.3-8.3)
[2019-07-20] MEDS ORDERED: ZOFRAN IV PRN (12:05)
[2019-07-20] MEDS ORDERED: RESTORIL PO PRN (12:06)
[2019-07-20] MEDS ORDERED: NORCO-7.5 PO PRN (12:06)
[2019-07-20] MEDS: ASPIRIN PO SCH (12:32)
[2019-07-20] MEDS: SOLU-MEDROL IV SCH ×2 (12:32→21:03)
[2019-07-20] MEDS: ROCEPHIN 1 GM in NS 50 ML IV SCH (12:32)
--- NOTE | 2019-07-20 12:44 | HISTORY AND PHYSICAL ---
This is an 83-year-old, lives in [place]. Her son checks on her pretty frequently and this morning she called and she was just really short of breath, trouble moving air and brought her to the emergency room. She is very tight, says she is much better now. She has had some BiPAP and breathing treatments. She does not report any fever or chills. She has had a little bit of pleuritic pain on the left side, but no squeezing chest pain. No change in her medicines other than she did take her medicines yesterday according to the son's report. PAST MEDICAL HISTORY: 1. Hypertension. 2. COPD. 3. Chronic hypoxic respiratory failure. She is on oxygen at 3.5 L per nasal cannula. 4. Congestive heart failure. 5. Hypertension. 6. Chronic kidney disease. 7. History of atrial fibrillation. 8. Psoriasis. 9. Anxiety. 10. Depression. PAST SURGICAL HISTORY: Status post hysterectomy. SOCIAL HISTORY: Patient is a former smoker. No history of alcohol or illicit drugs. She lives alone, but her son checks on her pretty often. FAMILY HISTORY: Positive for coronary artery disease in mother and father. REVIEW OF SYSTEMS: No report of weight gain or loss or fever or chills.HEENT: No change in vision or hearing acuity. Respiratory: As above. Cardiovascular: No chest pain or tachy palpitation. Gastrointestinal/Genitourinary: No gross hematuria, dysuria, or change in bowel or bladder performance. Immunologic/hematologic: No significant history. Musculoskeletal/Neurologic: No focal changes or complaints. PHYSICAL EXAMINATION: GENERAL: In the emergency room, son was at the bedside. VITAL SIGNS: She is on BiPAP. Afebrile. Temperature 98.1 degrees, pulse 93, respirations 33, blood pressure 153/112. HEENT: Pupils are equal and round. LUNGS: Diminished breath sounds both bases but otherwise clear anterolateral. She did have pedal edema the right more than the left and it is really confined more to the foot and distal leg. CARDIOVASCULAR: Regular rhythm and rate without murmur or S3. ABDOMEN: Soft. SKIN: Warm and dry. White count 7860, hematocrit 26, platelet count 299,000. Sodium 141, potassium 4.1, chloride 27, BUN 23, creatinine 1.2, calcium is 7.1. AST is 14, ALT is 10, alkaline phosphatase 46. ProBNP 7643. Chest x-ray, pulmonary edema and pleural effusions, cardiomegaly. ASSESSMENT AND PLAN: Underlying chronic obstructive pulmonary disease with congestive heart failure. She has congestive heart failure with reduced ejection fraction, I believe. Looking back at the last echocardiogram that was on 04/11/2019, limited quality, no evidence of valvular dysfunction. Mild to moderate concentric left ventricular hypertrophy and ejection fraction of 70% so this must be predominantly congestive heart failure with normal ejection fraction, diastolic dysfunction. So we will use BiPAP as needed. I gave her bronchodilators, put her on a steroid inhaler and we will try and diurese and improve her cor pulmonale, pulmonary hypertension, diastolic dysfunction. She is already on Symbicort at home 160/4.5 inhaler, she takes 2 puffs twice a day. We will continue that. I think she would benefit from some steroids. We will put her on Solu-Medrol. We will give her 60 mg IV acute q.8 hours. She takes a Humira Pen. She does have a history of psoriasis and she has a history of chronic kidney disease as well as atrial fibrillation, so we will continue her home medications. She is on aspirin 325 mg a day, getting diltiazem CD 120 mg daily, Lexapro 10 mg a day. We will give her Lasix 40 mg IV and we will give that q.12, Cozaar 25 mg p.o. b.i.d. We will hold her prednisone since we are giving her Solu- Medrol. We will continue her Restoril and trazodone. She was taking 150 mg of trazodone at night and 15 mg at bedtime of Restoril. On review of her labs, she has an anemia, appears to be normocytic anemia. Probably would be worthwhile to check iron studies. We will get serum iron, total iron binding capacity, and ferritin. We will check a B12, folate, check a T4, TSH. With underlying COPD, I will put her on an antibiotic just to cover for bronchitic organisms. We will give her ceftriaxone 1 g now and then q.24 hours. cc: Sudeep Villarreal MD
[2019-07-20] MEDS: LEXAPRO PO SCH (13:43)
[2019-07-20] MEDS: CARDIZEM CD PO SCH (13:43)
[2019-07-20] MEDS: DUONEB (A & A) INH SCH ×3 (17:05→22:48)
[2019-07-20] MEDS: PULMICORT INH SCH (20:08)
--- NOTE | 2019-07-20 20:44 | EKG Report ---
Test Performed on : 07/20/2019 8:34:13 PM Test Reason : bradycardia Blood Pressure : / mmHG Vent. Rate : 055 BPM Atrial Rate : 027 BPM P-R Int : 000 ms QRS Dur : 066 ms QT Int : 456 ms P-R-T Axes : 000 -07 202 degrees QTc Int : 436 ms Undetermined rhythm Left ventricular hypertrophy with repolarization abnormality Abnormal ECG When compared with ECG of 20-JUL-2019 20:22, (Unconfirmed) Current undetermined rhythm precludes rhythm comparison, needs review QRS duration has decreased Minimal criteria for Anterior infarct are no longer present Criteria for Inferior infarct are no longer present ST no longer elevated in Lateral leads QT has shortened Confirmed by Mauricio HAMLIN, Marques Fowler ([id number]) on 07/21/2019 10:26:29 PM
[2019-07-20] MEDS: COZAAR PO SCH (21:04)
[2019-07-20] MEDS: DESYREL PO SCH (21:05)
[2019-07-20] MEDS: LASIX IV SCH (21:08)
[2019-07-21] MEDS: DUONEB (A & A) INH SCH ×6 (02:48→22:53)
[2019-07-21] MEDS: SOLU-MEDROL IV SCH ×3 (05:01→20:31)
[2019-07-21 06:54] LABS: HEMOGLOBIN A1C 5.6 % (4.8-6.0)
[2019-07-21 07:30] LABS: BASO# 0.01 X1000 (0.0-0.2); BASO% 0.2 % (0.0-0.8); HEMATOCRIT 30.9 % (37.0-47.0); HEMOGLOBIN 8.9 g/dL (12.0-16.0); IMM GRAN# 0.02 X1000 (0.0-0.04); IMM GRAN% 0.4 % (0.0-0.5); LYMPH# 0.73 X1000 (1.2-3.4); LYMPH% 14.5 % (20.5-51.1); MCH 24.8 PG (27-31); MCHC 28.8 g/dL (33-37); MCV 86.1 FL (81-99); MPV 11.6 FL (7.4-10.4); NEUT# 4.18 X1000 (1.4-6.5); NEUT% 82.9 % (42.2-75.2); PLT 323 X1000 (130-400); RBC 3.59 XMIL (4.2-5.4); RDW 15.2 % (11.5-14.5); WBC 5.04 X1000 (4.8-10.8)
[2019-07-21 07:55] LABS: FREE T4 0.86 ng/dL (0.93-1.70); TSH 2.4 uIUmL (0.27-4.20)
[2019-07-21] MEDS: CARDIZEM CD PO SCH (08:04)
[2019-07-21] MEDS: LEXAPRO PO SCH (08:04)
[2019-07-21] MEDS: LASIX IV SCH ×2 (08:04→20:32)
[2019-07-21] MEDS: ASPIRIN PO SCH (08:04)
[2019-07-21 08:24] LABS: ALB/GLOB RATIO 1.1; ALBUMIN 2.8 g/dL (3.5-5.0); CALCIUM 8.8 mg/dL (8.8-10.2); CREATININE 1.5 mg/dL (0.5-0.9); TOTAL BILIRUBIN 0.18 mg/dL (0.20-1.00); TOTAL PROTEIN 5.3 g/dL (6.3-8.3)
[2019-07-21] MEDS: PULMICORT INH SCH ×2 (08:42→19:30)
[2019-07-21] MEDS: COZAAR PO SCH ×2 (09:50→20:32)
[2019-07-21] MEDS: ROCEPHIN 1 GM in NS 50 ML IV SCH (12:02)
--- NOTE | 2019-07-21 12:51 | PROGRESS NOTE ---
DATE: 07/21/2019 SUBJECTIVE: Ms. Quintero is breathing better. She is on the BiPAP. She just got put on it. She is doing pretty well, and has been off the BiPAP most of the morning. She feels like she is breathing better, feels better. Her son was at the bedside. Her heart rate was sustaining in the 40s, but good perfusion, good blood pressure, asymptomatic. EKG was ordered for bradycardia. PHYSICAL EXAMINATION: Vital Signs: Today, remains afebrile, temperature 96.8 degrees, pulse 76, respirations 24, blood pressure 171/38. HEENT: Pupils are equal and round. Lungs: Clear in all lung warren. Cardiovascular: Regular rhythm and rate without murmur or S3. Urine output was 1000 mL. IMAGING: Chest x-ray from yesterday showed some pulmonary edema and pleural effusions. ASSESSMENT AND PLAN: 1. Underlying chronic obstructive pulmonary disease with some pulmonary venous hypertension. She has congestive heart failure with reduced ejection fraction (that was by report). Echocardiogram showed left ventricular hypertrophy and ejection fraction at 70%, so this may all be diastolic dysfunction or congestive heart failure with normal ejection fraction. She is doing better, moving air better. Continue bronchodilators and steroids and the bilevel positive airway pressure as needed. 2. Hypertension. Blood pressure, will follow and looks appropriate. 3. Chronic kidney disease. 4. History of atrial fibrillation. 5. History of psoriasis. 6. History of anxiety and depression. LABORATORY DATA: Today, hematocrit 30, hemoglobin 8.9, MCV was 86, so really a normocytic anemia. Sodium 144, potassium 5.0, chloride 103, BUN 29, creatinine 1.5. Hemoglobin A1c was 5.6. She is low in her iron and B12. She was low on folate, so I am going to give her some folate, and may benefit from an iron infusion. Otherwise, I do not see any change. REVIEW OF ORDERS: She is on Cozaar 25 mg b.i.d., ceftriaxone 1 gram IV every 24 hours. We gave her a dose of Lasix. We are giving it 40 mg IV every 12 hours, on Pulmicort 0.5 mg inhalation b.i.d., aspirin 325 mg a day, Lexapro 10 mg a day. cc: Sudeep Villarreal MD
[2019-07-21] MEDS: ICAR-C PO SCH ×2 (14:23→20:31)
[2019-07-21] MEDS: FOLIC ACID PO SCH ×2 (14:23→20:32)
--- NOTE | 2019-07-21 18:14 | Diag Imaging Result Doc PS360 ---
EXAM: CT HEAD W/O CONTRAST 07/21/2019 HISTORY: Acute onset of facial drooping and confusion TECHNIQUE: This exam was performed using automated exposure control, adjustment of mA or kV according to patient size, and/or use of iterative reconstruction technique. COMMENT: The current study is compared with 04/13/2019. There is generalized motion artifact. There are patchy periventricular white matter lucencies. The calvarium is intact. There are no air-fluid levels in the paranasal sinuses. Compared to 04/13/2019 the appearance the brain has not changed appreciably. IMPRESSION: No evidence of acute intracranial disease. Further evaluation with MRI may be desirable. Electronically signed by Loyd Dallas 07/21/2019 6:11 PM
[2019-07-22] MEDS: DUONEB (A & A) INH SCH ×5 (03:33→19:50)
[2019-07-22] MEDS: SOLU-MEDROL IV SCH ×3 (04:54→20:24)
[2019-07-22 07:19] LABS: AGAP 12; ALB/GLOB RATIO 1.2; ALBUMIN 3.1 g/dL (3.5-5.0); ALKALINE PHOSPHATASE 52 U/L (32-104); BUN 44 mg/dL (8-22); CHLORIDE 100 mmol/L (98-107); COSMO 297; CREATININE 1.9 mg/dL (0.5-0.9); ESTIMATED GFR 25; GLUCOSE 207 mg/dL (70-104); GOT 17 U/L (10-30); GPT 12 U/L (10-36); SODIUM 140 mmol/L (136-145); TCO2 28 mmol/L (25-35); TOTAL BILIRUBIN < 0.15 mg/dL (0.20-1.00); TOTAL PROTEIN 5.6 g/dL (6.3-8.3)
[2019-07-22 07:29] LABS: HEMATOCRIT 30.2 % (37.0-47.0); HEMOGLOBIN 8.7 g/dL (12.0-16.0); IMM GRAN# 0.05 X1000 (0.0-0.04); IMM GRAN% 0.4 % (0.0-0.5); LYMPH# 0.88 X1000 (1.2-3.4); LYMPH% 7.4 % (20.5-51.1); MCH 24.3 PG (27-31); MCHC 28.8 g/dL (33-37); MCV 84.4 FL (81-99); MONO# 0.39 X1000 (0.11-0.59); MONO% 3.3 % (1.7-9.3); MPV 11.3 FL (7.4-10.4); NEUT# 10.51 X1000 (1.4-6.5); NEUT% 88.9 % (42.2-75.2); PLT 417 X1000 (130-400); RBC 3.58 XMIL (4.2-5.4); RDW 15.5 % (11.5-14.5); WBC 11.83 X1000 (4.8-10.8)
[2019-07-22] MEDS: PULMICORT INH SCH ×2 (08:09→19:50)
[2019-07-22] MEDS: CARDIZEM CD PO SCH (08:56)
[2019-07-22] MEDS: ICAR-C PO SCH ×2 (08:56→20:20)
[2019-07-22] MEDS: COZAAR PO SCH ×2 (08:56→20:20)
[2019-07-22] MEDS: LEXAPRO PO SCH (08:56)
[2019-07-22] MEDS: FOLIC ACID PO SCH ×2 (08:56→20:21)
[2019-07-22] MEDS: ASPIRIN PO SCH (08:56)
[2019-07-22] MEDS: LASIX IV SCH ×2 (08:57→20:21)
--- NOTE | 2019-07-22 09:36 | Diag Imaging Result Doc PS360 ---
EXAM: CHEST-PORTABLE HISTORY: copd TECHNIQUE: Single view COMPARISON: 07/20/2019 FINDINGS: There are [id number] sized bilateral pleural effusions. The heart is enlarged and there is pulmonary edema. The pulmonary edema is less pronounced. There is bibasilar atelectasis. IMPRESSION: Mild interval improvement Electronically signed by Jay Laura 07/22/2019 9:33 AM
[2019-07-22 10:10] LABS: HYPOCHROM 2+; LYMPHS 10 % (21-51); MONO 2 % (1-9); SEGS 88 % (42-75)
[2019-07-22] MEDS: ROCEPHIN 1 GM in NS 50 ML IV SCH (12:04)
--- NOTE | 2019-07-22 13:11 | PROGRESS NOTE ---
DATE: 07/22/2019 SUBJECTIVE: Ms. Quintero had an episode yesterday late afternoon, where she had, I think, right facial drooping and more trouble swallowing, some confusion. This seemed to resolve. We gave her some breathing treatments, and she did get a CT of her head without contrast. No evidence of acute intracranial disease. She did not have any more trouble throughout the night. She remains afebrile, temperature 97.8 degrees, pulse 75, respirations 17, blood pressure 164/54. Urine output was 2500 mL. ASSESSMENT AND PLAN: 1. Underlying chronic obstructive pulmonary disease with some pulmonary venous hypertension, congestive heart failure, reduced ejection fraction. Echocardiogram showed left ventricular hypertrophy with ejection fraction of 70%, so she does not have a reduction in ejection fraction, some diastolic dysfunction. She seems to be doing better. 2. Hypertension. Blood pressures appear well controlled. 3. Chronic kidney disease. 4. History of atrial fibrillation. 5. History of cirrhosis. 6. History of anxiety and depression. She is on an aspirin, and we have her on Cardizem CD 120 mg daily. I think her episode yesterday may have been consistent with a transient ischemic attack, and we may need to consider anticoagulation. Will continue her aspirin, and consider going on anticoagulant. Her breathing is better. cc: Sudeep Villarreal MD
--- NOTE | 2019-07-22 17:33 | PROGRESS NOTE ---
DATE: 07/22/2019 ADDENDUM: She had a spell yesterday evening. I discussed with her son. I think it was a transient ischemic episode, but he says she has had these before. They have contemplated starting anticoagulant because of her atrial fib, but he is concerned about her risk for fall and he still would not like to start anticoagulant. She is on aspirin and I will continue her aspirin. She has done much better today. Breathing is better. PLAN: The plan is to continue to try and get a little off for her pulmonary venous hypertension and make sure she is strong enough to go home. She lives at home by herself, but son lives across the street, so we will make sure we incorporate some physical therapy and occupational therapy. cc: Sudeep Villarreal MD
[2019-07-22] MEDS: DESYREL PO SCH (20:21)
[2019-07-23] MEDS: DUONEB (A & A) INH SCH ×7 (03:40→23:59)
[2019-07-23] MEDS: SOLU-MEDROL IV SCH ×2 (05:46→12:56)
[2019-07-23 06:30] LABS: BASO# 0.01 X1000 (0.0-0.2); BASO% 0.1 % (0.0-0.8); HEMATOCRIT 28.5 % (37.0-47.0); HEMOGLOBIN 8.3 g/dL (12.0-16.0); IMM GRAN# 0.07 X1000 (0.0-0.04); IMM GRAN% 0.8 % (0.0-0.5); LYMPH# 0.71 X1000 (1.2-3.4); LYMPH% 8.6 % (20.5-51.1); MCH 24.6 PG (27-31); MCHC 29.1 g/dL (33-37); MCV 84.3 FL (81-99); MONO# 0.34 X1000 (0.11-0.59); MONO% 4.1 % (1.7-9.3); MPV 11.3 FL (7.4-10.4); NEUT# 7.16 X1000 (1.4-6.5); NEUT% 86.4 % (42.2-75.2); PLT 340 X1000 (130-400); RBC 3.38 XMIL (4.2-5.4); RDW 15.4 % (11.5-14.5); WBC 8.29 X1000 (4.8-10.8)
[2019-07-23 06:46] LABS: AGAP 12; ALB/GLOB RATIO 1.3; ALBUMIN 2.8 g/dL (3.5-5.0); ALKALINE PHOSPHATASE 47 U/L (32-104); BUN 49 mg/dL (8-22); CALCIUM 8.5 mg/dL (8.8-10.2); CHLORIDE 100 mmol/L (98-107); COSMO 297; CREATININE 1.7 mg/dL (0.5-0.9); ESTIMATED GFR 29; GLUCOSE 221 mg/dL (70-104); GOT 14 U/L (10-30); GPT 11 U/L (10-36); POTASSIUM 4.3 mmol/L (3.5-5.1); SODIUM 139 mmol/L (136-145); TCO2 27 mmol/L (25-35); TOTAL BILIRUBIN < 0.15 mg/dL (0.20-1.00); TOTAL PROTEIN 4.9 g/dL (6.3-8.3)
[2019-07-23 07:11] LABS: LYMPHS 5 % (21-51); MONO 2 % (1-9); SEGS 93 % (42-75)
[2019-07-23] MEDS: PULMICORT INH SCH ×2 (07:33→20:30)
[2019-07-23] MEDS: FOLIC ACID PO SCH ×2 (08:35→21:53)
[2019-07-23] MEDS: LASIX IV SCH ×2 (08:35→21:54)
[2019-07-23] MEDS: ICAR-C PO SCH ×2 (08:35→21:54)
[2019-07-23] MEDS: COZAAR PO SCH ×2 (08:35→21:53)
[2019-07-23] MEDS: LEXAPRO PO SCH (08:36)
[2019-07-23] MEDS: ASPIRIN PO SCH (08:36)
[2019-07-23] MEDS: CARDIZEM CD PO SCH (08:36)
[2019-07-23] MEDS ORDERED: COREG PO ONE (12:14)
[2019-07-23] MEDS ORDERED: VENOFER 200 MG in NS 100 ML IV ONE (12:15)
[2019-07-23] MEDS ORDERED: ALDACTONE PO ONE (12:15)
--- NOTE | 2019-07-23 12:46 | PROGRESS NOTE ---
DATE: 07/23/2019 SUBJECTIVE: Today Ms. Quintero knee refers to be doing well. She was sitting up in a chair. No new complaints. She is back to 3 L of supplemental oxygen. OBJECTIVE: General: Ms. Quintero is an 83-year-old elderly female. She was sitting up in a chair, no distress. HEENT: Mucosa is pink and moist. Anicteric, acyanotic. Neck: Supple. Chest: Good air entry bilateral. No crepitations. No rhonchi. Cardiovascular: Irregularly irregular but rate controlled. No murmurs. Abdomen: Soft, distended but nontender. Extremities: No pedal edema. Distal pulses present. Central nervous system: Patient is awake, alert, and oriented. LABORATORY DATA: WBC is down to 8.29, hemoglobin is 8.3, platelet count of 240,000. Chemistry is also reviewed, completely unremarkable. Patient has a ferritin of 54 and percent saturation of 6, which is consistent with severe iron deficiency. Folate is also remarkably low. Chemistry is reviewed. Creatinine is down to 1.7. The patient's intake and output, urine output was 1010. Patient is currently negative balance. IMAGING: A chest x-ray yesterday showed small to moderate sized bilateral pleural effusions. ASSESSMENT: 1. Acute on chronic hypoxemic respiratory failure. Patient was on a non-rebreather, has been transitioned now to 3 L to nasal cannula. She is currently on 3 to 4 and she is saturating 96%. 2. Acute on chronic diastolic heart failure. The patient continues to be on diuretic therapy. She is currently negative balance. 3. Bilateral pulmonary edema with pleural effusion secondary to diastolic heart failure. 4. Chronic kidney disease stage 3B to 4, presumably with underlying cardiorenal syndrome. 5. Severe uncontrolled hypertension with possibly hypertensive urgency/emergency on admission. We will continue titrating blood pressure. 6. History of chronic obstructive pulmonary disease, questionable exacerbation on admission. 7. Chronic atrial fibrillation, currently rate controlled. 8. Electrolyte and mineral deficiency (folate and iron deficiency). We will continue to replace. DISPOSITION: In general, I think Ms. Quintero is doing well. Blood pressures will continue to be titrated for better control. We will continue with the management for the COPD exacerbation. We will re-evaluate her in the morning. I think Ms. Quintero is a potential discharge tomorrow if she continues to be medically stable. cc: Otis Ware MD
[2019-07-23] MEDS: ROCEPHIN 1 GM in NS 50 ML IV SCH (12:57)
[2019-07-23] MEDS: COREG PO SCH (21:53)
[2019-07-23] MEDS: DESYREL PO SCH (21:54)
[2019-07-24] MEDS: SOLU-MEDROL IV SCH ×2 (00:04→13:44)
[2019-07-24] MEDS: DUONEB (A & A) INH SCH ×4 (03:55→15:42)
[2019-07-24] MEDS: PULMICORT INH SCH (07:43)
[2019-07-24 07:46] LABS: BASO# 0.01 X1000 (0.0-0.2); BASO% 0.1 % (0.0-0.8); HEMATOCRIT 30.2 % (37.0-47.0); HEMOGLOBIN 8.5 g/dL (12.0-16.0); IMM GRAN% 1.3 % (0.0-0.5); LYMPH# 0.87 X1000 (1.2-3.4); LYMPH% 11.6 % (20.5-51.1); MCH 24.2 PG (27-31); MCHC 28.1 g/dL (33-37); MONO# 0.43 X1000 (0.11-0.59); MONO% 5.7 % (1.7-9.3); MPV 10.8 FL (7.4-10.4); NEUT% 81.3 % (42.2-75.2); PLT 354 X1000 (130-400); RBC 3.51 XMIL (4.2-5.4); RDW 15.5 % (11.5-14.5); WBC 7.51 X1000 (4.8-10.8)
[2019-07-24 08:40] LABS: AGAP 7; ALB/GLOB RATIO 1.4; ALBUMIN 2.8 g/dL (3.5-5.0); ALKALINE PHOSPHATASE 45 U/L (32-104); BUN 55 mg/dL (8-22); CHLORIDE 104 mmol/L (98-107); COSMO 305; CREATININE 1.8 mg/dL (0.5-0.9); ESTIMATED GFR 27; GLUCOSE 180 mg/dL (70-104); GOT 13 U/L (10-30); GPT 12 U/L (10-36); SODIUM 143 mmol/L (136-145); TCO2 32 mmol/L (25-35); TOTAL BILIRUBIN < 0.15 mg/dL (0.20-1.00); TOTAL PROTEIN 4.8 g/dL (6.3-8.3)
[2019-07-24 08:41] LABS: POTASSIUM 5.2 mmol/L (3.5-5.1)
[2019-07-24] MEDS ORDERED: LOKELMA POWDER PACKET PO ONE (08:51)
[2019-07-24] MEDS ORDERED: HYDROCHLOROTHIAZIDE PO SCH (09:00)
[2019-07-24] MEDS ORDERED: ALDACTONE PO SCH (09:00)
[2019-07-24] MEDS: ASPIRIN PO SCH (09:06)
[2019-07-24] MEDS: FOLIC ACID PO SCH (09:06)
[2019-07-24] MEDS: ICAR-C PO SCH (09:07)
[2019-07-24] MEDS: COZAAR PO SCH (09:07)
[2019-07-24] MEDS: CARDIZEM CD PO SCH (09:08)
[2019-07-24] MEDS: LEXAPRO PO SCH (09:08)
[2019-07-24] MEDS: COREG PO SCH (09:08)
[2019-07-24] MEDS: ROCEPHIN 1 GM in NS 50 ML IV SCH (13:43)
[2019-07-24 16:02] VITALS: BP 192/56
--- NOTE | 2019-07-25 15:18 | DISCHARGE SUMMARY ---
ADMISSION DATE: 07/20/2019 DISCHARGE DATE: 07/24/2019 DISPOSITION: Home. FOLLOW-UP: Dr. Paola Crooks. [facility]. CONSULTATION DURING THIS ADMISSION: None. INVASIVE PROCEDURES THIS ADMISSION: None. IMAGING STUDIES OF SIGNIFICANCE: 1. A chest x-ray did show pulmonary edema and pleural effusion, cardiomegaly. 2. CT scan of the head showed no evidence of acute intracranial disease. 3. A repeat chest x-ray showed mild interval improvement. ADMISSION DIAGNOSIS: Shortness of breath due to congestive heart failure and chronic obstructive pulmonary disease. DIAGNOSES AT THE TIME OF DISCHARGE: 1. Acute on chronic hypoxemic respiratory failure improved. 2. Acute on chronic diastolic heart failure. 3. Bilateral pulmonary edema with pleural effusions secondary to diastolic heart failure. 4. Chronic kidney disease stage 3B to 4. 5. Severe uncontrolled hypertension with possible hypertensive urgency/emergency on admission improved. 6. History of chronic obstructive pulmonary disease questionable exacerbation on admission. 7. Chronic atrial fibrillation, currently rate controlled. 8. Folate and iron deficiency replaced. DISCHARGE MEDICATIONS: 1. Albuterol nebs. 2. Symbicort Puffs b.i.d. 3. Lexapro 10 mg p.o. daily. 4. Lasix 40 mg p.o. daily. 5. Prednisone 5 mg p.o. daily. 6. Humira use as needed. 7. Aspirin 325 p.o. daily. 8. Ergocalciferol 50,000 subcu every 7 days. 9. Diltiazem 120 p.o. daily. 10. Losartan 25 mg b.i.d. 11. Retsof. 12. Restoril 50 mg p.o. at bedtime p.r.n. 13. Trazodone 150 p.o. at bedtime. 14. Carvedilol 6.25 b.i.d. 15. Folic acid 1 mg b.i.d. 16. Iron 1 tablet b.i.d. 17. Hydrochlorothiazide 12.5 p.o. daily. PRESENTING COMPLAINT: Shortness of breath. HISTORY OF PRESENTING ILLNESS: Ms. Quintero is an 83-year-old elderly female who is known to have multiple comorbidities including COPD, chronic hypoxemia on home 2 oxygen 3.5 L, congestive heart failure, who presented to the emergency department because of worsening shortness of breath. She was found to have mild wheezing and crackles on physical exams. Initial workup a chest x-ray revealed that she had pulmonary edema and pleural effusions, cardiomegaly. She was subsequently admitted for possible congestive heart failure exacerbation or COPD exacerbation. HOSPITAL COURSE: Ms. Quintero was admitted to the medical floor. She was started on IV diuretic therapy, antibiotics, steroids. Over the course of the hospital stay, she improved remarkably. She was back down to her 3.5 L on oxygen and she was saturating over 96. Breathing significantly improved. Her creatinine continued to be around 1.5 to 1.8 which has been her baseline. Ms. Germain was also evaluated on a daily basis by physical therapy. Her blood cultures came back 48 hours negative. Her flu was also negative. She was treated with IV antibiotics, steroids, and she got better. This morning, she is doing a lot better. She feels she is back to her baseline. We think she is fairly stable to be discharged. She will need to follow up with her primary care doctor. During the hospital course, Ms. Quintero was also found to be iron and folic acid deficient. She was replaced with IV infusion of both of them and has been transitioned to p.o. supplements. DISCHARGE INSTRUCTIONS: All the discharge instructions have been discussed with her. She voiced understanding. TIME SPENT FOR DISCHARGE: 38 minutes. cc: Otis Ware MD
== END 2019-07-24 17:08 | disposition home health service (06) | DRG 291 ==
LOC: SUPCPDRO → ED 07:21 → 2N 12:20 → SUATTDRO 12:20 → 3N 07-23 19:03
PROVIDERS: ATTEND Internal Medicine